=== PATIENT | female | born 1940 | race Two or more races ===

== ENCOUNTER 2018-07-19 17:50 | Inpatient (IN) | payer MEDICARE, MEDICAID ==
[~2018-07-19] VITALS: Ht 152.4 cm; Wt 66.2 kg
[~2018-07-19 17:50] MED LIST: ACET-2605 PO; ACET-868 PO; ACID1TAB12 PO; AMOX-430 PO; ASPI-1169 PO; BISA10SU8 RC; DIAZ5TAB4 PO; IBUP-1953 PO; LISI-603 PO; NA P133E RC
--- NOTE | 2018-07-19 18:10 | NUR ---
Vahid fatima in [facility] - 07/19/18 at 1904 by DHAVAL CHAIR MECHANIC AT BEDSIDE
--- NOTE | 2018-07-19 18:15 | NUR ---
BIB PRIVATE AMB. 77 YEAR OLD FEMALE FROM [facility] PER [address]. COOK FOR EVAL ON CXR RESULT. C/O WEAKNESS. DENIES CP, SOB, DIZZINESS, N/V @ THIS TIME. ALERT AND ORIENTED X4, BREATHING EVEN AND UNLABORED WITH NO DISTRESS NOTED. SKIN WARM TO TOUCH AND INTACT. AWAITING TO BE SEEN BY .
--- NOTE | 2018-07-19 18:20 | NUR ---
MULCHER OPERATOR AT BEDSIDE
[2018-07-19] MEDS ORDERED: MAGN400O6 PO (18:31)
[2018-07-19] MEDS ORDERED: SERT25TA PO (18:31)
[2018-07-19] MEDS ORDERED: LORA10TA68 PO (18:31)
[2018-07-19] MEDS ORDERED: SODI45SP10 BNOSTRILS (18:31)
[2018-07-19 18:35] LABS: BASOPHILS # (AUTO) 0.1 /CMM (0.0-0.2); BASOPHILS % (AUTO) 1.2 % (0.0-2.0); HEMATOCRIT 38 % (33-45); HEMOGLOBIN 12.6 g/dL (11.5-14.8); LYMPHOCYTES # (AUTO) 2.5 /CMM (0.8-4.8); LYMPHOCYTES % (AUTO) 26.4 % (20.0-44.0); MEAN CORPUSCULAR HGB CONC 33 g/dl (31.0-36.0); MEAN CORPUSCULAR VOLUME 98 fL (82-100); MONOCYTES # (AUTO) 0.7 /CMM (0.1-1.30); MONOCYTES % (AUTO) 6.9 % (2.0-12.0); NEUTROPHILS # (AUTO) 5.6 /CMM (1.8-8.9); NEUTROPHILS % (AUTO) 58.5 % (43.0-81.0); PLATELET COUNT (AUTO) 327 /CMM (150-450); RED BLOOD CELL COUNT(AUTO) 3.86 MIL/uL (4.0-5.2); WHITE BLOOD COUNT (AUTO) 9.6 K/uL (4.3-11.0)
[2018-07-19 18:47] LABS: CALCIUM, SERUM 8.9 mg/dL (8.5-10.1); CARBON DIOXIDE 31 mmol/L (21-32); CHLORIDE 104 mmol/L (98-107); CREATININE 0.9 mg/dL (0.6-1.3); GLUCOSE 101 mg/dL (74-106); POTASSIUM 4.4 mmol/L (3.5-5.1); SODIUM SERUM 142 mmol/L (136-145); UREA NITROGEN, BLOOD 19 mg/dL (7-18)
[2018-07-19 19:00] LABS: ALANINE AMINOTRANSFERASE 21 U/L (12-78); ALBUMIN 3.4 g/dL (3.4-5.0); ALKALINE PHOSPHATASE 69 U/L (46-116); ASPARTATE AMINOTRANSFERASE 11 U/L (15-37); B-TYPE NATRIURETIC PEPTIDE 14 PG/ML (0-125); BILIRUBIN,TOTAL 0.2 mg/dL (0.2-1.0)
--- NOTE | 2018-07-19 19:30 | NUR ---
REPORT GIVEN TO HOV TO CONTINUE ABDULLAHI
--- NOTE | 2018-07-19 19:31 | NUR ---
CALLED [facility] SINGLE POINTED OPERATOR CECILIO GAINES WAS PAGED
--- NOTE | 2018-07-19 19:47 | NUR ---
324-2 TELE DX CHF ADMITTING EDER
--- NOTE | 2018-07-19 19:55 | NUR ---
REPORT GIVEN TO KIMBERLEE BENITEZ FOR ABDULLAHI.
[2018-07-19 20:00] VITALS: BP 175/96
[2018-07-19] MEDS ORDERED: NITROGLYCERIN 0.4 MG/TAB BOTTLE SL PRN (20:00)
--- NOTE | 2018-07-19 20:38 | NUR ---
ME/RN RECEIVED PATIENT FROM E.. VIA [facility], PATIENT WAS AWAKE, ALERT, ORIENTED, COMFORTABLE, NO C/O PAIN, NO DISTRES NOTED, ADMISSION DONE PER PROTOCOL, PLAN OF CARE DISCUSSED WITH THE PATIENT AND VERBALIZED UNDERSTANDING AND AGREEMENT, TAUGHT THE USE OF CALL LIGHT AND PLACED IT AT BEDSIDE WITHIN REACH, SNACK GIVEN PER PATIENT'S REQUEST. WILL MONITOR.
[2018-07-19] MEDS ORDERED: ACETAMINOPHEN 325 MG TABLET PO PRN (22:30)
[2018-07-19] MEDS ORDERED: MAGNESIUM HYDROXIDE 30 ML UDC PO PRN (22:30)
[2018-07-19] MEDS ORDERED: BISACODYL SUPP (10 MG) 10 MG/SUPP.RECT SUPP.RECT RC PRN (22:30)
[2018-07-19] MEDS ORDERED: SALINE NASAL SPRAY 0.65% 1 BOTTLE BOTTLE NS PRN (22:30)
[2018-07-19] MEDS ORDERED: LORATADINE 10 MG TABLET PO PRN (22:30)
[2018-07-19] MEDS ORDERED: NA PHOS,M-B/NA PHOS,DI-BA 1 EA ENEMA RC PRN (22:30)
[2018-07-19] MEDS ORDERED: IBUPROFEN 400 MG TABLET PO PRN (22:30)
[2018-07-19] MEDS: DIAZEPAM 5 MG TABLET PO SCH (22:53)
--- NOTE | 2018-07-19 23:00 | NUR ---
MS/RN CECILIO GAINES NP, IS AT BEDSIDE AT THIS TIME.
[2018-07-20] VITALS: BP 154/86
[2018-07-20] MEDS ORDERED: CLONIDINE HCL 0.1 MG TABLET PO PRN (01:00)
[2018-07-20 07:13] LABS: BASOPHILS # (AUTO) 0.1 /CMM (0.0-0.2); BASOPHILS % (AUTO) 0.8 % (0.0-2.0); EOSINOPHILS % (AUTO) 8.1 % (0.0-6.0); HEMATOCRIT 39 % (33-45); HEMOGLOBIN 12.6 g/dL (11.5-14.8); LYMPHOCYTES # (AUTO) 2.7 /CMM (0.8-4.8); LYMPHOCYTES % (AUTO) 31.3 % (20.0-44.0); MEAN CORPUSCULAR HGB CONC 33 g/dl (31.0-36.0); MEAN CORPUSCULAR VOLUME 97 fL (82-100); MONOCYTES # (AUTO) 0.5 /CMM (0.1-1.30); MONOCYTES % (AUTO) 5.8 % (2.0-12.0); NEUTROPHILS # (AUTO) 4.7 /CMM (1.8-8.9); PLATELET COUNT (AUTO) 294 /CMM (150-450); RED BLOOD CELL COUNT(AUTO) 3.96 MIL/uL (4.0-5.2); WHITE BLOOD COUNT (AUTO) 8.7 K/uL (4.3-11.0)
[2018-07-20 07:33] LABS: CALCIUM, SERUM 8.5 mg/dL (8.5-10.1); CARBON DIOXIDE 26 mmol/L (21-32); CHLORIDE 106 mmol/L (98-107); CREATININE 0.7 mg/dL (0.6-1.3); GLUCOSE 94 mg/dL (74-106); MAGNESIUM 2.3 mg/dL (1.8-2.4); PHOSPHORUS 3.7 mg/dL (2.5-4.9); POTASSIUM 4.2 mmol/L (3.5-5.1); SODIUM SERUM 141 mmol/L (136-145); UREA NITROGEN, BLOOD 21 mg/dL (7-18)
[2018-07-20 07:34] LABS: APPEARANCE,URINE CLEAR (CLEAR); BILIRUBIN,URINE NEGATIVE (NEGATIVE); BLOOD, URINE NEGATIVE Ery/uL (NEGATIVE); COLOR,URINE YELLOW (YELLOW); KETONES,URINE NEGATIVE (NEGATIVE); LEUKOCYTE ESTERASE ,URINE NEGATIVE (NEGATIVE); NITRITE, URINE NEGATIVE (NEGATIVE); PROTEIN,URINE NEGATIVE (NEGATIVE); UGLUCOSE NEGATIVE (NEGATIVE); UROBILINOGEN,URINE 0.2 EU/dL (0.2)
--- NOTE | 2018-07-20 07:56 | NUR ---
MS RN OPENING NOTE RECEIVED ASLEEP IN BED LOCKED IN LOWEST POSITION WITH SIDERAILS UP x2 FOR SAFETY. ABLE TO COMMUNICATE NEEDS. ALERT AND ORIENTED x4. NO FACIAL GRIMACING NOTED FOR PAIN. NO SOB OR DISTRESS NOTED ON ROOM AIR TOLERATING WELL. BRP. AMBULATORY WITH ASSISTANCE. CARDIAC DIET. LEFT AC INTACT AND PATENT NO REDNESS OR SWELLING NO IV FLUIDS RUNNING AT THIS TIME. CHEST X-RAY AND LABS ORDERED. DAILY WEIGHT. WILL CONTINUE CONTINUITY OF CARE.
[2018-07-20 08:00] VITALS: BP 124/68
[2018-07-20 08:24] LABS: CHOLESTEROL 182 mg/dL (<200); HDL CHOLESTEROL 70 mg/dL (40-60); LDL 108 mg/dL (0-99); THYROID STIMULATING HORMONE 1.437 uIU/mL (0.358-3.74); TRIGLYCERIDES 73 mg/dL (30-150)
[2018-07-20] MEDS: DIAZEPAM 5 MG TABLET PO SCH ×2 (08:28→12:11)
[2018-07-20] MEDS ORDERED: ENOXAPARIN SODIUM 40 MG/0.4 ML DISP.SYRIN SQ SCH (09:00)
[2018-07-20] MEDS ORDERED: ASPIRIN 81 MG TAB.CHEW PO SCH (09:00)
[2018-07-20] MEDS ORDERED: FUROSEMIDE 40 MG/4 ML VIAL IV SCH ×2 (09:00)
[2018-07-20] MEDS ORDERED: SERTRALINE HCL 25 MG TABLET PO SCH (09:00)
[2018-07-20] MEDS ORDERED: LISINOPRIL (20MG) 20 MG TABLET PO SCH ×2 (09:00)
[2018-07-20] MEDS ORDERED: DIAZEPAM 5 MG TABLET PO SCH (09:00)
[2018-07-20] MEDS ORDERED: DOCUSATE SODIUM 100 MG CAPSULE PO SCH (09:00)
[2018-07-20 09:21] VITALS: BP 143/86
--- NOTE | 2018-07-20 09:21 | NUR ---
MS RN NOTE PATIENT ONLY WANTED TO TAKE 20 MG NOT 40MG. OTHER 20MG WASTED. SHE CONCERNED THAT " AT THE CUSTODIAL I ONLY TAKE 20 MG TWICE A DAY AND WILL NOT TAKE 40MG MY BLOOD PRESSURE WILL GO DOWN DRAMATICALLY. I WILL TAKE 1/2 PILLS GIVEN TO ME". NOTIFIED -NERY
--- NOTE | 2018-07-20 10:30 | NUR ---
MS RN NOTE PER DR. GABRIEL NOT TO ADMINISTER LASIX IV DOSE AT THIS TIME AND PATIENT REFUSED LASIX WELL. ORDERED NOTED AND CARRIED OUT.
--- NOTE | 2018-07-20 10:30 | NUR ---
MS RN NOTE PATIENT REFUSED SCHEDULED ZOLOFT DOSE. PATIENT STATED "ZOLOFT MAKES ME FEEL WEIRD AND I DONT TAKE IT AT THE SHELTER"
--- NOTE | 2018-07-20 11:39 | NUR ---
ms rn note report given to rn powerhouse mechanic supervisor- fredrick at [facility]. all discharge instructions given to rn powerhouse mechanic supervisor. discharge instructions received back. all nursing care needs endorsed to powerhouse mechanic supervisor.
--- NOTE | 2018-07-20 12:36 | NUR ---
TEACHER OF THE HEARING IMPAIRED NOTE PATIENT DISCHARGED INSTABLE CONDITION BACK TO [facility]. ALL DISCHARGE INSTRUCTIONS GIVEN TO RN CREDIT REVIEW OFFICER-SHIRLEY AND PATIENT, PATIENT ABLE TO RETURN BACK INSTRUCTIONS. ALL BELONGINGS ACCOUNTED FOR AND SENT WITH PATIENT UPON DISCHARGE. SKIN INTACT AND PATENT, IV REMOVED. ALERT AND ORIENTED X4. NO PAIN NOTED AT THIS TIME. NO SOB OR DISTRESS NOTED ON ROOM AIR TOLERATING WELL. ALL DUE MEDICATIONS GIVEN ORDERED. ALL NURSING CARE NEEDS RENDERED. LEFT VIA AMBULANCE
== END 2018-07-20 12:30 | DRG 293 ==
LOC: ER 17:56 → TELE 19:49 → MED 07-20 02:07
PROVIDERS: ADMIT Registered Nurse; ATTEND Student in an Organized Health Care Education/Training Program
DX: I11.0 Hypertensive heart disease with heart failure (principal); J06.9 Acute upper respiratory infection, unspecified; E86.0 Dehydration; M19.90 Unspecified osteoarthritis, unspecified site; M79.2 Neuralgia and neuritis, unspecified; F41.9 Anxiety disorder, unspecified; E66.9 Obesity, unspecified; Z68.28 Body mass index [BMI] 28.0-28.9, adult; Z88.2 Allergy status to sulfonamides; K21.9 Gastro-esophageal reflux disease without esophagitis; I50.33 Acute on chronic diastolic (congestive) heart failure
CPT/HCPCS: 36415; 71045-TC; 80048-TC; 80061-TC; 80076-TC; 81000-TC; 83605-TC; 83735-TC; 83880; 84100-TC; 84443-TC; 84484-TC; 85025-TC; 85730-TC; 87040-TC; 87081-TC; 93307-TC; A4606; G0378; J1650; J1940; Z7610

== ENCOUNTER 2018-09-25 14:20 | Outpatient (CLI) | payer MEDICARE, MEDICAID ==
[~2018-09-25 14:20] MED LIST changes: -ACID1TAB12 PO; -AMOX-430 PO; +LORA10TA68 PO; +MAGN400O6 PO; +SERT25TA PO; +SODI45SP10 BNOSTRILS
== END 2018-09-25 23:59 ==
LOC: WOU 14:20
PROVIDERS: ATTEND Surgery
DX: N64.4 Mastodynia (principal); L98.9 Disorder of the skin and subcutaneous tissue, unspecified; E66.09 Other obesity due to excess calories; R26.2 Difficulty in walking, not elsewhere classified; Z68.28 Body mass index [BMI] 28.0-28.9, adult
CPT/HCPCS: G0463

== ENCOUNTER 2018-12-22 00:26 | Emergency (ER) | payer MEDICARE, MEDICAID ==
[~2018-12-22] VITALS: Ht 152.4 cm; Wt 63.0 kg
--- NOTE | 2018-12-22 00:30 | NUR ---
RADHA FROM [facility]. WITH COMPLAINT FOR LOW O2 SAT AND SOB. ASSISTED TO ER BED 10 COMFORTABLY. [facility] PROVIDED. Addendum: 12/22/18 at 0045 by MARII PATIENT CLAIMED O2 SAT DROPS TO 87% RA VIA PULSE OX LASTED 2-3 HRS. PATIENT THEN SUMMONED TO NIGHT RN TO SEND HER OUT FOR MGT.
--- NOTE | 2018-12-22 00:38 | NUR ---
SEEN AND EXAMINED BY DR. BALDERAS
--- NOTE | 2018-12-22 00:49 | NUR ---
ECG DONE BY SEARCH OPTIMIZATION ANALYST AT BEDSIDE.
[2018-12-22 00:51] LABS: BASOPHILS # (AUTO) 0.1 /CMM (0.0-0.2); BASOPHILS % (AUTO) 1.6 % (0.0-2.0); EOSINOPHILS % (AUTO) 10.7 % (0.0-6.0); HEMATOCRIT 37 % (33-45); HEMOGLOBIN 12.8 g/dL (11.5-14.8); LYMPHOCYTES % (AUTO) 15.8 % (20.0-44.0); MEAN CORPUSCULAR HGB CONC 35 g/dl (31.0-36.0); MEAN CORPUSCULAR VOLUME 97 fL (82-100); MONOCYTES # (AUTO) 0.6 /CMM (0.1-1.30); MONOCYTES % (AUTO) 8.6 % (2.0-12.0); NEUTROPHILS # (AUTO) 4.1 /CMM (1.8-8.9); NEUTROPHILS % (AUTO) 63.3 % (43.0-81.0); PLATELET COUNT (AUTO) 313 /CMM (150-450); RED BLOOD CELL COUNT(AUTO) 3.84 MIL/uL (4.0-5.2); WHITE BLOOD COUNT (AUTO) 6.4 K/uL (4.3-11.0)
[2018-12-22] MEDS ORDERED: IPRATROPIUM NEB FS 0.5 MG/2.5 ML AMPUL.NEB ONE (00:54)
[2018-12-22] MEDS ORDERED: ALBUTEROL FS 2.5 MG/3 ML VIAL.NEB ONE (00:54)
--- NOTE | 2018-12-22 00:55 | NUR ---
CHEST X-RAY DONE BY BONE DRIER AT BEDSIDE.
--- NOTE | 2018-12-22 00:57 | NUR ---
BREATHING TX AND RA ABG DONE BY RT.
[2018-12-22 00:59] LABS: CARBON DIOXIDE 26 mmol/L (21-32); CHLORIDE 101 mmol/L (98-107); GLUCOSE 109 mg/dL (74-106); POTASSIUM 4.1 mmol/L (3.5-5.1); SODIUM SERUM 138 mmol/L (136-145); UREA NITROGEN, BLOOD 20 mg/dL (7-18)
[2018-12-22] MEDS ORDERED: IPRATROPIUM NEB FS 0.5 MG/2.5 ML AMPUL.NEB NEB ONE (01:00)
[2018-12-22] MEDS ORDERED: ALBUTEROL FS 2.5 MG/3 ML VIAL.NEB CONTNEB ONE (01:00)
[2018-12-22 01:11] LABS: ALANINE AMINOTRANSFERASE 31 U/L (12-78); ALBUMIN 3.5 g/dL (3.4-5.0); ALKALINE PHOSPHATASE 68 U/L (46-116); ASPARTATE AMINOTRANSFERASE 18 U/L (15-37); B-TYPE NATRIURETIC PEPTIDE 19 PG/ML (0-125); BILIRUBIN,TOTAL 0.2 mg/dL (0.2-1.0); TOTAL PROTEIN, SERUM 7.4 g/dL (6.4-8.2)
[2018-12-22 01:11] LABS: ABG BASE EXCESS 0.4 mmol/L; ABG OXYGEN SATURATION 90.5 % (92.0-98.5); ABG PCO2 40.7 mmHg (35.0-45.0); ABG PH 7.408 (7.350-7.450); ABG PO2 60.3 mmHg (75.0-100.0); AaDO2 40.7 mmHg; COHb 0.6 % (0.5-1.5); MetHb 0.3 % (0.0-1.5); O2Hb 89.7 % (94.0-97.0); SITE, ABG Right Radial; VENT MODE, BG ROOM AIR
--- NOTE | 2018-12-22 02:17 | NUR ---
[facility] ETA [phone]. TRIP NUMBER [id number]
--- NOTE | 2018-12-22 02:30 | NUR ---
D/C INSTRUCTIONS GIVEN TO PATIENT. PRINTED MATERIAL AND PRESCRIPTION EXPLAINED AND GIVEN TO PATIENT. ALL INQUIRIES ANSWERED WITH SATISFACTION. REPORT GIVEN TO SIOBHAN VICENTE OF [address] [place] [address]. ETA FOR LEGAL RECORDS CLERK IN 30 MINS.
--- NOTE | 2018-12-22 02:55 | NUR ---
PICKED UP BY [facility] UNIT #[id number]. PATIENT IN STABLE CONDITION. ABLE TO TRANSFER BY SELF FROM ER BED TO STRETCHER. NO SOB NOTED. WITH MINIMAL PRODUCTIVE COUGH NOTED. VS WNL. REPORT GIVEN TO EMT. PATIENT LEFT AT THIS TIME WITH ALL BELONGINGS NOTED AND ACCOUNTED FOR.
[2018-12-22 02:59] VITALS: BP 130/87
== END 2018-12-22 02:55 ==
LOC: ER 00:28
DX: J40 Bronchitis, not specified as acute or chronic (principal); I11.0 Hypertensive heart disease with heart failure; I50.9 Heart failure, unspecified; G62.9 Polyneuropathy, unspecified; F41.9 Anxiety disorder, unspecified; E55.9 Vitamin D deficiency, unspecified; Z79.82 Long term (current) use of aspirin; Z88.2 Allergy status to sulfonamides; Z88.5 Allergy status to narcotic agent; Z88.8 Allergy status to other drugs, medicaments and biological substances; Z88.9 Allergy status to unspecified drugs, medicaments and biological substances
CPT/HCPCS: 36415; 36600; 71045-TC; 80048-TC; 80076-TC; 82803-TC; 82962-TC; 83880; 84484-TC; 85025-TC; 85730-TC; 87040-TC

== ENCOUNTER 2019-01-12 17:14 | Emergency (ER) | payer MEDICARE, MEDICAID ==
[~2019-01-12] VITALS: Ht 152.4 cm; Wt 69.4 kg
--- NOTE | 2019-01-12 17:15 | NUR ---
AGUSTIN FROM [facility], C/O OF COUGH/ CONGESTION. TO ER BED 9, HOOKED TO MONITOR, CHANGED TO GOWN, PROVIDED W WARM BLANKET, AWAITING MD SORIANO.
--- NOTE | 2019-01-12 17:53 | NUR ---
DR MADRID AT BEDSIDE
[2019-01-12 18:27] LABS: BASOPHILS # (AUTO) 0.1 /CMM (0.0-0.2); BASOPHILS % (AUTO) 0.9 % (0.0-2.0); EOSINOPHILS % (AUTO) 8.3 % (0.0-6.0); HEMATOCRIT 36 % (33-45); LYMPHOCYTES # (AUTO) 1.8 /CMM (0.8-4.8); LYMPHOCYTES % (AUTO) 18.5 % (20.0-44.0); MEAN CORPUSCULAR HGB CONC 34 g/dl (31.0-36.0); MEAN CORPUSCULAR VOLUME 99 fL (82-100); MONOCYTES # (AUTO) 0.8 /CMM (0.1-1.30); MONOCYTES % (AUTO) 8.3 % (2.0-12.0); NEUTROPHILS # (AUTO) 6.4 /CMM (1.8-8.9); PLATELET COUNT (AUTO) 352 /CMM (150-450); RED BLOOD CELL COUNT(AUTO) 3.62 MIL/uL (4.0-5.2); WHITE BLOOD COUNT (AUTO) 9.9 K/uL (4.3-11.0)
[2019-01-12 18:35] LABS: CALCIUM, SERUM 9.1 mg/dL (8.5-10.1); CARBON DIOXIDE 28 mmol/L (21-32); CHLORIDE 103 mmol/L (98-107); CREATININE 0.8 mg/dL (0.6-1.3); GLUCOSE 100 mg/dL (74-106); POTASSIUM 4.1 mmol/L (3.5-5.1); SODIUM SERUM 140 mmol/L (136-145); UREA NITROGEN, BLOOD 19 mg/dL (7-18)
[2019-01-12 18:47] LABS: ALANINE AMINOTRANSFERASE 21 U/L (12-78); ALBUMIN 3.3 g/dL (3.4-5.0); ALKALINE PHOSPHATASE 74 U/L (46-116); ASPARTATE AMINOTRANSFERASE 10 U/L (15-37); B-TYPE NATRIURETIC PEPTIDE 34 PG/ML (0-125); BILIRUBIN,TOTAL 0.2 mg/dL (0.2-1.0); TOTAL PROTEIN, SERUM 7.1 g/dL (6.4-8.2)
--- NOTE | 2019-01-12 19:44 | NUR ---
REPORT GIVEN TO LANCE MCCANN FOR ABDULLAHI
--- NOTE | 2019-01-12 19:54 | NUR ---
SPOKE WITH [facility] FOR BLS TRANSPORT ETA [phone] TRIP#[id number]. SPOKE WITH DOROTHEA
--- NOTE | 2019-01-12 20:07 | NUR ---
PT RECEIVED FROM SIOBHAN ULCAS FOR ABDULLAHI. PT IN BED. NAD. AWAITING FOR TRANSPORT BACK.
--- NOTE | 2019-01-12 20:54 | NUR ---
[facility] ETA 10MINS.
--- NOTE | 2019-01-12 21:36 | NUR ---
GAVE REPORT TO [facility] FOR TRANSPORTATION ABDULLAHI
--- NOTE | 2019-01-12 21:36 | NUR ---
REPORT GIVEN TO SIOBHAN KENNY AT [facility].
[2019-01-12 21:52] VITALS: BP 138/81
== END 2019-01-12 21:52 | disposition home or self-care (01) ==
LOC: ER 17:19
DX: J40 Bronchitis, not specified as acute or chronic (principal); I11.0 Hypertensive heart disease with heart failure; I50.9 Heart failure, unspecified; F41.9 Anxiety disorder, unspecified; G62.9 Polyneuropathy, unspecified; Z88.2 Allergy status to sulfonamides; Z88.5 Allergy status to narcotic agent; Z88.6 Allergy status to analgesic agent; Z88.8 Allergy status to other drugs, medicaments and biological substances; Z79.899 Other long term (current) drug therapy; Z79.82 Long term (current) use of aspirin
CPT/HCPCS: 36415; 71045-TC; 80048-TC; 80076-TC; 83880; 84484-TC; 85025-TC

== ENCOUNTER 2019-02-15 23:49 | Emergency (ER) | payer MEDICARE, MEDICAID ==
[~2019-02-15] VITALS: Ht 152.4 cm; Wt 63.5 kg
[~2019-02-15 23:49] MED LIST changes: +BISA10SU11 RC; -BISA10SU8 RC
[2019-02-16] MEDS ORDERED: ACETAMINOPHEN ES 500 MG TABLET ONE (00:36)
[2019-02-16 00:50] LABS: BASOPHILS # (AUTO) 0.1 /CMM (0.0-0.2); BASOPHILS % (AUTO) 1.4 % (0.0-2.0); EOSINOPHILS % (AUTO) 12.3 % (0.0-6.0); HEMATOCRIT 35 % (33-45); HEMOGLOBIN 11.9 g/dL (11.5-14.8); LYMPHOCYTES # (AUTO) 2.6 /CMM (0.8-4.8); LYMPHOCYTES % (AUTO) 32.5 % (20.0-44.0); MEAN CORPUSCULAR HGB CONC 34 g/dl (31.0-36.0); MEAN CORPUSCULAR VOLUME 98 fL (82-100); MONOCYTES # (AUTO) 0.5 /CMM (0.1-1.30); MONOCYTES % (AUTO) 5.8 % (2.0-12.0); NEUTROPHILS # (AUTO) 3.8 /CMM (1.8-8.9); PLATELET COUNT (AUTO) 291 /CMM (150-450); RED BLOOD CELL COUNT(AUTO) 3.56 MIL/uL (4.0-5.2)
[2019-02-16 00:58] LABS: CALCIUM, SERUM 8.8 mg/dL (8.5-10.1); CARBON DIOXIDE 29 mmol/L (21-32); CHLORIDE 100 mmol/L (98-107); GLUCOSE 104 mg/dL (74-106); POTASSIUM 4.3 mmol/L (3.5-5.1); SODIUM SERUM 134 mmol/L (136-145); UREA NITROGEN, BLOOD 26 mg/dL (7-18)
[2019-02-16] MEDS: ACETAMINOPHEN ES 500 MG TABLET PO ONE (01:04)
--- NOTE | 2019-02-16 01:05 | NUR ---
PT BIBRA. C/O "HAVING NECK PAIN AND FEELING WEAK" -SOB NOTED. AOX4. AMBULATORY.VSS
[2019-02-16 01:42] LABS: APPEARANCE,URINE Clear (CLEAR); BILIRUBIN,URINE Negative (NEGATIVE); BLOOD, URINE Negative Ery/uL (NEGATIVE); COLOR,URINE Yellow (YELLOW); KETONES,URINE Negative (NEGATIVE); LEUKOCYTE ESTERASE ,URINE Small (NEGATIVE); NITRITE, URINE Negative (NEGATIVE); PH,URINE 5.5 (5.0-8.0); PROTEIN,URINE Negative (NEGATIVE); UGLUCOSE Negative (NEGATIVE); UROBILINOGEN,URINE 0.2 EU/dL (0.2)
[2019-02-16 02:01] LABS: BACTERIA,URINE None seen /HPF (None Seen); RBC,URINE 0-2 /HPF (0-2); SQUAMOUS EPITHELIAL CELL,UR Few /HPF (None Seen)
--- NOTE | 2019-02-16 03:16 | NUR ---
[facility] CALLED FOR TRANSPORT. ETA 1 HR. TRIP# [id number]
[2019-02-16 04:59] VITALS: BP 111/73
== END 2019-02-16 05:00 | disposition home or self-care (01) ==
LOC: ER 02-16
DX: R53.1 Weakness (principal); R51 Headache; I11.0 Hypertensive heart disease with heart failure; I50.9 Heart failure, unspecified; G62.9 Polyneuropathy, unspecified; F41.9 Anxiety disorder, unspecified; Z88.2 Allergy status to sulfonamides; Z88.5 Allergy status to narcotic agent; Z88.1 Allergy status to other antibiotic agents; Z88.6 Allergy status to analgesic agent; Z79.899 Other long term (current) drug therapy; Z79.82 Long term (current) use of aspirin
CPT/HCPCS: 36415; 70450; 71045; 72125; 80048; 81001; 85025; 93005; 99284; A6403; 81000-TC

== ENCOUNTER 2019-08-20 21:15 | Inpatient (IN) | payer MEDICARE, MEDICAID ==
[~2019-08-20] VITALS: Ht 152.4 cm; Wt 68.5 kg
[2019-08-20 20:40] VITALS: BP 139/78
--- NOTE | 2019-08-20 21:30 | NUR ---
PT BIB RA WITH A C/O SOB. PT USES OXYGEN 2.5L VIA NC AT THE FACILITY WHEN NEEDED. PT WAS PLACED ON 2.5L BY RESCUE AND IS SATURATING AT 96%. PT HAS BILATERAL WHEEZES AND IS SOB WITH EXCERTION.
--- NOTE | 2019-08-20 21:40 | NUR ---
20g iv started in rac.
--- NOTE | 2019-08-20 21:50 | NUR ---
PT WAS PLACED ON A BEDPAN AND URINE SAMPLE WAS OBTAINED.
[2019-08-20] MEDS ORDERED: methylPREDNISolone SOD SUCC 125 MG/2ML VIAL ONE (21:57)
[2019-08-20] MEDS ORDERED: ALBUTEROL FS 2.5 MG/3 ML VIAL.NEB NEB ONE (22:00)
[2019-08-20] MEDS ORDERED: methylPREDNISolone SOD SUCC 125 MG/2ML VIAL IV ONE (22:00)
[2019-08-20] MEDS ORDERED: IPRATROPIUM NEB FS 0.5 MG/2.5 ML AMPUL.NEB NEB ONE ×2 (22:00→23:00)
[2019-08-20 22:03] LABS: BASOPHILS # (AUTO) 0.1 /CMM (0.0-0.2); BASOPHILS % (AUTO) 1.8 % (0.0-2.0); EOSINOPHILS % (AUTO) 10.4 % (0.0-6.0); HEMATOCRIT 36 % (33-45); LYMPHOCYTES # (AUTO) 1.4 /CMM (0.8-4.8); LYMPHOCYTES % (AUTO) 18.3 % (20.0-44.0); MEAN CORPUSCULAR HGB CONC 33 g/dl (31.0-36.0); MEAN CORPUSCULAR VOLUME 98 fL (82-100); MONOCYTES # (AUTO) 0.4 /CMM (0.1-1.30); MONOCYTES % (AUTO) 5.1 % (2.0-12.0); NEUTROPHILS # (AUTO) 5.1 /CMM (1.8-8.9); NEUTROPHILS % (AUTO) 64.4 % (43.0-81.0); PLATELET COUNT (AUTO) 315 /CMM (150-450); RED BLOOD CELL COUNT(AUTO) 3.67 MIL/uL (4.0-5.2); WHITE BLOOD COUNT (AUTO) 7.9 K/uL (4.3-11.0)
[2019-08-20 22:11] LABS: CALCIUM, SERUM 9.4 mg/dL (8.5-10.1); CARBON DIOXIDE 31 mmol/L (21-32); CHLORIDE 102 mmol/L (98-107); CREATININE 1.3 mg/dL (0.6-1.3); GLUCOSE 119 mg/dL (74-106); SODIUM SERUM 139 mmol/L (136-145); UREA NITROGEN, BLOOD 22 mg/dL (7-18)
--- NOTE | 2019-08-20 22:14 | NUR ---
PT REC'D MEDICAITON ORDERED.
[2019-08-20] MEDS ORDERED: IPRATROPIUM NEB FS 0.5 MG/2.5 ML AMPUL.NEB ONE ×2 (22:23→22:56)
[2019-08-20] MEDS ORDERED: ALBUTEROL FS 2.5 MG/3 ML VIAL.NEB ONE ×2 (22:23→22:56)
[2019-08-20 22:24] LABS: ALANINE AMINOTRANSFERASE 40 U/L (12-78); ALBUMIN 3.5 g/dL (3.4-5.0); ALKALINE PHOSPHATASE 62 U/L (46-116); ASPARTATE AMINOTRANSFERASE 22 U/L (15-37); B-TYPE NATRIURETIC PEPTIDE 16 PG/ML (0-125); BILIRUBIN,TOTAL 0.2 mg/dL (0.2-1.0)
--- NOTE | 2019-08-20 22:50 | NUR ---
EPIC PAGED FOR PANEL CALL
[2019-08-20] MEDS ORDERED: ALBUTEROL FS 2.5 MG/0.5 ML VIAL.NEB NEB ONE (23:00)
--- NOTE | 2019-08-20 23:05 | NUR ---
epic paged again for panel call
--- NOTE | 2019-08-20 23:16 | NUR ---
called rn sup for tele bed, waiting for bed assignment
--- NOTE | 2019-08-20 23:54 | NUR ---
TELE [id number]
--- NOTE | 2019-08-20 23:55 | NUR ---
PT APPEARS TO BE RESTING COMFORTABLY WITH NO S/S OF PAIN OR DISTRESS NOTED.
--- NOTE | 2019-08-20 23:56 | NUR ---
CALLING REPORT TO SIOBHAN LOREDO
[2019-08-21] MEDS ORDERED: BISACODYL SUPP (10 MG) 10 MG/SUPP.RECT SUPP.RECT RC PRN
[2019-08-21] MEDS ORDERED: SALINE NASAL SPRAY 0.65% 1 BOTTLE BOTTLE NS PRN
[2019-08-21] MEDS ORDERED: ONDANSETRON HCL/PF 4 MG/2 ML VIAL IVP PRN
[2019-08-21] MEDS ORDERED: MAG HYDROX/AL HYDROX/SIMETH 30 ML UDC PO PRN
[2019-08-21] MEDS ORDERED: Z GUARD REMEDY 2 OZ OINT TP PRN
[2019-08-21] MEDS ORDERED: LORATADINE 10 MG TABLET PO PRN
[2019-08-21] MEDS ORDERED: MAGNESIUM HYDROXIDE 30 ML UDC PO PRN
[2019-08-21 00:06] LABS: APPEARANCE,URINE Clear (CLEAR); BILIRUBIN,URINE Negative (NEGATIVE); BLOOD, URINE Negative Ery/uL (NEGATIVE); COLOR,URINE Yellow (YELLOW); KETONES,URINE Negative (NEGATIVE); LEUKOCYTE ESTERASE ,URINE Small (NEGATIVE); NITRITE, URINE Negative (NEGATIVE); PH,URINE 5.5 (5.0-8.0); PROTEIN,URINE Negative (NEGATIVE); UGLUCOSE Negative (NEGATIVE); UROBILINOGEN,URINE 0.2 EU/dL (0.2)
[2019-08-21] MEDS ORDERED: ENOXAPARIN SODIUM 40 MG/0.4 ML DISP.SYRIN SQ ONE (01:00)
[2019-08-21 03:32] LABS: BACTERIA,URINE Few /HPF (None Seen); RBC,URINE 0-2 /HPF (0-2); SQUAMOUS EPITHELIAL CELL,UR Few /HPF (None Seen); WBC,URINE 21-50 /HPF (0-3)
[2019-08-21 04:00] VITALS: BP 115/68
--- NOTE | 2019-08-21 06:46 | NUR ---
E BUSINESS CONSULTANT ADMITTING NOTES RECEIVED PT FROM ER VIA [facility] IN STABLE CONDITION. RESPIRATIONS EVEN AND UNLABORED WITH NO S/S OF ACUTE DISTRESS OR SOB NOTED. NO COMPLAINTS OF PAIN AT THIS TIME. PT NOTED WITH RAC #20G PATENT AND INTACT AND SL. SAFETY MEASURES IN PLACE WITH BED IN LOWEST LOCKED POSITION WITH SIDE RAILS UP X2. ORIENTED PT TO UNIT AND STAFF. CALL LIGHT WITHIN REACH. WILL CONTINUE TO MONITOR.
--- NOTE | 2019-08-21 06:51 | NUR ---
BUTCHER HELPER NOTES PT IN BED AWAKE AND ABLE TO MAKE NEEDS KNOWN. RESPIRATIONS EVEN AND UNLABORED WITH NO S/S OF ACUTE DISTRESS OR SOB NOTED. NO COMPLAINTS OF PAIN AT THIS TIME. PT NOTED WITH RAC #20G PATENT AND INTACT AND SL. SAFETY MEASURES IN PLACE WITH BED IN LOWEST LOCKED POSITION WITH SIDE RAILS UP X2. CALL LIGHT WITHIN REACH. WILL ENDORSE TO ONCOMING NURSE FOR ABDULLAHI.
--- NOTE | 2019-08-21 07:50 | NUR ---
TELE/RN OPENING NOTE Patient is resting in bed, A/O x4, showing no signs of acute distress or SOB, breathing is even and unlabored, saturating 95% on 3L NC. IV line in the RAC is clean and intact s/l. Patient has no complaints of pain at this time. Patient is able to ambulate to the bathroom on her own. Bed is in lowest position, side rails x2 in upright position call light is within reach and patient is aware of how to call for assistance when needed. Will continue with plan of care.
[2019-08-21 08:00] VITALS: BP 122/73
[2019-08-21 08:23] LABS: BASOPHILS % (AUTO) 0.4 % (0.0-2.0); EOSINOPHILS % (AUTO) 0.1 % (0.0-6.0); HEMATOCRIT 37 % (33-45); HEMOGLOBIN 12.4 g/dL (11.5-14.8); LYMPHOCYTES # (AUTO) 0.6 /CMM (0.8-4.8); LYMPHOCYTES % (AUTO) 5.7 % (20.0-44.0); MEAN CORPUSCULAR HGB CONC 33 g/dl (31.0-36.0); MEAN CORPUSCULAR VOLUME 98 fL (82-100); MONOCYTES # (AUTO) 0.1 /CMM (0.1-1.30); MONOCYTES % (AUTO) 0.6 % (2.0-12.0); NEUTROPHILS # (AUTO) 10.1 /CMM (1.8-8.9); NEUTROPHILS % (AUTO) 93.2 % (43.0-81.0); PLATELET COUNT (AUTO) 341 /CMM (150-450); WHITE BLOOD COUNT (AUTO) 10.8 K/uL (4.3-11.0)
[2019-08-21 08:31] LABS: CALCIUM, SERUM 9.4 mg/dL (8.5-10.1); MAGNESIUM 1.8 mg/dL (1.8-2.4); PHOSPHORUS 3.2 mg/dL (2.5-4.9); POTASSIUM 3.9 mmol/L (3.5-5.1)
[2019-08-21 08:39] LABS: THYROID STIMULATING HORMONE 0.74 uIU/mL (0.358-3.74)
[2019-08-21] MEDS ORDERED: methylPREDNISolone SOD SUCC 40 MG/ML VIAL IV SCH (09:00)
[2019-08-21] MEDS: SERTRALINE HCL 25 MG TABLET PO SCH (09:00)
[2019-08-21] MEDS: ENOXAPARIN SODIUM 30 MG/0.3 ML DISP.SYRIN SQ SCH (09:00)
[2019-08-21] MEDS: ASPIRIN 81 MG TAB.CHEW PO SCH ×2 (09:00→17:11)
[2019-08-21] MEDS: LISINOPRIL (20MG) 20 MG TABLET PO SCH ×2 (09:16→17:00)
[2019-08-21] MEDS: DIAZEPAM 5 MG TABLET PO SCH ×4 (09:16→21:48)
[2019-08-21] MEDS: CEPHALEXIN MONOHYDRATE 500 MG CAPSULE PO SCH ×3 (09:17→17:11)
[2019-08-21] MEDS: methylPREDNISolone SOD SUCC 40 MG/ML VIAL IV SCH ×2 (11:30→17:00)
--- NOTE | 2019-08-21 15:23 | NUR ---
Social service consult requested by Dr. Muniz for continuity of care. Per chart review and MD notes, pt. is a 78-year-old female with a history of hypertension, anxiety, and CHF, who presented to the ER complaining of shortness of breath. PROCESS INSPECTOR met with the pt. bedside and introduced herself and her role. Pt is alert and oriented x 4. Pt's mood is congruent. Pt. states she resides at [facility] and will go back there for short term for rehabilitation. Per pt. she resides alone and will go back home once she is discharged from [facility]. Pt. has good family support from her daughter Sonia and son Trevor. PROCESS INSPECTOR provided pt with active listening and supportive counseling. No other social service needs are requested at this time. PROCESS INSPECTOR updated briefcase sewer Jace regarding pt residing currently at [facility].
[2019-08-21 16:00] VITALS: BP 105/52
--- NOTE | 2019-08-21 16:00 | NUR ---
MS/RN note Called [facility] 3 times to confirm diuretic medication that patient stated she needed to take, was told nurses are in meetings and not able to take a phone call. Medication not seen on [facility] home med list. Offered patient that the MD here can order a diuretic but patient refused and prefers to take the diuretic she has been taking at [facility].
--- NOTE | 2019-08-21 18:30 | NUR ---
MS/RN OPENING NOTE Patient is resting in bed, A/O x4, showing no signs of acute distress or SOB, breathing is even and unlabored, saturating 95% on 3L NC. IV line in the RAC is clean and intact s/l. Patient has no complaints of pain at this time. Patient is able to ambulate to the bathroom on her own. All patient needs met, all due meds given. Bed is in lowest position, side rails x2 in upright position call light is within reach and patient is aware of how to call for assistance when needed. Will endorse to maintenance supervisor 2nd shift.
--- NOTE | 2019-08-21 19:05 | NUR ---
MS RN NOTES RECEIVED PT IN BED AWAKE AND ABLE TO MAKE NEEDS KNOWN. PT A/O X3. RESPIRATIONS EVEN AND UNLABORED WITH NO S/S OF ACUTE DISTRESS OR SOB NOTED. NO COMPLAINTS OF PAIN AT THIS TIME. PT NOTED WITH RAC #20G PATENT AND INTACT AND SL. SAFETY MEASURES IN PLACE WITH BED IN LOWEST LOCKED POSITION WITH SIDE RAILS UP X2. CALL LIGHT WITHIN REACH. WILL CONTINUE TO MONITOR.
[2019-08-21 20:00] VITALS: BP 112/68
[2019-08-21] MEDS: IPRATROPIUM NEB FS 0.5 MG/2.5 ML AMPUL.NEB NEB SCH (20:12)
[2019-08-21] MEDS: ALBUTEROL FS 2.5 MG/0.5 ML VIAL.NEB NEB SCH (20:12)
[2019-08-21] MEDS: ACETAMINOPHEN 325 MG TABLET PO PRN (21:49)
[2019-08-21] MEDS: GUAIFENESIN/D-METHORPHAN HB 5 ML UDC PO PRN (23:38)
[2019-08-22] MEDS: ACETAMINOPHEN 325 MG TABLET PO PRN ×2 (06:11→18:58)
[2019-08-22] MEDS: ALBUTEROL FS 2.5 MG/0.5 ML VIAL.NEB NEB SCH ×4 (07:15→19:16)
[2019-08-22] MEDS: IPRATROPIUM NEB FS 0.5 MG/2.5 ML AMPUL.NEB NEB SCH ×4 (07:15→19:16)
--- NOTE | 2019-08-22 07:15 | NUR ---
RN OPENING NOTES RECEIVED PATIENT IN BED RESTING. A/OX3, ABLE TO MAKE NEEDS KNOWN. NOT IN ANY FORM OF DISTRESS. NO SOB. DENIED PAIN OR DISCOMFORT AT THIS TIME. IV ACCESS INTACT AND PATENT. KEPT PATIENT SAFE AND COMFORTABLE. BED IN LOW/LOCKED POSITION SIDERAILS UPX2, CALL LIGHT IN REACH. WILL CONT TO MONITOR ACCORDINGLY.
--- NOTE | 2019-08-22 07:23 | NUR ---
MS RN NOTES PT IN BED AWAKE AND ABLE TO MAKE NEEDS KNOWN. PT A/O X3. RESPIRATIONS EVEN AND UNLABORED WITH NO S/S OF ACUTE DISTRESS OR SOB NOTED THROUGHOUT SHIFT. NO COMPLAINTS OF PAIN AT THIS TIME. PT NOTED WITH RAC #20G PATENT AND INTACT AND SL. SAFETY MEASURES IN PLACE WITH BED IN LOWEST LOCKED POSITION WITH SIDE RAILS UP X2. CALL LIGHT WITHIN REACH. WILL ENDORSE TO ONCOMING NURSE FOR ABDULLAHI.
[2019-08-22 08:22] VITALS: BP 119/80
[2019-08-22] MEDS: DIAZEPAM 5 MG TABLET PO SCH ×4 (08:39→22:30)
[2019-08-22] MEDS: CEPHALEXIN MONOHYDRATE 500 MG CAPSULE PO SCH ×3 (08:39→18:57)
[2019-08-22] MEDS: ASPIRIN 81 MG TAB.CHEW PO SCH ×2 (08:39→18:58)
[2019-08-22] MEDS: LISINOPRIL (20MG) 20 MG TABLET PO SCH ×2 (08:39→18:57)
[2019-08-22] MEDS: methylPREDNISolone SOD SUCC 40 MG/ML VIAL IV SCH ×2 (08:42→17:00)
[2019-08-22] MEDS: SERTRALINE HCL 25 MG TABLET PO SCH (08:43)
[2019-08-22] MEDS: ENOXAPARIN SODIUM 30 MG/0.3 ML DISP.SYRIN SQ SCH (08:43)
[2019-08-22] MEDS: GUAIFENESIN/D-METHORPHAN HB 5 ML UDC PO PRN ×2 (09:35→22:50)
[2019-08-22] MEDS: MENTHOL/CETYLPYRD (CEPACOL) 1 LOZ LOZENGE PO PRN ×2 (10:42→22:30)
--- NOTE | 2019-08-22 19:30 | NUR ---
MS RN NOTES bedside report recieved from yandel chand. ABLE TO MAKE NEEDS KNOWN. PT A/O X3. RESPIRATIONS EVEN AND UNLABORED WITH NO S/S OF ACUTE DISTRESS OR SOB NOTED THROUGHOUT SHIFT. NO COMPLAINTS OF PAIN AT THIS TIME. PT NOTED WITH RAC #20G PATENT AND INTACT AND SL. SAFETY MEASURES IN PLACE WITH BED IN LOWEST LOCKED POSITION patient sitting at side of bed. CALL LIGHT WITHIN REACH. will cont to monitor.
--- NOTE | 2019-08-22 19:45 | NUR ---
RN CLOSING NOTES PATIENT IN STABLE CONDITION. ALL NEEDS ATTENDED AND PROVIDED. ASSISTED WITH ADLS. ALL DUE MEDICATIONS GIVEN ORDERED. KEPT PATIENT SAFE AND COMFORTABLE. BED IN LOW/LOCKED POSITION. SIDERAILS UPX2. CALL LIGHT IN REACH. ENDORSED TO NIGHT RN FOR ABDULLAHI.
[2019-08-22 22:55] VITALS: BP 122/72
--- NOTE | 2019-08-23 06:30 | NUR ---
RN CLOSING NOTES pt seen in bed with eyes closed. bed down locked sr x2 call light within reach.
[2019-08-23] MEDS: ALBUTEROL FS 2.5 MG/0.5 ML VIAL.NEB NEB SCH ×4 (07:35→15:42)
[2019-08-23] MEDS: IPRATROPIUM NEB FS 0.5 MG/2.5 ML AMPUL.NEB NEB SCH ×3 (07:35→10:49)
[2019-08-23] MEDS ORDERED: METH4TAB3 PO (08:27)
[2019-08-23] MEDS ORDERED: GUAI5SYR PO (08:27)
[2019-08-23] MEDS ORDERED: LEVO500T75 PO (08:27)
[2019-08-23] MEDS: SERTRALINE HCL 25 MG TABLET PO SCH (09:00)
[2019-08-23] MEDS: ENOXAPARIN SODIUM 30 MG/0.3 ML DISP.SYRIN SQ SCH (09:00)
[2019-08-23] MEDS: methylPREDNISolone SOD SUCC 40 MG/ML VIAL IV SCH (09:00)
[2019-08-23 09:31] VITALS: BP 130/70
[2019-08-23] MEDS: ASPIRIN 81 MG TAB.CHEW PO SCH (09:31)
[2019-08-23] MEDS: LISINOPRIL (20MG) 20 MG TABLET PO SCH (09:31)
[2019-08-23] MEDS: DIAZEPAM 5 MG TABLET PO SCH ×3 (09:31→16:56)
[2019-08-23] MEDS: CEPHALEXIN MONOHYDRATE 500 MG CAPSULE PO SCH ×3 (09:31→16:56)
[2019-08-23] MEDS: GUAIFENESIN/D-METHORPHAN HB 5 ML UDC PO PRN (11:04)
--- NOTE | 2019-08-23 17:16 | NUR ---
MS/RN OPENING NOTE Patient is resting in bed, A/O x4, showing no signs of acute distress or SOB, breathing is even and unlabored, saturating >95% on 2L NC. IV line in the RAC is clean and intact s/l. Patient has no complaints of pain at this time. Bed is in lowest position, side rails x2 in upright position call light is within reach and patient is aware of how to call for assistance when needed. Will continue with plan of care.
--- NOTE | 2019-08-23 17:46 | NUR ---
MS/SAUSAGE MACHINE OPERATOR NOTE Patient is medically stable for discharge. Patient is A/O x3, in no acute distress, no SOB noted, breathing is even and unlabored, saturating 95% on RA. Vital signs WNL. DC instructions provided, patient verbalizes understanding. Patient refuses skin assessment. Patient kept clean and dry throughout shift, all patient needs met, all due meds given. ID band removed, IV removed. MD is aware of discharge. [place] [facility] [place] Left the unit via ambulance en route to [facility]. Addendum: 08/23/19 at 1802 by RICKY MORALES RN Report given to Zach MCCANN at [facility].
== END 2019-08-23 17:10 | DRG 202 ==
LOC: ER 21:20 → TELE 08-21 00:07 → MED 08-21 09:24
PROVIDERS: ADMIT Nurse Practitioner Acute Care; ATTEND Registered Nurse
DX: J20.9 Acute bronchitis, unspecified (principal); N39.0 Urinary tract infection, site not specified; F41.9 Anxiety disorder, unspecified; M19.90 Unspecified osteoarthritis, unspecified site; M79.2 Neuralgia and neuritis, unspecified; I11.0 Hypertensive heart disease with heart failure; I50.9 Heart failure, unspecified; Z88.2 Allergy status to sulfonamides
CPT/HCPCS: 36415; 71045-TC; 80048-TC; 80061-TC; 80076-TC; 81000-TC; 83735-TC; 83880; 84100-TC; 84443-TC; 84484-TC; 85025-TC; 87081-TC; 87086-TC; 94799-TC; G0378; J1650; J2920; J2930

== ENCOUNTER 2020-04-18 11:38 | Inpatient (IN) | payer MEDICARE, OTHER ==
[~2020-04-18] VITALS: Ht 152.4 cm; Wt 66.7 kg
[~2020-04-18 11:38] MED LIST changes: +GUAI5SYR PO; +LEVO500T23 PO; +METH4TAB3 PO
--- NOTE | 2020-04-18 12:08 | NUR ---
BIBS FROM HOME. TO ER BED 7. AAOX4. NOT IN RESP DISTRESS. AMBULATORY. CAME WITH CONCERN OF HER BP AND REPORTING SBP NOTED 140s @ HOME. UPON TRIAGE PT IS NOTED WITH BP OF 143/84. PT IS NOTED VERY ANXIOUS. MD AT BEDSIDE FOR EVAL. ORDERS RECEIVED NOTED AND CARRIED OUT.
--- NOTE | 2020-04-18 12:39 | NUR ---
XRAY AT BEDSIDE. BLOOD DRAWN AND SENT TO LAB
--- NOTE | 2020-04-18 12:50 | NUR ---
COVID SWAB DONE AND SENT TO LAB
[2020-04-18 13:06] LABS: BASOPHILS % (AUTO) 0.4 % (0.0-2.0); EOSINOPHILS % (AUTO) 8.6 % (0.0-6.0); HEMATOCRIT 36 % (33-45); HEMOGLOBIN 11.6 g/dL (11.5-14.8); LYMPHOCYTES # (AUTO) 2.1 /CMM (0.8-4.8); LYMPHOCYTES % (AUTO) 27.4 % (20.0-44.0); MEAN CORPUSCULAR HGB CONC 33 g/dl (31.0-36.0); MEAN CORPUSCULAR VOLUME 100 fL (82-100); MONOCYTES # (AUTO) 0.5 /CMM (0.1-1.30); MONOCYTES % (AUTO) 6.7 % (2.0-12.0); NEUTROPHILS # (AUTO) 4.4 /CMM (1.8-8.9); NEUTROPHILS % (AUTO) 56.9 % (43.0-81.0); PLATELET COUNT (AUTO) 317 /CMM (150-450); RED BLOOD CELL COUNT(AUTO) 3.57 MIL/uL (4.0-5.2); WHITE BLOOD COUNT (AUTO) 7.7 K/uL (4.3-11.0)
[2020-04-18 13:17] LABS: CALCIUM, SERUM 8.9 mg/dL (8.5-10.1); CARBON DIOXIDE 27 mmol/L (21-32); CHLORIDE 105 mmol/L (98-107); CREATININE 0.9 mg/dL (0.6-1.3); GLUCOSE 103 mg/dL (74-106); SODIUM SERUM 140 mmol/L (136-145); UREA NITROGEN, BLOOD 19 mg/dL (7-18)
[2020-04-18] MEDS ORDERED: DICY10CA37 PO (13:33)
[2020-04-18] MEDS ORDERED: CHOL10002 PO (13:33)
[2020-04-18] MEDS ORDERED: HYDR25TA4 PO (13:33)
[2020-04-18] MEDS ORDERED: CYAN100096 PO (13:33)
[2020-04-18] MEDS ORDERED: MULT1TAB69 PO (13:33)
[2020-04-18] MEDS ORDERED: DIAZ5TAB4 PO (13:46)
--- NOTE | 2020-04-18 14:01 | NUR ---
IV LINE ESTABLISHED ON RAC 20G
--- NOTE | 2020-04-18 14:07 | NUR ---
GOT BED 314-2
--- NOTE | 2020-04-18 14:52 | NUR ---
REPORT GIVEN TO SIOBHAN SOMMER FOR ABDULLAHI.
--- NOTE | 2020-04-18 15:00 | NUR ---
PT TRANSPORT TO [facility] WITH EMT AT BEDSIDE. PT IS ON STABLE CONDITION FOR TRANSPORT. NAD NOTED
--- NOTE | 2020-04-18 15:45 | NUR ---
TELE/RN NOTE THE PATIENT IS RECEIVED FROM ER ON A GURNEY. PATIENT IS ALERT AND ORIENTED X4. DENIES PAIN. THE PATIENT IN ROOM AIR AND DENIES SOB. RESPIRATION REGULAR AND UNLABORED. RAC G 20 PATENT AND SALINE LOCKED. EXTERNAL TELE BOX READING IS SINUS TACHYCARDIA 118. BED LOW AND LOCKED. SIDE RAILS UP X2. CALL LIGHT WITHIN REACH. WILL ENDORSE TO NIGHTS SHIFT.
[2020-04-18 16:00] VITALS: BP 141/81
[2020-04-18 16:30] VITALS: BP 116/65
[2020-04-18 16:45] VITALS: BP 113/69
[2020-04-18 16:50] VITALS: BP 112/70
--- NOTE | 2020-04-18 17:02 | NUR ---
TELE/RN NOTE THE PATIENT BELIEVES THAT THAT SHE HAS ELEVATED BLOOD PRESSURE BECAUSE IT IS 5 PM AND SHE HAS NOT TAKEN HER SECOND DOSE OF LISINOPRIL 20 MG PO (HOME MED). CHECKED THE PATIENT`S BLOOD PRESSURE SEVERAL TIMES (INCLUDING MANUAL) AND NO ELEVATED BLOOD PRESSURE (SEE THE CHARTING). THE PATIENT IS MADE AWARE THAT THE MD WAS INFORMED ABOUT PLACING ADMITTING ORDER AND DOING MED RECON.
[2020-04-18] MEDS ORDERED: Z GUARD REMEDY 2 OZ OINT TP PRN (18:30)
[2020-04-18] MEDS ORDERED: MAG HYDROX/AL HYDROX/SIMETH 30 ML UDC PO PRN (18:30)
[2020-04-18] MEDS ORDERED: MAGNESIUM HYDROXIDE 30 ML UDC PO PRN (18:30)
[2020-04-18] MEDS ORDERED: ONDANSETRON HCL/PF 4 MG/2 ML VIAL IVP PRN (18:30)
[2020-04-18] MEDS ORDERED: ZOLPIDEM TARTRATE 5 MG TABLET PO PRN (18:30)
[2020-04-18] MEDS ORDERED: HYDROCODONE/APAP 5/325MG TABLET PO PRN (18:30)
[2020-04-18] MEDS: LISINOPRIL (20MG) 20 MG TABLET PO SCH (18:34)
--- NOTE | 2020-04-18 18:41 | NUR ---
TELE/RN NOTE RECEIVED AN ORDER FROM DR GABRIEL FOR MOTRIN 400 MG PO Q6HR FOR PAIN. PER PATIENT SHE TAKES IT AT HOME AND DOES NOT EXPERIENCE ANY ALLERGIC REACTIONS OR ADVERSE SIDE EFFECTS.
--- NOTE | 2020-04-18 18:52 | NUR ---
TELE/RN NOTE THE PATIENT IS ALERT AND ORIENTED X4. RECEIVING OXYGEN AT 2L/MIN VIA NASAL CANNULA AND OXYGEN SATURATION LEVEL IS AT 98%. DENIES SOB. RESPIRATION REGULAR AND UNLABORED. DENIES PAIN AT THIS TIME. RAC G 20 PATENT AND SALINE LOCKED. BED LOW AND LOCKED. SIDE RAILS UP X3. CALL LIGHT WITHIN REACH. WILL ENDORSE TO NIGHTS SHIFT.
[2020-04-18] MEDS: IBUPROFEN 400 MG TABLET PO PRN (19:05)
[2020-04-18 20:00] VITALS: BP 131/69
--- NOTE | 2020-04-18 20:03 | NUR ---
MS/TELE/RN RECEIVED PATIENT AWAKE, ALERT, ORIENTED, MILDLY ANXIOUS ABOUT BP AND OXYGEN SATURATION, REASSURED HER THAT BP IS 131/69 AND O2 SAT IS 97%, NO SIGNS OF DISTRESS NOTED, 2D ECHO IS IN PROGRESS. WILL MONITOR.
[2020-04-18] MEDS: ACETAMINOPHEN 325 MG TABLET PO PRN (22:15)
--- NOTE | 2020-04-18 22:50 | NUR ---
MS/TELE/RN PATIENT ASKED FOR HER HOME MED DIAZEPAM 5 MG, HOME MEDS NOT RECONCILED HET AT THIS TIME, DR. VOSS NOTIFIED AND RECONCILED HER HOME MEDS. PER EMR, DIAZEPAM WILL START TOMORROW, INFORMED THE PATIENT AND AGREED TO START TAKING IT TOMORROW.
[2020-04-19] VITALS: BP 124/70
--- NOTE | 2020-04-19 00:42 | NUR ---
MS/TELE/RN PATIENT IS SLEEPING AT THIS TIME, APPEAR COMFORTABLE, NO SIGNS OF DISTRESS NOTED, CALL LIGHT IN REACH, WILL CONTINUE TO MONITOR.
[2020-04-19 02:47] LABS: BASOPHILS # (AUTO) 0.1 /CMM (0.0-0.2); EOSINOPHILS % (AUTO) 8.8 % (0.0-6.0); HEMATOCRIT 32 % (33-45); HEMOGLOBIN 10.8 g/dL (11.5-14.8); LYMPHOCYTES # (AUTO) 2.8 /CMM (0.8-4.8); LYMPHOCYTES % (AUTO) 35.3 % (20.0-44.0); MEAN CORPUSCULAR HGB CONC 33 g/dl (31.0-36.0); MEAN CORPUSCULAR VOLUME 100 fL (82-100); MONOCYTES # (AUTO) 0.5 /CMM (0.1-1.30); MONOCYTES % (AUTO) 5.8 % (2.0-12.0); NEUTROPHILS # (AUTO) 3.8 /CMM (1.8-8.9); NEUTROPHILS % (AUTO) 49.1 % (43.0-81.0); PLATELET COUNT (AUTO) 286 /CMM (150-450); RED BLOOD CELL COUNT(AUTO) 3.25 MIL/uL (4.0-5.2); WHITE BLOOD COUNT (AUTO) 7.8 K/uL (4.3-11.0)
[2020-04-19 02:57] LABS: CALCIUM, SERUM 8.2 mg/dL (8.5-10.1); CARBON DIOXIDE 28 mmol/L (21-32); CHLORIDE 104 mmol/L (98-107); CREATININE 1.2 mg/dL (0.6-1.3); GLUCOSE 93 mg/dL (74-106); MAGNESIUM 2.1 mg/dL (1.8-2.4); POTASSIUM 3.9 mmol/L (3.5-5.1); SODIUM SERUM 138 mmol/L (136-145); UREA NITROGEN, BLOOD 22 mg/dL (7-18)
[2020-04-19 03:10] LABS: CHOLESTEROL 152 mg/dL (<200); HDL CHOLESTEROL 57 mg/dL (40-60); LDL 80 mg/dL (0-99); THYROID STIMULATING HORMONE 1.071 uIU/mL (0.358-3.74); TRIGLYCERIDES 80 mg/dL (30-150)
[2020-04-19 04:00] VITALS: BP 125/71
--- NOTE | 2020-04-19 06:09 | NUR ---
MS/TELE/RN PATIENT IS STILL SLEEPING AT THIS TIME, APPEAR COMFORTABLE, NO SIGNS OF DISTRESS NOTED, CALL LIGHT IN REACH. ALL NEEDS ATTENDED AT THIS TIME, WILL CONTINUE TO MONITOR.
--- NOTE | 2020-04-19 07:48 | NUR ---
MEDICAL STAFF DIRECTOR OPENING NOTES PATIENT IS SLEEPING IN BED WITH NO SIGNS OF DISTRESS AND NO SOB ON 2L OF NASAL CANNULA. SINUS RHYTHM. IV R AC #20G SL. NO COMPLAIN OF PAIN AT THIS MOMENT. SAFETY MEASURES ARE APPLIED, BED IS IN LOCKED AND IN LOW POSITION. SIDE RAILS UP X 2. CALL LIGHT WITHIN REACH. WILL CONTINUE TO MONITOR.
[2020-04-19 08:00] VITALS: BP 113/60
[2020-04-19] MEDS: ASPIRIN 81 MG TAB.CHEW PO SCH (08:33)
[2020-04-19] MEDS: DIAZEPAM 5 MG TABLET PO SCH ×4 (08:34→21:34)
[2020-04-19] MEDS: LISINOPRIL (20MG) 20 MG TABLET PO SCH ×2 (08:43→16:24)
--- NOTE | 2020-04-19 08:44 | NUR ---
HELD BP MEDS THIS MORNING BP 113/60 HR 60 WILL CONTINUE TO MONITOR.
[2020-04-19] MEDS ORDERED: HYDROCHLOROTHIAZIDE 25 MG TABLET PO SCH (09:00)
[2020-04-19] MEDS: IBUPROFEN 400 MG TABLET PO PRN ×2 (09:50→18:41)
[2020-04-19] MEDS: VALSARTAN 80 MG TABLET PO SCH (10:00)
--- NOTE | 2020-04-19 10:55 | NUR ---
PATIENT REFUSED BP MEDICATION VALSARTAN BP LEFT ARM 107/60 HR 82. SHE MADE ME RECHECK BP MANUALLY ON HER R ARM BP 110/62. TOLD HER ABOUT THE RISKS AND BENEFITS OF REFUSING MEDICATION. SHE STILL REFUSED BP MEDICATION. WILL CONTINUE TO MONITOR.
--- NOTE | 2020-04-19 12:00 | NUR ---
PATIENT STATING TO FEEL FATIGUE CHECKED VITALS BP 110/62 AND SPO2 97% IN ROOM AIR. WILL CONTINUE TO MONITOR.
[2020-04-19] MEDS: ACETAMINOPHEN 325 MG TABLET PO PRN (14:34)
--- NOTE | 2020-04-19 14:56 | NUR ---
INFORMED DR. MEZA PATIENT LDL 80 AND VTE SCORE BEING 4. HE SAID CONTINUE WITH ASPIRIN AND DVT PUMPS OK. NOTED AND CARRIED ON.
[2020-04-19 16:00] VITALS: BP 143/65
--- NOTE | 2020-04-19 19:29 | NUR ---
MS RN OPENING NOTES PATIENT IS A/O X 3 NO SIGNS OF DISTRESS AND NO SOB IN ROOM AIR. NO COMPLAIN OF PAIN AT THIS MOMENT. IV R AC #20G INTACT. PATIENT REMAINED STABLE THROUGH OUT SHIFT. PATIENT KEPT CLEAN AND DRY. ALL NEEDS, CARE, TREATMENT AND MEDICATIONS ADMINISTERED ANTICIPATED PER ORDER. SAFETY MEASURES ARE APPLIED BED IS IN LOW POSITION AND LOCKED, SIDE RAILS UP X 2. CALL LIGHT WITHIN REACH. WILL ENDORSE TO THE NEXT EXPRESSIVE ART THERAPIST NURSE.
[2020-04-19 20:00] VITALS: BP 129/79
--- NOTE | 2020-04-19 20:00 | NUR ---
MS RN NOTE: Patient in bed sleeping comfortably. Patient is on Oxygen 2L nasal canula. Patient is tolerating oxygen. Patient is breathing well, unlabored, and even, No SOB, or respiratory distress. Noted IV access on right AC, 20 gauge, intact and dry, flushes well, patent, no redness, or infiltration. Safety precaution in place, bed is in the lowest level, brakes are on, alarm is on, side rails x2 are up, and call light is within reach. Will continue to monitor.
[2020-04-20] MEDS: IBUPROFEN 400 MG TABLET PO PRN ×2 (03:08→20:34)
--- NOTE | 2020-04-20 03:09 | NUR ---
MS RN NOTE: Patient complains of pain on the back of her neck. Administered PRN Ibuprofen per MD order. Will continue to monitor.
--- NOTE | 2020-04-20 06:31 | NUR ---
MS RN CLOSING NOTE: Patient in bed sleeping comfortably. Patient is on 2L oxygen via nasal canula. Patient is breathing well, breathing uneven and labored. No SOB or respiratory distress noted. Safety precaution is in place, bed is in the lowest level, bed is locked, side rails x2 are up, and call light is within reach. Will continue to monitor.
--- NOTE | 2020-04-20 07:57 | NUR ---
MS/RN OPENING NOTES RECEIVED PATIENT SLEEPING ON BED, EASILY AROUSABLE BY NAME. NO APPARENT RESPIRATORY DISTRESS NOTED. DENIES PAIN AT THIS TIME. WILL CONTINUE TO MONITOR.
[2020-04-20 08:00] VITALS: BP 140/71
[2020-04-20] MEDS: VALSARTAN 80 MG TABLET PO SCH (09:00)
[2020-04-20] MEDS: DIAZEPAM 5 MG TABLET PO SCH ×4 (09:25→21:33)
[2020-04-20] MEDS: LISINOPRIL (20MG) 20 MG TABLET PO SCH ×2 (09:25→16:23)
[2020-04-20] MEDS: ASPIRIN 81 MG TAB.CHEW PO SCH (09:25)
[2020-04-20] MEDS ORDERED: ASPIRIN/ACETAMINOPHEN/CAFFEINE 1 EACH TABLET PO ONE (15:00)
[2020-04-20 16:00] VITALS: BP 134/92
--- NOTE | 2020-04-20 16:15 | NUR ---
This SW provided patient with information regarding In-Home Support Services directly from https://www.cdss.[place].gov/ka-jjfx-stgilwxhnl-services.
--- NOTE | 2020-04-20 19:24 | NUR ---
MS/RN CLOSING NOTES PATIENT IS ON BEB. PATIENT DENIES PAIN AT THIS TIME. PATIENT IN NO APPARENT RESPIRATORY DISTRESS NOTED. IN ROOM AIR. IV ACCESS AT RIGHT AC # 20G PATENT AND INTACT. SEEN AND EXAMINED BY MD WITH ORDERS MADE AND CARRIED OUT. ALL DUE MEDICATION WAS GIVEN. SAFETY PRECAUTION IN PLACED. BED IN LOWEST POSITION AND LOCKED. SIDERAILS UP X2. CALL LIGHT WITH IN REACH. PATIENT IS FOR DISCHARGED TOMORROW. WILL ENDORSED TO SERVICE DELIVERY MANAGER FOR ABDULLAHI.
--- NOTE | 2020-04-20 19:35 | NUR ---
SAMEERA AWAKE, WAS ON PHONE WITH DAUGHTER. PROVIDED PRIVACY, TO CONTINUE,
[2020-04-20 20:00] VITALS: BP 151/72
--- NOTE | 2020-04-20 20:35 | NUR ---
MSRN VERBALIZES SEVERE HEADACHE, MOTRIN 400 MG PO ADMINISTERED.SNACKS PROVIDED. ALL NEEDS ATTENDED. 02 2L NEEDED. NO SOB OF THIS TIME. SAFETY PRECAUTIONS EMPHASIZED, REMINDED TO CALL STAFF FOR ANY FURTHER DISCOMFORTS. CALL LIGHT WITHIN REACH
[2020-04-21] MEDS: ACETAMINOPHEN 325 MG TABLET PO PRN (01:28)
[2020-04-21 01:35] VITALS: BP 130/76
--- NOTE | 2020-04-21 01:36 | NUR ---
MSRN AWAKE THIS TIME. VERBALIZES FRONTAL HEADACHE. OFFERED TYLENOL PO AGREED. BP 130/76. WANTED TO HAVE MRI IN AM. WILL ENDORSE PATIENTS CONCERNS REGARDING CONSTANT MONTEJO.
--- NOTE | 2020-04-21 07:38 | NUR ---
MS RN NOTES PATIENT RECEIVED IN BED AWAKE, ALERT AND ORIENTED X 4. ON ROOM AIR WITH NO SIGNS OF RESPIRATORY DISTRESS PRESENT AT THIS TIME, WITH EVEN NON-LABORED BREATHING, AND NO SOB NOTED. SKIN WARM AND DRY TO TOUCH. IV ACCESS INTACT AND PATENT. PATIENT COMPLAINING OF HEADACHE AND REQUESTING MRI. PROVIDED COMFORT MEASURES TO PATIENT. SAFETY PRECAUTIONS IMPLEMENTED WITH BED LOCKED, BED IN THE LOWEST POSITION, BED ALARM ON, BILATERAL SIDE RAILS UP, AND CALL LIGHT WITHIN EASY REACH OF THE PATIENT. WILL CONTINUE TO MONITOR PATIENT.
[2020-04-21 08:00] VITALS: BP 131/76
[2020-04-21] MEDS: ASPIRIN 81 MG TAB.CHEW PO SCH (08:48)
[2020-04-21] MEDS: DIAZEPAM 5 MG TABLET PO SCH (08:49)
[2020-04-21 08:50] VITALS: BP 140/73
[2020-04-21] MEDS: VALSARTAN 80 MG TABLET PO SCH (08:50)
[2020-04-21] MEDS: LISINOPRIL (20MG) 20 MG TABLET PO SCH (08:50)
--- NOTE | 2020-04-21 09:45 | NUR ---
MS RN NOTES CALLED [facility] FOR REPORT, SPOKE WITH SIOBHAN BAUGH . PATIENT ROOM 36A.
--- NOTE | 2020-04-21 09:55 | NUR ---
MS RN NOTES CALLED DAUGHTER KEITH , TO INFORM ABOUT PATIENT'S DISCHARGE. NO ANSWER, LEFT VOICEMAIL TO CALLBACK.
[2020-04-21] MEDS: IBUPROFEN 400 MG TABLET PO PRN (10:10)
--- NOTE | 2020-04-21 10:10 | NUR ---
MS RN NOTES PATIENT COMPLAINING OF HEADACHE, PATIENT REQUESTING PAIN MEDICATION. ADMINISTERED PRN MOTRIN 400mg ORDERED WILL CONTINUE TO MONITOR PATIENT.
--- NOTE | 2020-04-21 11:08 | NUR ---
LADIES SUIT OPERATOR NOTES: PATIENT LEFT UNIT ALERT AND ORIENTED X 4. ON ROOM AIR WITH NO SIGNS OF RESPIRATORY DISTRESS WITH NON-LABORED EVEN BREATHING. VITAL SIGNS STABLE. PATIENT SKIN KEPT CLEAN WARM AND DRY TO TOUCH. IV ACCESS REMOVED, CATHETER TIP INTACT AND APPLIED PRESSURE TO SITE. REMOVED ID BAND. PATIENT ACCOUNTED FOR ALL BELONGINGS. PROVIDED EDUCATION TO PATIENT AND EXIT CARE PACKET PROVIDED. PATIENT REFUSED PNEUMONIA VACCINE AND INFLUENZA VACCINE, STATED "I WILL RECEIVE IT SOMEWHERE ELSE."EDUCATED PROVIDED AND RISKS AND BENEFITS INFORMED TO PATIENT. PATIENT LEFT UNIT VIA GUNNERY WITH EMT.
== END 2020-04-21 11:05 | DRG 305 ==
LOC: ER 11:46 → TELE 14:11 → MED 04-19 11:15
PROVIDERS: ADMIT Student in an Organized Health Care Education/Training Program; ATTEND Hospitalist
DX: I16.0 Hypertensive urgency (principal); J98.11 Atelectasis; I11.0 Hypertensive heart disease with heart failure; I50.9 Heart failure, unspecified; F41.9 Anxiety disorder, unspecified; E55.9 Vitamin D deficiency, unspecified; Z88.5 Allergy status to narcotic agent; Z88.2 Allergy status to sulfonamides; Z88.8 Allergy status to other drugs, medicaments and biological substances; Z91.041 Radiographic dye allergy status; Z79.82 Long term (current) use of aspirin; Z79.899 Other long term (current) drug therapy; M79.2 Neuralgia and neuritis, unspecified; M19.90 Unspecified osteoarthritis, unspecified site; Z90.49 Acquired absence of other specified parts of digestive tract; Z98.890 Other specified postprocedural states; R73.03 Prediabetes; I70.0 Atherosclerosis of aorta; Z86.79 Personal history of other diseases of the circulatory system
CPT/HCPCS: 36415; 71045-TC; 80048-TC; 80061-TC; 83735-TC; 84100-TC; 84443-TC; 84484-TC; 85025-TC; 87081-TC; 93307-TC; 97116-TC; 97530-TC; C9803-CS; G0378

== ENCOUNTER 2022-01-20 23:55 | Inpatient (IN) | payer MEDICARE, OTHER ==
[~2022-01-20] VITALS: Ht 165.1 cm; Wt 63.5 kg
[~2022-01-20 23:55] MED LIST changes: -ACET-2605 PO; -ACET-868 PO; -BISA10SU11 RC; +CHOL100043 PO; +CYAN100096 PO; -GUAI5SYR PO; +HYDR25TA4 PO; -IBUP-1953 PO; -LEVO500T23 PO; -LISI-603 PO; +LISI20TA30 PO; -LORA10TA68 PO; -MAGN400O6 PO; -METH4TAB3 PO; +MULT1TAB70 PO; -NA P133E RC; -SERT25TA PO; -SODI45SP10 BNOSTRILS
[2022-01-21] MEDS ORDERED: DIAZEPAM 5 MG TABLET ONE (00:55)
[2022-01-21] MEDS ORDERED: IV NS 0.9% 1,000 ML BAG IV ONE (01:00)
[2022-01-21] MEDS ORDERED: DIAZEPAM 5 MG TABLET PO ONE (01:00)
--- NOTE | 2022-01-21 01:15 | NUR ---
BIBRA FROM SNF FOR DIARRHEA X 1 DAY AND CHRONIC ANXIETY. PT A/O X 4, RR EVEN AND UNLABORED, NO ACUTE DISTRESS NOTED. CONNECTED TO MONITORS
--- NOTE | 2022-01-21 01:24 | NUR ---
blood work sent to lab
--- NOTE | 2022-01-21 01:24 | NUR ---
rad at bedside
[2022-01-21 01:28] LABS: BASOPHILS % (AUTO) 0.2 % (0.0-2.0); EOSINOPHILS % (AUTO) 4.5 % (0.0-6.0); HEMATOCRIT 36 % (33-45); LYMPHOCYTES % (AUTO) 13.9 % (20.0-44.0); MEAN CORPUSCULAR HGB CONC 34 g/dl (31.0-36.0); MEAN CORPUSCULAR VOLUME 96 fL (82-100); MONOCYTES # (AUTO) 0.8 K/uL (0.1-1.30); MONOCYTES % (AUTO) 10.9 % (2.0-12.0); NEUTROPHILS % (AUTO) 70.5 % (43.0-81.0); PLATELET COUNT (AUTO) 346 K/uL (150-450); RED BLOOD CELL COUNT(AUTO) 3.71 MIL/uL (4.0-5.2)
[2022-01-21 02:15] LABS: CALCIUM, SERUM 8.9 mg/dL (8.5-10.1); CARBON DIOXIDE 24 mmol/L (21-32); CHLORIDE 98 mmol/L (98-107); GLUCOSE 143 mg/dL (74-106); SODIUM SERUM 134 mmol/L (136-145); UREA NITROGEN, BLOOD 26 mg/dL (7-18)
[2022-01-21 02:46] LABS: ALANINE AMINOTRANSFERASE 21 U/L (12-78); ALBUMIN 3.3 g/dL (3.4-5.0); ALKALINE PHOSPHATASE 57 U/L (46-116); ASPARTATE AMINOTRANSFERASE 14 U/L (15-37); BILIRUBIN,TOTAL 0.2 mg/dL (0.2-1.0); TOTAL PROTEIN, SERUM 6.9 g/dL (6.4-8.2)
[2022-01-21] MEDS ORDERED: ENOXAPARIN SODIUM 60 MG/0.6 ML DISP.SYRIN SQ ONE ×2 (03:20→03:30)
--- NOTE | 2022-01-21 03:32 | NUR ---
ximena odonnell collected
[2022-01-21] MEDS ORDERED: MAGNESIUM HYDROXIDE 30 ML UDC PO PRN (05:00)
[2022-01-21] MEDS ORDERED: IV NS 0.9% 1,000 ML IV ONE (05:00)
[2022-01-21] MEDS ORDERED: ONDANSETRON HCL/PF 4 MG/2 ML VIAL IVP PRN (05:00)
[2022-01-21] MEDS ORDERED: ACETAMINOPHEN 325 MG TABLET PO PRN (05:00)
[2022-01-21] MEDS ORDERED: Z GUARD REMEDY 4 OZ OINT TP PRN (05:00)
[2022-01-21 05:59] LABS: MAGNESIUM 1.8 mg/dL (1.8-2.4); PHOSPHORUS 2.7 mg/dL (2.5-4.9)
[2022-01-21] MEDS ORDERED: ACET-868 PO (07:14)
[2022-01-21] MEDS ORDERED: MAG30ORA PO (07:14)
[2022-01-21] MEDS ORDERED: HYDR-4076 PO (07:14)
[2022-01-21] MEDS ORDERED: POLY15DR40 EACHEYE (07:14)
[2022-01-21] MEDS ORDERED: IBUP-1953 PO (07:14)
[2022-01-21] MEDS ORDERED: LATA2.5D15 EACHEYE (07:14)
[2022-01-21] MEDS ORDERED: BENZ1LOZ58 MM (07:14)
[2022-01-21] MEDS ORDERED: ALBU8.5H8 IH (07:14)
[2022-01-21] MEDS ORDERED: ACET-2605 PO ×2 (07:14)
[2022-01-21] MEDS ORDERED: DOCU-141 PO (07:14)
[2022-01-21] MEDS ORDERED: FAMO20TA8 PO (07:14)
--- NOTE | 2022-01-21 07:36 | NUR ---
REPORT GIVEN TO KAYLEE FOR ABDULLAHI
--- NOTE | 2022-01-21 08:00 | NUR ---
ADMISSION NOTE Received patient via gurney from ER. Report given by SIOBHAN Keen. Patient is A/O x 3, able to make needs known. On O2 at 2 LPM via NC, breathing evenly and unlabored. Patient uses O2 PRN only. No SOB or s/s of distress noted. IV access on LAC #20 SL, intact and patent. Patient oriented to room and how to use the call light. VS taken: BP 114/66; HR 88; RR 18; Temp 98.6; SPO2 94%. Skin assessment done, c/d/i. Lungs clear. Abdomen non-tender. Patient denies any pain or discomfort at this time, also states that she has not had diarrhea recently. Safety precautions in place: bed in low, locked position; siderails up x 2; call light within reach. Will continue to monitor. Addendum: 01/21/22 at 1756 by MARIELLE SOSA RN ADD: On tele monitoring showing SR, HR 84.
--- NOTE | 2022-01-21 08:02 | NUR ---
PT TRANSFERRED TO UNIT AT ROOM 309-2 VIA FRANSISCO JAMA PROTOCOL; BEDSIDE ENDORSEMENT GIVEN TO SIOBHAN PAGE.
--- NOTE | 2022-01-21 09:18 | NUR ---
RN NOTE Patient requested if she could take her medications at 1000. Will return at 1000 to give AM medications.
[2022-01-21] MEDS: MULTIVITAMINS,THERAGRAN 1 UDTAB TABLET PO SCH (10:06)
[2022-01-21] MEDS: ASPIRIN 81 MG TAB.CHEW PO SCH (10:06)
[2022-01-21] MEDS: DIAZEPAM 5 MG TABLET PO SCH ×4 (10:06→21:03)
[2022-01-21] MEDS: HYDROCHLOROTHIAZIDE 25 MG TABLET PO SCH (10:07)
[2022-01-21] MEDS: LISINOPRIL (20MG) 20 MG TABLET PO SCH ×2 (10:07→17:15)
[2022-01-21] MEDS: CHOLECALCIFEROL 1,000 UNIT TABLET (VIT D3) PO SCH (10:07)
[2022-01-21] MEDS: CYANOCOBALAMIN 500 MCG TABLET PO SCH (10:08)
[2022-01-21 13:26] VITALS: BP 114/66
[2022-01-21] MEDS: ENOXAPARIN SODIUM 60 MG/0.6 ML DISP.SYRIN SQ SCH ×3 (13:41→21:07)
[2022-01-21] MEDS: MAG HYDROX/AL HYDROX/SIMETH 30 ML UDC PO PRN ×2 (13:42→21:47)
--- NOTE | 2022-01-21 13:42 | NUR ---
RN NOTE Patient complained of feeling fullness in the stomach. Requested if she can take something to relieve the pressure. PRN Maalox given. Will continue to monitor.
[2022-01-21 16:45] VITALS: BP 113/70
[2022-01-21 17:18] LABS: BILIRUBIN,URINE NEGATIVE (NEGATIVE); COLOR,URINE YELLOW (YELLOW); LEUKOCYTE ESTERASE ,URINE NEGATIVE (NEGATIVE); NITRITE, URINE NEGATIVE (NEGATIVE); PH,URINE 5.5 (5.0-8.0); PROTEIN,URINE NEGATIVE (NEGATIVE); UGLUCOSE NEGATIVE (NEGATIVE); UROBILINOGEN,URINE 0.2 EU/dL (0.2)
[2022-01-21 17:29] LABS: BACTERIA,URINE None seen /HPF (None Seen); MUCUS,URINE Few /LPF (None Seen); SQUAMOUS EPITHELIAL CELL,UR 0-2 /HPF (None Seen); WBC,URINE 0-2 /HPF (0-3)
--- NOTE | 2022-01-21 17:45 | NUR ---
RN NOTE Patient brought to radiology for VQ scan.
--- NOTE | 2022-01-21 19:12 | NUR ---
CROSSING FLAGMAN CLOSING NOTE Patient brought back to room 309. Patient is A/O x 4, able to make needs known. On room air, but uses O2 at 2LPM via NC PRN. IV access on LAC #20 SL intact and patent. On tele monitoring showing SR, HR 99. All needs attended to. due meds given. Safety precautions maintained: bed in low, locked position; siderails up x 2; call light within reach. Will endorse to night baker nurse for ABDULLAHI.
--- NOTE | 2022-01-21 19:22 | NUR ---
NM: LUNG V/Q WAS COMPLETED:TECH:RB
--- NOTE | 2022-01-21 19:25 | NUR ---
LEGAL AIDE OPENING NOTES RECEIVED PATIENT IN BED; AWAKE, ALERT AND ORIENTED X3. ON O2 INHALATION @ 2LPM VIA NASAL CANNULA; TOLERATING WELL. BREATHING IS EVEN AND NONLABORED. NOT IN ANY FORM OF RESPIRATORY DISTRESS. ON TELEMETRY MONITORING WITH CURRENT READING OF SR HR 98 BPM. WITH IV ACCESS ON LEFT ANTECUBITAL G#20; INTACT AND SALINE LOCKED. ABLE TO MAKE NEEDS KNOWN. SAFETY MEASURES IMPLEMENTED: CALL LIGHT AND TABLE WITHIN EASY REACH, SIDE RAILS UP X2, BED IN LOWEST LOCKED POSITION. WILL CONTINUE TO MONITOR
[2022-01-21 20:00] VITALS: BP 110/57
[2022-01-21] MEDS ORDERED: ZOLPIDEM TARTRATE 5 MG TABLET PO PRN (22:00)
[2022-01-22] VITALS: BP 119/78
[2022-01-22 00:15] VITALS: BP 119/78
[2022-01-22 06:16] LABS: BASOPHILS % (AUTO) 0.2 % (0.0-2.0); EOSINOPHILS % (AUTO) 4.3 % (0.0-6.0); HEMATOCRIT 34 % (33-45); HEMOGLOBIN 11.5 g/dL (11.5-14.8); LYMPHOCYTES # (AUTO) 1.5 K/uL (0.8-4.8); LYMPHOCYTES % (AUTO) 24.2 % (20.0-44.0); MEAN CORPUSCULAR HGB CONC 34 g/dl (31.0-36.0); MEAN CORPUSCULAR VOLUME 96 fL (82-100); MONOCYTES # (AUTO) 0.7 K/uL (0.1-1.30); MONOCYTES % (AUTO) 11.3 % (2.0-12.0); NEUTROPHILS # (AUTO) 3.7 K/uL (1.8-8.9); PLATELET COUNT (AUTO) 377 K/uL (150-450); RED BLOOD CELL COUNT(AUTO) 3.53 MIL/uL (4.0-5.2); WHITE BLOOD COUNT (AUTO) 6.2 K/uL (4.3-11.0)
[2022-01-22 06:57] LABS: CALCIUM, SERUM 8.3 mg/dL (8.5-10.1); CARBON DIOXIDE 28 mmol/L (21-32); CHLORIDE 99 mmol/L (98-107); CREATININE 1.1 mg/dL (0.6-1.3); GLUCOSE 146 mg/dL (74-106); POTASSIUM 3.8 mmol/L (3.5-5.1); SODIUM SERUM 137 mmol/L (136-145); UREA NITROGEN, BLOOD 23 mg/dL (7-18)
--- NOTE | 2022-01-22 07:05 | NUR ---
RESIDENTIAL SALES REPRESENTATIVE CLOSING NOTES PATIENT IS IN BED; AWAKE, ALERT AND ORIENTED X3. ON O2 INHALATION @ 2LPM VIA NASAL CANNULA; TOLERATING WELL. BREATHING EVENLY AND NONLABORED. NOT IN ANY FORM OF RESPIRATORY DISTRESS. ON TELEMETRY MONITORING WITH CURRENT READING OF SR HR 105 BPM. WITH IV ACCESS ON LEFT ANTECUBITAL G#20; INTACT AND SALINE LOCKED. NEEDS ATTENDED. SAFETY MEASURES IN PLACE. ENDORSED TO MORNING SHIFT FOR CONTINUITY OF CARE.
[2022-01-22 08:00] VITALS: BP 108/65
[2022-01-22] MEDS: ENOXAPARIN SODIUM 60 MG/0.6 ML DISP.SYRIN SQ SCH (10:00)
[2022-01-22] MEDS: DIAZEPAM 5 MG TABLET PO SCH (10:13)
[2022-01-22] MEDS: CYANOCOBALAMIN 500 MCG TABLET PO SCH (10:13)
[2022-01-22] MEDS: MULTIVITAMINS,THERAGRAN 1 UDTAB TABLET PO SCH (10:13)
[2022-01-22] MEDS: CHOLECALCIFEROL 1,000 UNIT TABLET (VIT D3) PO SCH (10:13)
[2022-01-22] MEDS: ASPIRIN 81 MG TAB.CHEW PO SCH (10:13)
[2022-01-22] MEDS: HYDROCHLOROTHIAZIDE 25 MG TABLET PO SCH (10:34)
[2022-01-22] MEDS: LISINOPRIL (20MG) 20 MG TABLET PO SCH ×2 (10:34→17:00)
--- NOTE | 2022-01-22 12:05 | NUR ---
ANALYTICAL CHEMISTRY TEACHER NOTE RECEIVED A CALL FROM RADIOLOGIST DR. HAMPTON, SAID THAT PATIENT WITH SMALL BOWEL OBTRUCTION. DR. HANNA NOTIFIED. PATIENT KEPT NPO FOR NOW.
[2022-01-22] MEDS ORDERED: FLUMAZENIL 0.5 MG VIAL IV PRN (14:00)
[2022-01-22 16:00] VITALS: BP 94/66
[2022-01-22] MEDS ORDERED: DIAZEPAM 5 MG/ML 2 ML DISP.SYRIN IV SCH (17:00)
[2022-01-22] MEDS ORDERED: DIAZEPAM 5 MG TABLET PO SCH (17:30)
[2022-01-22] MEDS: IV D5/ 0.9% NACL 1,000 ML IV PRN (18:02)
[2022-01-22] MEDS: DIAZEPAM 5 MG/ML 2 ML DISP.SYRIN IV SCH ×2 (18:31→21:04)
--- NOTE | 2022-01-22 19:15 | NUR ---
SET OFF PRESS OPERATOR CLOSING NOTES PATIENT RESTING IN BED COMFORTABLY; A/OX3, PATIENT ABLE TO MAKE NEEDS KNOWN; BREATHING EVEN AND UNLABORED; ON 2LPM VIA NC, TOLERATING WELL; NO SOB NOTED; PATIENT DENIES PAIN; NO DISTRESS NOTED; TELE MONITOR READS SINUS RHYTHM; PATIENT HAS LAC 20G, INTACT AND PATENT, FLUSHING WELL. PATIENT WITH NGT PRESENT FOR DECOMPRESSION HOOKED TO LOW PRESSURE SUCTIONING. FOR POSSIBLE SMALL BOWEL FOLLOW THROUGH TO [facility] AND REFERRED TO DR. BALLESTEROS FOR SURGERY CONSULT. SAFETY PRECAUTIONS IMPLEMENTED; BED LOCKED IN LOW POSITION; SIDE RAILX2, CALL LIGHT WITHIN REACH; WILL ENDORSE TO NEXT SHIFT FOR CONTINUITY OF CARE.
--- NOTE | 2022-01-22 19:25 | NUR ---
CLERK RATING OPENING NOTES RECEIVED PATIENT RESTING IN BED COMFORTABLY; A/OX3, PATIENT ABLE TO MAKE NEEDS KNOWN; BREATHING EVEN AND UNLABORED; ON 2LPM VIA NC, TOLERATING WELL; NO SOB NOTED; PATIENT DENIES PAIN; NO DISTRESS NOTED; TELE MONITOR READS SINUS RHYTHM; PATIENT HAS LAC 20G, INTACT AND PATENT, FLUSHING WELL; NGT PRESENT FOR DECOMPRESSION; PER AM SHIFT, PATIENT IS TO BE KEPT NPO; PATIENT AWARE; SAFETY PRECAUTIONS IMPLEMENTED; BED LOCKED IN LOW POSITION; SIDE RAILX2, CALL LIGHT WITHIN REACH; WILL CONT PLAN OF CARE
[2022-01-22 20:00] VITALS: BP 111/66
--- NOTE | 2022-01-22 20:19 | NUR ---
FACILITY MAINTENANCE WORKER NOTES PATIENT ARGUMENTATIVE, DOES NOT WANT US TO TAKE BLOOD PRESSURE WITH MACHINE; WHEN ASKED FOR REASON, PATIENT STATED, "BECAUSE I KNOW, BECAUSE SOME PEOPLE KNOW MORE THAN OTHERS THATS WHY'. PATIENT WAS EDUCATED ON IMPORTANCE OF CHECKING BLOOD PRESSURE THROUGHOUT HOSPITALIZATION; PATIENT STATED, OKAY JUST "BRING THE STUPID MACHINE". CHARGE NURSE AWARE
[2022-01-23] VITALS (7 sets, daily range): BP systolic 105–119; BP diastolic 57–68
[2022-01-23 06:43] LABS: BASOPHILS % (AUTO) 0.2 % (0.0-2.0); HEMATOCRIT 29 % (33-45); HEMOGLOBIN 9.5 g/dL (11.5-14.8); LYMPHOCYTES # (AUTO) 2.5 K/uL (0.8-4.8); LYMPHOCYTES % (AUTO) 40.2 % (20.0-44.0); MEAN CORPUSCULAR HGB CONC 34 g/dl (31.0-36.0); MEAN CORPUSCULAR VOLUME 96 fL (82-100); MONOCYTES # (AUTO) 0.5 K/uL (0.1-1.30); MONOCYTES % (AUTO) 8.7 % (2.0-12.0); NEUTROPHILS # (AUTO) 2.7 K/uL (1.8-8.9); NEUTROPHILS % (AUTO) 43.9 % (43.0-81.0); PLATELET COUNT (AUTO) 312 K/uL (150-450); RED BLOOD CELL COUNT(AUTO) 2.98 MIL/uL (4.0-5.2); WHITE BLOOD COUNT (AUTO) 6.3 K/uL (4.3-11.0)
[2022-01-23 07:06] LABS: CALCIUM, SERUM 8.2 mg/dL (8.5-10.1); CARBON DIOXIDE 32 mmol/L (21-32); CHLORIDE 104 mmol/L (98-107); CREATININE 0.9 mg/dL (0.6-1.3); GLUCOSE 87 mg/dL (74-106); POTASSIUM 3.5 mmol/L (3.5-5.1); SODIUM SERUM 139 mmol/L (136-145); UREA NITROGEN, BLOOD 21 mg/dL (7-18)
--- NOTE | 2022-01-23 07:38 | NUR ---
WINDOW GLAZIER CLOSING NOTES PATIENT RESTING IN BED COMFORTABLY; A/OX3, PATIENT ABLE TO MAKE NEEDS KNOWN; BREATHING EVEN AND UNLABORED; ON 2LPM VIA NC, TOLERATING WELL; NO SOB NOTED; PATIENT DENIES PAIN; NO DISTRESS NOTED; TELE MONITOR READS SINUS RHYTHM; PATIENT HAS LAC 20G, INTACT AND PATENT, FLUSHING WELL; NGT PRESENT FOR DECOMPRESSION, PATIENT KEPT NPO; PATIENT AWARE; ALL NEEDS RENDERED, SAFETY PRECAUTIONS IMPLEMENTED; BED LOCKED IN LOW POSITION; SIDE RAILX2, CALL LIGHT WITHIN REACH; WILL ENDORSE ABDULLAHI TO ONCOMING SHIFT
[2022-01-23] MEDS: ASPIRIN 81 MG TAB.CHEW PO SCH (08:07)
[2022-01-23] MEDS: HYDROCHLOROTHIAZIDE 25 MG TABLET PO SCH (08:07)
[2022-01-23] MEDS: CYANOCOBALAMIN 500 MCG TABLET PO SCH (08:08)
[2022-01-23] MEDS: MULTIVITAMINS,THERAGRAN 1 UDTAB TABLET PO SCH (08:08)
[2022-01-23] MEDS: CHOLECALCIFEROL 1,000 UNIT TABLET (VIT D3) PO SCH (08:08)
[2022-01-23] MEDS: LISINOPRIL (20MG) 20 MG TABLET PO SCH ×2 (08:08→16:31)
[2022-01-23] MEDS: ENOXAPARIN SODIUM 60 MG/0.6 ML DISP.SYRIN SQ SCH (09:00)
[2022-01-23] MEDS: DIAZEPAM 5 MG/ML 2 ML DISP.SYRIN IV SCH ×4 (09:03→20:34)
[2022-01-23] MEDS ORDERED: DIATR MEGLU/DIATRIZOATE SODIUM 120 ML BOTTLE (GASTROGRAPHIN) ONE (10:37)
[2022-01-23] MEDS ORDERED: DIATR MEGLU/DIATRIZOATE SODIUM 30 ML BOTTLE (GASTROGRAPHIN) ONE (10:37)
--- NOTE | 2022-01-23 18:06 | NUR ---
SHIFT SUMMARY VSS, AFEBRILE, A/O X4. ON 02 AT 2 LPM VIA NC FOR SUPPORT. IV ACCESS ON L AC #20 G, D5NS RUNNING AT 75 ML/HR, INTACT AND PATENT. PATIENT REMAINS NPO. BM X1. SR 80S ON THE TELE MONITOR. SAFETY MEASURES MAINTAINED. BED IN LOWEST POSITION, BRAKES LOCKED. SIDE RAILS UP X2. CALL LIGHT WITHIN REACH. WILL ENDORSE CONTINUITY OF CARE TO ONCOMING SHIFT.
--- NOTE | 2022-01-23 19:29 | NUR ---
PITCH WORKER OPENING NOTES RECEIVED PT LYING IN BED WITH EYES CLOSED. EASY TO AROUSE. A/O X4. HAS O2 AT 2 LPM VIA NC FOR SUPPORT. NO C/O PAIN OR DISCOMFORT AT THIS TIME. ON TELE MONITOR READING SINUS RHYTHM AT 83 BPM. HAS LEFT ANTECUBITAL IV ACCESS #20G WITH D5NS RUNNING AT 75 ML/HR. NO S/S OF INFILTRATION NOTED. HAS NG-TUBE AND REMAINS NPO. SAFETY PRECAUTIONS IN PLACE. WILL CONTINUE PLAN OF CARE.
--- NOTE | 2022-01-23 22:00 | NUR ---
HOSPITAL CARRIER NOTES PT C/O PAIN ON HER NOSE. NG-TUBE PULLED OUT. PT REFUSED RE-INSERTION. EXPLAINED RISKS AND BENEFITS, STILL REFUSED. STILL AWAITING FOR SMALL BOWEL FOLLOW THRU RESULT.
--- NOTE | 2022-01-24 01:30 | NUR ---
RESIDENTIAL PROGRAM MANAGER NOTES NOTIFIED KEITH RODRIGUEZ THAT PT IS REQUESTING TO HAVE SOMETHING TO DRINK OR EAT. ORDERED TO WAIT FOR SBFT RESULT AND JUST GIVE ICE CHIPS.
[2022-01-24 04:32] VITALS: BP 136/72
[2022-01-24 06:35] LABS: BASOPHILS % (AUTO) 0.1 % (0.0-2.0); HEMATOCRIT 28 % (33-45); HEMOGLOBIN 9.6 g/dL (11.5-14.8); LYMPHOCYTES # (AUTO) 1.9 K/uL (0.8-4.8); LYMPHOCYTES % (AUTO) 23.2 % (20.0-44.0); MEAN CORPUSCULAR HGB CONC 34 g/dl (31.0-36.0); MEAN CORPUSCULAR VOLUME 97 fL (82-100); MONOCYTES # (AUTO) 0.7 K/uL (0.1-1.30); MONOCYTES % (AUTO) 8.3 % (2.0-12.0); NEUTROPHILS # (AUTO) 5.2 K/uL (1.8-8.9); NEUTROPHILS % (AUTO) 65.4 % (43.0-81.0); PLATELET COUNT (AUTO) 343 K/uL (150-450); RED BLOOD CELL COUNT(AUTO) 2.94 MIL/uL (4.0-5.2)
--- NOTE | 2022-01-24 06:45 | NUR ---
HEAD MACHINE FEEDER CLOSING NOTES PT SITTING ON BEDSIDE COMMODE. A/O X4. BREATHING EVEN AND NON-LABORED ON ROOM AIR. PRN O2 AT 2 LPM VIA NC FOR SUPPORT. DENIES PAIN AT THIS TIME. AFEBRILE. ON TELE MONITOR READING SINUS RHYTHM AT 76 BPM. HAS LEFT ANTECUBITAL IV ACCESS #20G WITH D5NS RUNNING AT 75 ML/HR. INTACT, PATENT AND FLUSHING. PT KEPT BENDING HER ARM CAUSING BLOCKAGE AND FREQUENT IV PUMP ALARM. PT EDUCATION GIVEN. ALL NEEDS ATTENDED AND ANTICIPATED. SAFETY PRECAUTIONS IN PLACE: BED LOW AND LOCKED, SIDE RAILS UP X2, CALL LIGHT WITHIN REACH.
[2022-01-24 07:00] LABS: CALCIUM, SERUM 8.7 mg/dL (8.5-10.1); CARBON DIOXIDE 29 mmol/L (21-32); CHLORIDE 108 mmol/L (98-107); CREATININE 0.8 mg/dL (0.6-1.3); GLUCOSE 93 mg/dL (74-106); MAGNESIUM 2.5 mg/dL (1.8-2.4); PHOSPHORUS 3.6 mg/dL (2.5-4.9); POTASSIUM 3.8 mmol/L (3.5-5.1); SODIUM SERUM 145 mmol/L (136-145); UREA NITROGEN, BLOOD 18 mg/dL (7-18)
--- NOTE | 2022-01-24 07:47 | NUR ---
CONCRETE SCULPTOR OPENING NOTES: RECEIVED PATIENT IN BED ASLEEP BUT EASILY AWAKE BY STIMULI. ALERT AND ORIENTED X 3 AND ABLE TO VERBALIZED NEEDS. NO SOB OR CARDIAC DISTRESS,ON 02 INHALATION @1LPM VIA NC FOR COMFORT. DENIES PAIN AT THIS TIME. ON TELE MONITOR READING SINUS RHYTHM AT 81 BPM. HAS LEFT ANTECUBITAL IV ACCESS #20G WITH D5NS RUNNING AT 75 ML/HR. INTACT, PATENT AND FLUSHING. PT EDUCATION GIVEN. ALL NEEDS ATTENDED AND ANTICIPATED. SAFETY PRECAUTIONS MAINTAINED: BED IN LOWEST AND LOCKED POSITION, SIDE RAILS UP X2, CALL LIGHT WITHIN REACH. WILL MONITOR FOR ANY SIGNIFICANT CHANGES.
[2022-01-24 08:00] VITALS: BP 130/61
[2022-01-24] MEDS: DIAZEPAM 5 MG/ML 2 ML DISP.SYRIN IV SCH (08:56)
[2022-01-24] MEDS: CHOLECALCIFEROL 1,000 UNIT TABLET (VIT D3) PO SCH (08:56)
[2022-01-24] MEDS: CYANOCOBALAMIN 500 MCG TABLET PO SCH (08:56)
[2022-01-24] MEDS: MULTIVITAMINS,THERAGRAN 1 UDTAB TABLET PO SCH (08:56)
[2022-01-24] MEDS: HYDROCHLOROTHIAZIDE 25 MG TABLET PO SCH (09:00)
[2022-01-24] MEDS: LISINOPRIL (20MG) 20 MG TABLET PO SCH ×2 (09:00→17:36)
[2022-01-24] MEDS ORDERED: ENOXAPARIN SODIUM 40 MG/0.4 ML DISP.SYRIN SQ SCH (09:00)
[2022-01-24] MEDS: ASPIRIN 81 MG TAB.CHEW PO SCH (09:14)
--- NOTE | 2022-01-24 09:17 | NUR ---
RN NOTES: PATIENT REFUSED TO TAKE HER BP MEDS AND BLOOD THINNER , EXPLAINED THE RISK AND BENEFITS OF NOT TAKING HER BP MEDS AND BLOOD THINNER AND VERBALIZED UNDERSTANDING.
--- NOTE | 2022-01-24 10:49 | NUR ---
SIOBHAN NOTES: INSERTED IV PERIPHERAL ACCESS ON LEFT HAND GAUGE 20, PATENT AND INTACT. Addendum: 01/24/22 at 1432 by RAULITO LAMB RN ERROR
[2022-01-24 12:00] VITALS: BP_SYST 116; BP_SYST 138; BP_DIAS 64; BP_DIAS 67
[2022-01-24] MEDS: IV D5/ 0.9% NACL 1,000 ML IV PRN (12:44)
[2022-01-24] MEDS: DIAZEPAM 5 MG TABLET PO SCH ×2 (13:16→17:34)
--- NOTE | 2022-01-24 14:32 | NUR ---
RN NOTES: INSERTED IV PERIPHERAL LINE ON LEFT HAND G#22 PATENT AND INTACT.
[2022-01-24 16:10] VITALS: BP 116/64
[2022-01-24 17:36] VITALS: BP 132/72
--- NOTE | 2022-01-24 19:30 | NUR ---
OUTREACH COUNSELOR NOTES: DISCHARGED PATIENT TO [facility], ACCOMPANIED BY 2 PARAMEDICS VIA [facility]. PATIENT ALERT AND ORIENTED X 4 AND ABLE TO VERBALIZED NEEDS. NO SOB OR CARDIAC DISTRESS. ABDOMEN SLIGHTLY DISTENDED. NO EDEMA NOTED ON EXTREMITIES. REMOVED IV ACCESS, SECURED WITH TAPE AND GAUZE.DISCHARGE INSTRUCTIONS GIVEN TO PATIENT AND GAVE REPORT TO RN SHAJI. ENDORSED TO PARAMEDICS AND GAVE HOSPITAL DC PAPERS. DISCHARGE PACKET AND BELONGING LISTS SIGNED. PATIENT LEFT UNIT/ HOSPITAL STABLE . WITH IDENTIFICATION BAND ON.
--- NOTE | 2022-01-24 19:42 | NUR ---
PACKING AND FINAL ASSEMBLY SUPERVISOR NOTES: DISCHARGED PATIENT TO [facility], ACCOMPANIED BY 2 PARAMEDICS VIA [facility]. PATIENT ALERT AND ORIENTED X 4 AND ABLE TO VERBALIZED NEEDS. NO SOB OR CARDIAC DISTRESS. ABDOMEN SLIGHTLY DISTENDED. NO EDEMA NOTED ON EXTREMITIES. REMOVED IV ACCESS, SECURED WITH TAPE AND GAUZE.DISCHARGE INSTRUCTIONS GIVEN TO PATIENT AND GAVE REPORT TO RN SHAJI. ENDORSED TO PARAMEDICS AND GAVE HOSPITAL DC PAPERS. DISCHARGE PACKET AND BELONGING LISTS SIGNED. PATIENT LEFT UNIT/ HOSPITAL STABLE . WITH IDENTIFICATION BAND ON.
== END 2022-01-24 20:02 | DRG 389 ==
LOC: ER 01-21 00:04 → TELE 01-21 07:04
PROVIDERS: ADMIT Nurse Practitioner Acute Care; ATTEND Student in an Organized Health Care Education/Training Program
DX: K56.609 Unspecified intestinal obstruction, unspecified as to partial versus complete obstruction (principal); E87.1 Hypo-osmolality and hyponatremia; M19.90 Unspecified osteoarthritis, unspecified site; I11.0 Hypertensive heart disease with heart failure; I50.9 Heart failure, unspecified; E86.0 Dehydration; Z20.822 Contact with and (suspected) exposure to COVID-19; E55.9 Vitamin D deficiency, unspecified; Z88.5 Allergy status to narcotic agent; Z88.2 Allergy status to sulfonamides; Z88.8 Allergy status to other drugs, medicaments and biological substances; Z91.041 Radiographic dye allergy status; Z79.82 Long term (current) use of aspirin; Z79.899 Other long term (current) drug therapy; R19.7 Diarrhea, unspecified; R79.89 Other specified abnormal findings of blood chemistry; M79.2 Neuralgia and neuritis, unspecified; F41.9 Anxiety disorder, unspecified; E66.9 Obesity, unspecified; Z90.49 Acquired absence of other specified parts of digestive tract; Z91.19 Patient's noncompliance with other medical treatment and regimen; G47.33 Obstructive sleep apnea (adult) (pediatric); K57.90 Diverticulosis of intestine, part unspecified, without perforation or abscess without bleeding; K76.0 Fatty (change of) liver, not elsewhere classified; Z98.891 History of uterine scar from previous surgery
CPT/HCPCS: 36415; 71045-TC; 74018; 74250-TC; 78582; 80048-TC; 80076-TC; 81001; 83735-TC; 83880; 84100-TC; 84484-TC; 85025-TC; 85378-TC; 87045-TC; 87081-TC; 93970-TC; 94799-TC; A9540; A9567; C9803; G0378; J1650; J3360; J3490; J7030; J7042; Q9963

== ENCOUNTER 2022-04-13 16:03 | Inpatient (IN) | payer MEDICARE, OTHER ==
[~2022-04-13] VITALS: Ht 149.9 cm; Wt 68.5 kg
[~2022-04-13 16:03] MED LIST changes: +ACET-2605 PO; +ACET-868 PO; +ALBU8.5H8 IH; +BENZ1LOZ58 MM; +DOCU-141 PO; +FAMO20TA8 PO; +HYDR-4076 PO; +IBUP-1953 PO; +LATA2.5D15 EACHEYE; +MAG30ORA PO; +POLY15DR40 EACHEYE
--- NOTE | 2022-04-13 16:10 | NUR ---
EMERALD FROM [facility] FOR RECURRENT HEADACHE WORST SINCE 1400, HEADACHE ON AND OFF X 2 WEEKS NO RELIEF FROM TYLENOL AND IBUPROFEN. TO ER BED 2, HOOKED TO MONITOR, CHANGED TO HOSP GOWN, WARM BLANKET PROVIDED. APTIENT AAOx4. BREATHING EVEN AND UNLABORED. EQUAL STRENGTH BLE BUE. AWAITING MD SORIANO.
--- NOTE | 2022-04-13 16:20 | NUR ---
DR BALDERAS AT BEDSIDE
[2022-04-13] MEDS ORDERED: diphenhydrAMINE HCL 50 MG/ML VIAL IV ONE (16:30)
--- NOTE | 2022-04-13 16:36 | NUR ---
UNABLE TO PROVIDE URINE SAMPLE. MADE AWARE
[2022-04-13] MEDS ORDERED: diphenhydrAMINE HCL 50 MG/ML VIAL ONE (16:39)
--- NOTE | 2022-04-13 16:43 | NUR ---
KITCHEN STEWARDESS AT BEDSIDE
--- NOTE | 2022-04-13 16:50 | NUR ---
RAPID COVID SWAB DONE AND SENT TO LAB
--- NOTE | 2022-04-13 16:55 | NUR ---
MOVE SHEET SUBMITTED.
[2022-04-13] MEDS ORDERED: NEPA3DRO EACHEYE (16:59)
[2022-04-13] MEDS ORDERED: IV NS 0.9% 500 ML BAG IV ONE (17:00)
--- NOTE | 2022-04-13 17:02 | NUR ---
PHARMACEUTICAL SERVICE REPRESENTATIVE AT BEDSIDE
[2022-04-13 17:10] LABS: BASOPHILS # (AUTO) 0.1 K/uL (0.0-0.2); BASOPHILS % (AUTO) 1.2 % (0.0-2.0); HEMATOCRIT 31 % (33-45); HEMOGLOBIN 10.2 g/dL (11.5-14.8); LYMPHOCYTES # (AUTO) 2.4 K/uL (0.8-4.8); LYMPHOCYTES % (AUTO) 29.6 % (20.0-44.0); MEAN CORPUSCULAR HGB CONC 33 g/dl (31.0-36.0); MEAN CORPUSCULAR VOLUME 97 fL (82-100); MONOCYTES # (AUTO) 0.5 K/uL (0.1-1.30); MONOCYTES % (AUTO) 6.3 % (2.0-12.0); NEUTROPHILS # (AUTO) 4.5 K/uL (1.8-8.9); NEUTROPHILS % (AUTO) 53.9 % (43.0-81.0); PLATELET COUNT (AUTO) 301 K/uL (150-450); WHITE BLOOD COUNT (AUTO) 8.3 K/uL (4.3-11.0)
[2022-04-13] MEDS ORDERED: ONDANSETRON HCL/PF 4 MG/2 ML VIAL IVP PRN (17:30)
[2022-04-13] MEDS ORDERED: MAG HYDROX/AL HYDROX/SIMETH 30 ML UDC PO PRN ×2 (17:30)
[2022-04-13] MEDS ORDERED: ENOXAPARIN SODIUM 40 MG/0.4 ML DISP.SYRIN SQ SCH (17:30)
[2022-04-13] MEDS ORDERED: MORPHINE SULFATE INJ 2 MG/ML DISP.SYRIN IV PRN (17:30)
[2022-04-13] MEDS ORDERED: Z GUARD REMEDY 4 OZ OINT TP PRN (17:30)
[2022-04-13] MEDS ORDERED: NITROGLYCERIN 0.4 MG/TAB BOTTLE SL ONE (17:30)
[2022-04-13 17:43] LABS: CALCIUM, SERUM 9.3 mg/dL (8.5-10.1); CARBON DIOXIDE 29 mmol/L (21-32); CHLORIDE 100 mmol/L (98-107); CREATININE 1.2 mg/dL (0.6-1.3); GLUCOSE 106 mg/dL (74-106); POTASSIUM 3.9 mmol/L (3.5-5.1); SODIUM SERUM 136 mmol/L (136-145); UREA NITROGEN, BLOOD 29 mg/dL (7-18)
[2022-04-13] MEDS ORDERED: ENOXAPARIN SODIUM 40 MG/0.4 ML DISP.SYRIN SQ ONE (18:00)
[2022-04-13] MEDS ORDERED: NITROGLYCERIN 0.4 MG/TAB BOTTLE ONE (18:01)
--- NOTE | 2022-04-13 18:14 | NUR ---
BRIE ADRIAN AT BEDSIDE
[2022-04-13 18:43] LABS: ALANINE AMINOTRANSFERASE 24 U/L (12-78); ALBUMIN 3.4 g/dL (3.4-5.0); ALKALINE PHOSPHATASE 59 U/L (46-116); ASPARTATE AMINOTRANSFERASE 13 U/L (15-37); BILIRUBIN,TOTAL 0.1 mg/dL (0.2-1.0)
--- NOTE | 2022-04-13 19:20 | NUR ---
PATIENT REFUSED CTA BRAIN, MADE DAVID OLIVEIRA NP AWARE
--- NOTE | 2022-04-13 19:34 | NUR ---
ENDORSEMENT GIVEN TO SANDI MCCANN FOR CONTINUITY OF CARE
[2022-04-13] MEDS ORDERED: NITROGLYCERIN 0.4 MG/TAB BOTTLE SL PRN (20:28)
[2022-04-13] MEDS: ENOXAPARIN SODIUM 30 MG/0.3 ML DISP.SYRIN SQ SCH (21:00)
[2022-04-13] MEDS ORDERED: DIAZEPAM 5 MG TABLET ONE (21:45)
[2022-04-13] MEDS ORDERED: ENOXAPARIN SODIUM 30 MG/0.3 ML DISP.SYRIN ONE (21:46)
[2022-04-13] MEDS: DIAZEPAM 5 MG TABLET PO SCH (21:50)
--- NOTE | 2022-04-13 21:51 | NUR ---
REPORT GIVEN TO ALFRED 3W FOR ABDULLAHI
--- NOTE | 2022-04-13 21:59 | NUR ---
PT TRANSPORTED TO ROOM 312-1 ON CARDIAC PER ACLS IN STABLE CONDITION.
[2022-04-13] MEDS: LATANOPROST EYE DROP 0.005% 2.5 ML BOTTLE EACHEYE SCH ×2 (22:00→23:05)
[2022-04-13] MEDS ORDERED: ZOLPIDEM TARTRATE 5 MG TABLET PO PRN (22:00)
[2022-04-13] MEDS ORDERED: MAGNESIUM HYDROXIDE 30 ML UDC PO PRN (22:00)
[2022-04-13 23:00] VITALS: BP 123/74
--- NOTE | 2022-04-13 23:00 | NUR ---
THREAD ROLLERPRESCHOOL TEACHER'S ASSISTANT NOTES RECEIVED FROM ER THIS 81 YO FEMALE,PER [place],A/O X3-4,BREATHING REGULAR, NOT I ANY FORM OF DISTRESS,CHIEF COMPLAINTS OF HEADACHE ON AND OFF X 2 WEEKS, DX,CHEST PAIN POSSIBLE ACS AND INTRACTABLE HEADACHE.O2 SAT 95% ON ROOM AIR,PATIENT REQUESTING TO HAVE OXYGEN AT LEAST 2L/NC.WITH SALINE LOCK LEFT AC INTACT AND PATENT.NO SKIN ISSUES,AMBULATE WITH ASSIST.FALL RISK,BED ON LOWEST POSITION AND LOCKED,BED ALARM TRIGGERED,CALL LIGHT IN REACH,NEEDS ANTICIPATED.
[2022-04-13] MEDS ORDERED: LATANOPROST EYE DROP 0.005% 2.5 ML BOTTLE ONE (23:01)
[2022-04-14] VITALS (7 sets, daily range): BP systolic 102–130; BP diastolic 54–69
[2022-04-14 06:28] LABS: BASOPHILS # (AUTO) 0.1 K/uL (0.0-0.2); BASOPHILS % (AUTO) 1.2 % (0.0-2.0); EOSINOPHILS % (AUTO) 11.5 % (0.0-6.0); HEMATOCRIT 30 % (33-45); HEMOGLOBIN 9.8 g/dL (11.5-14.8); LYMPHOCYTES # (AUTO) 2.5 K/uL (0.8-4.8); LYMPHOCYTES % (AUTO) 35.5 % (20.0-44.0); MEAN CORPUSCULAR HGB CONC 33 g/dl (31.0-36.0); MEAN CORPUSCULAR VOLUME 98 fL (82-100); MONOCYTES # (AUTO) 0.6 K/uL (0.1-1.30); MONOCYTES % (AUTO) 8.1 % (2.0-12.0); NEUTROPHILS % (AUTO) 43.7 % (43.0-81.0); PLATELET COUNT (AUTO) 286 K/uL (150-450); RED BLOOD CELL COUNT(AUTO) 3.03 MIL/uL (4.0-5.2); WHITE BLOOD COUNT (AUTO) 6.9 K/uL (4.3-11.0)
--- NOTE | 2022-04-14 06:58 | NUR ---
MERCHANDISE HANDLER NOTES SB-59 ON TELE MONITOR,WITH PERIODS OF ANXIETY REGARDING HER BLOOD PRESSURE READING.REQUESTING CEPACOL THIS MORNING FOR SORE THROAT.O2 SAT WITH IN NORMAL LIMITS.CALL LIGHT IN REACH,NEEDS ATTENDED.
[2022-04-14 07:06] LABS: THYROID STIMULATING HORMONE 2.339 uIU/mL (0.358-3.74)
--- NOTE | 2022-04-14 07:10 | NUR ---
RN OPENING NOTE RECEIVED PT IN BED ASLEEP. NO SIGNS OF RESPIRATORY DISTRESS OR SOB AT THIS TIME. RESTING COMFORTABLY. TELE MONITOR READING SB AT 59. IV IN LAC 20G INTACT AND PATENT. SAFETY CHECKS IN PLACE: BED LOCKED IN LOWEST POSITION, CALL LIGHT WITHIN REACH, SIDE RAILS X2. WILL CONTINUE TO MONITOR.
[2022-04-14 07:17] LABS: CALCIUM, SERUM 8.7 mg/dL (8.5-10.1); CREATININE 0.9 mg/dL (0.6-1.3); MAGNESIUM 2.1 mg/dL (1.8-2.4); PHOSPHORUS 3.8 mg/dL (2.5-4.9); POTASSIUM 4.1 mmol/L (3.5-5.1)
[2022-04-14] MEDS: HYDROCHLOROTHIAZIDE 25 MG TABLET PO SCH (09:00)
[2022-04-14] MEDS: PANTOPRAZOLE 40 MG VIAL IV SCH (09:00)
[2022-04-14] MEDS: LISINOPRIL (20MG) 20 MG TABLET PO SCH ×2 (09:00→17:00)
[2022-04-14] MEDS: ATORVASTATIN 10 MG TABLET PO SCH (09:00)
[2022-04-14] MEDS: DOCUSATE SODIUM 100 MG CAPSULE PO SCH ×2 (09:41→17:28)
[2022-04-14] MEDS: IBUPROFEN 400 MG TABLET PO PRN ×2 (09:41→20:38)
[2022-04-14] MEDS: ASPIRIN 81 MG TAB.CHEW PO SCH (09:41)
[2022-04-14] MEDS: DIAZEPAM 5 MG TABLET PO SCH ×4 (09:41→22:20)
[2022-04-14] MEDS: FOLIC ACID 1 MG TABLET PO SCH (13:39)
[2022-04-14] MEDS: ACETAMINOPHEN 325 MG TABLET PO PRN (13:46)
--- NOTE | 2022-04-14 18:57 | NUR ---
RN CLOSING NOTE PT IN BED AWAKE, A/OX4. RESTING COMFORTABLY. NO C/O OF PAIN AT THIS TIME. NO RESPIRATORY DISTRESS OR SOB NOTED. ON NC 2L AT 96%. TELE MONITOR READING SR 60. IV LAC 20G INTACT AND PATENT. ALL NEEDS MET, ALL SCHEDULED MEDS GIVEN. SAFETY CHECKS IN PLACE: BED LOCKED, BED IN LOWEST POSITION, CALL LIGHT WITHIN REACH. WILL ENDORSE TO RESIDENTIAL MANAGER FOR ABDULLAHI.
--- NOTE | 2022-04-14 20:15 | NUR ---
DIRECTOR STRATEGY NOTES SR-63 ON TELE MONITOR.ON BED A/O X3,COMMENTED SHE'S HAVING HEADACHE SINCE 4PM, NOBODY CHECK ON HER.LISTENING PATIENTLY ON PATIENT CONCERN,SHE CALM DOWN,NICKI QURESHI CHECKED HER VITAL SIGNS AND ITS WITH IN NORMAL LIMITS.WILL MEDICATE.CALL LIGHT IN REACH,NEEDS ANTICIPATED.
--- NOTE | 2022-04-14 20:38 | NUR ---
PETROLEUM BLENDING PLANT OPERATOR NOTES C/O HEADACHE,IBUPROFEN 400MG PO GIVEN ORDERED.
[2022-04-14] MEDS: ENOXAPARIN SODIUM 30 MG/0.3 ML DISP.SYRIN SQ SCH (21:00)
[2022-04-15] VITALS: BP 136/80
[2022-04-15] MEDS: ACETAMINOPHEN 325 MG TABLET PO PRN ×2 (00:07→13:48)
[2022-04-15 04:00] VITALS: BP 126/73
[2022-04-15 06:26] LABS: BASOPHILS # (AUTO) 0.1 K/uL (0.0-0.2); BASOPHILS % (AUTO) 1.2 % (0.0-2.0); EOSINOPHILS % (AUTO) 11.1 % (0.0-6.0); HEMATOCRIT 30 % (33-45); HEMOGLOBIN 9.8 g/dL (11.5-14.8); LYMPHOCYTES # (AUTO) 2.9 K/uL (0.8-4.8); MEAN CORPUSCULAR HGB CONC 33 g/dl (31.0-36.0); MEAN CORPUSCULAR VOLUME 98 fL (82-100); MONOCYTES # (AUTO) 0.5 K/uL (0.1-1.30); MONOCYTES % (AUTO) 6.1 % (2.0-12.0); NEUTROPHILS # (AUTO) 3.6 K/uL (1.8-8.9); NEUTROPHILS % (AUTO) 45.6 % (43.0-81.0); PLATELET COUNT (AUTO) 283 K/uL (150-450); RED BLOOD CELL COUNT(AUTO) 3.05 MIL/uL (4.0-5.2); WHITE BLOOD COUNT (AUTO) 7.9 K/uL (4.3-11.0)
[2022-04-15 06:40] LABS: CALCIUM, SERUM 8.7 mg/dL (8.5-10.1); CREATININE 1.1 mg/dL (0.6-1.3); POTASSIUM 4.4 mmol/L (3.5-5.1)
--- NOTE | 2022-04-15 06:54 | NUR ---
MOTOR SETTER NOTES FAIRLY RESTED AT NIGHT,STILL WITH ON AND OFF HEADACHE,VERY NEEDY,NO DISTRESS.
--- NOTE | 2022-04-15 07:30 | NUR ---
SMOOTH AND BURR WORKER COMPOSITES OPENING NOTES: PATIENT IN BED AWAKE, ALERT AND ORIENTED X 4 AND ABLE TO VERBALIZED NEEDS. NO SOB OR CARDIAC DISTRESS NOTED ON O2 INHALATION @ 2LPM VIA NC AND TOLERATED WELL. DENIES PAIN AT THIS TIME. ON LIVE SOURCE OPERATOR WITH CURRENT READING OF SR @67BPM. IV ACCESS LAC G#20 PATENT AND INTACT AND SALINE LOCKED. KEPT RESTED AND COMFORTABLE. SAFETY PRECAUTIONS MAINTAINED: BED LOCKED AND IN LOWEST POSITION, SIDE RAILS UP X 2. CALL LIGHT IN EASY REACH FOR HELP. WILL MONITOR PT ACCORDINGLY.
[2022-04-15 08:00] VITALS: BP 116/72
[2022-04-15] MEDS: DIAZEPAM 5 MG TABLET PO SCH ×4 (08:27→21:20)
[2022-04-15] MEDS: DOCUSATE SODIUM 100 MG CAPSULE PO SCH ×2 (08:27→17:52)
[2022-04-15] MEDS: ASPIRIN 81 MG TAB.CHEW PO SCH (08:27)
[2022-04-15] MEDS: PANTOPRAZOLE 40 MG VIAL IV SCH (08:27)
[2022-04-15] MEDS: CHOLECALCIFEROL 1,000 UNIT TABLET (VIT D3) PO SCH (08:28)
[2022-04-15] MEDS: MULTIVITAMINS,THERAGRAN 1 UDTAB TABLET PO SCH (08:28)
[2022-04-15] MEDS: FOLIC ACID 1 MG TABLET PO SCH (08:28)
[2022-04-15] MEDS: ATORVASTATIN 10 MG TABLET PO SCH (08:29)
[2022-04-15] MEDS: HYDROCHLOROTHIAZIDE 25 MG TABLET PO SCH (08:35)
[2022-04-15] MEDS: LISINOPRIL (20MG) 20 MG TABLET PO SCH ×3 (08:36→18:08)
[2022-04-15] MEDS: IBUPROFEN 400 MG TABLET PO PRN (09:35)
[2022-04-15 12:00] VITALS: BP 126/70
--- NOTE | 2022-04-15 14:00 | NUR ---
RN NOTES: PATIENT WANTED TO CHECKED HER BP USING MANUAL BP [place]. PATIENT IS ANXIOUS THAT HER BP WILL SHOOT UP, BUT EARLY AM PT REFUSED BP MEDS BECAUSE PT AFRAID TO HAVE VERY LOW BP. AFTERNOON CDL SERVICE TECHNICIAN RECHECKED BP 145/75, 1300 SCHEDULED DIAZEPAM GIVEN AND BP WENT DOWN TO 120S. I EXPLAINED TO HER BP IS NORMALLY FLUCTUATING BUT IT WILL BE CONCERNING AND REPORTABLE TO MD IF ITS CRITICALLY LOW OR CRITICALLY HIGH.
--- NOTE | 2022-04-15 14:20 | NUR ---
STIPPLER NOTES: DC PATIENT HOME WITH . PATIENT ALERT AND ORIENTED X 4 AND ABLE TO VERBALIZED NEEDS. PATIENT DENIES ANY PAIN AT THIS TIME, NO SOB OR CARDIAC DISTRESS NOTED. DISCHARGE PACKET GIVEN TO PATIENT AND AT BED SIDE. VERBALIZED UNDERSTANDING. FOLLOW UP WITH PCP IN A WEEK AND IN CASE OF EMERGENCY CALL 911 OR GO TO NEAREST HOSPITAL. ALL BELONGINGS CARRIED WITH THE RESIDENT AND SIGNED THE FORM. ROLL FORMING SUPERVISOR GIVEN TO US FACUNDO. IV ACCESS REMOVED AND IDENTIFICATION BAND REMOVED. NICKI HENDERSONED HUMBERTO IN THE LOBBY. PATIENT LEFT THE UNIT STABLE. Addendum: 04/15/22 at 1457 by RAULITO LAMB RN ERROR DISREGARD Addendum: 04/15/22 at 1838 by RAULITO LAMB RN ERROR DISREGARD
[2022-04-15 16:00] VITALS: BP 129/79
--- NOTE | 2022-04-15 18:37 | NUR ---
MS RN CLOSING NOTES: PATIENT IN BED AWAKE, ALERT AND ORIENTED X 4 AND ABLE TO VERBALIZED NEEDS. NO SOB OR CARDIAC DISTRESS NOTED ON O2 INHALATION @ 2LPM VIA NC AND TOLERATED WELL (ON AND OFF). DENIES PAIN AT THIS TIME. IV ACCESS LAC G#20 PATENT AND INTACT AND SALINE LOCKED. KEPT RESTED AND COMFORTABLE. SAFETY PRECAUTIONS MAINTAINED: BED LOCKED AND IN LOWEST POSITION, SIDE RAILS UP X 2. CALL LIGHT IN EASY REACH FOR HELP. WILL MONITOR PT ACCORDINGLY.ENDORSED TO NOC SHIFT FOR ABDULLAHI.
--- NOTE | 2022-04-15 19:30 | NUR ---
MS RN OPENING NOTES RECEIVED PATIENT IN BED; AWAKE, ALERT AND ORIENTED X 4. BREATHING EVEN AND NONLABORED. ON O2 INHALATION @ 2 LPM VIA NASAL CANNULA; TOLERATING WELL. NOT IN ANY FORM OF RESPIRATORY DISTRESS. DENIES ANY PAIN OR DISCOMFORT AT THIS TIME. WITH IV ACCESS ON LEFT ANTECUBITAL 20g; PATENT, INTACT AND SALINE LOCKED. NO INFILTRATION NOTED. ABLE TO MAKE NEEDS KNOWN. SAFETY PRECAUTIONS IMPLEMENTED: CALL LIGHT AND TABLE WITHIN EASY REACH, SIDE RAILS UP X 2, BED IN LOWEST LOCKED POSITION. WILL CONTINUE PLAN OF CARE.
[2022-04-15 20:00] VITALS: BP 112/78
[2022-04-15] MEDS: ENOXAPARIN SODIUM 30 MG/0.3 ML DISP.SYRIN SQ SCH (21:00)
[2022-04-15] MEDS: LATANOPROST EYE DROP 0.005% 2.5 ML BOTTLE EACHEYE SCH (22:00)
[2022-04-16] MEDS: IBUPROFEN 400 MG TABLET PO PRN ×2 (00:18→15:45)
[2022-04-16 07:02] LABS: BASOPHILS # (AUTO) 0.1 K/uL (0.0-0.2); BASOPHILS % (AUTO) 1.1 % (0.0-2.0); EOSINOPHILS % (AUTO) 11.5 % (0.0-6.0); HEMATOCRIT 30 % (33-45); HEMOGLOBIN 9.8 g/dL (11.5-14.8); LYMPHOCYTES # (AUTO) 2.6 K/uL (0.8-4.8); LYMPHOCYTES % (AUTO) 33.5 % (20.0-44.0); MEAN CORPUSCULAR HGB CONC 33 g/dl (31.0-36.0); MEAN CORPUSCULAR VOLUME 98 fL (82-100); MONOCYTES # (AUTO) 0.4 K/uL (0.1-1.30); MONOCYTES % (AUTO) 5.6 % (2.0-12.0); NEUTROPHILS # (AUTO) 3.7 K/uL (1.8-8.9); NEUTROPHILS % (AUTO) 48.3 % (43.0-81.0); PLATELET COUNT (AUTO) 279 K/uL (150-450); RED BLOOD CELL COUNT(AUTO) 3.04 MIL/uL (4.0-5.2); WHITE BLOOD COUNT (AUTO) 7.7 K/uL (4.3-11.0)
--- NOTE | 2022-04-16 07:10 | NUR ---
MS RN CLOSING NOTES PATIENT IN BED; AWAKE, A/O X 4. RESPIRATION EVEN AND NONLABORED. ON O2 INHALATION @ 2 LPM VIA NC; WELL TOLERATED. IN NO APPARENT DISTRESS. NO C/O PAIN OR DISCOMFORT AT THIS TIME. IV ACCESS ON LEFT ANTECUBITAL 20g; PATENT, INTACT AND SALINE LOCKED. NO INFILTRATION NOTED. ALL NEEDS MET. SAFETY PRECAUTIONS MAINTAINED: CALL LIGHT AND TABLE WITHIN REACH, SIDE RAILS UP X 2, BED IN LOWEST LOCKED POSITION. ENDORSED TO KARLA MCCANN FOR ABDULLAHI.
[2022-04-16 07:28] LABS: CALCIUM, SERUM 8.5 mg/dL (8.5-10.1); POTASSIUM 4.6 mmol/L (3.5-5.1)
[2022-04-16] MEDS: ATORVASTATIN 10 MG TABLET PO SCH (09:00)
[2022-04-16] MEDS: PANTOPRAZOLE 40 MG VIAL IV SCH (09:00)
[2022-04-16] MEDS: DOCUSATE SODIUM 100 MG CAPSULE PO SCH ×2 (09:14→16:44)
[2022-04-16] MEDS: MULTIVITAMINS,THERAGRAN 1 UDTAB TABLET PO SCH (09:15)
[2022-04-16] MEDS: FOLIC ACID 1 MG TABLET PO SCH (09:15)
[2022-04-16] MEDS: CHOLECALCIFEROL 1,000 UNIT TABLET (VIT D3) PO SCH (09:15)
[2022-04-16] MEDS: LISINOPRIL (20MG) 20 MG TABLET PO SCH ×2 (09:15→16:45)
[2022-04-16] MEDS: ASPIRIN 81 MG TAB.CHEW PO SCH (09:17)
[2022-04-16] MEDS: HYDROCHLOROTHIAZIDE 25 MG TABLET PO SCH (09:17)
[2022-04-16] MEDS: DIAZEPAM 5 MG TABLET PO SCH ×3 (09:18→16:45)
[2022-04-16 10:08] VITALS: BP 129/67
[2022-04-16] MEDS: ACETAMINOPHEN 325 MG TABLET PO PRN (11:10)
--- NOTE | 2022-04-16 16:30 | NUR ---
RN NOTES CALLED [facility] BY PHONE NUMBER [phone] AND GAVE REPORT TO LORRIE AT 1633 PM.
[2022-04-16 16:45] VITALS: BP 144/78
--- NOTE | 2022-04-16 17:00 | NUR ---
RN NOTES DISCHARGE PATIENT IN STABLE CONDITION. WITH STABLE VITAL SIGNS. ALL THE BELONGINGS ACCOUNTED AND SIGNED FOR. IV ACCESS REMOVED , COVERED WITH DRY DRESSING. NO BLEEDING NOTED. ID BANS REMOVED. ALL THE DISCHARGE INSTRUCTIONS GIVEN TO THE PATIENT. PATIENT LEFT HOSPITAL IN STABLE CONDITION VIA AMBULANCE AT 1700 . MD AND CHARGE NURSE AWARE OF THE DISCHARGE.
== END 2022-04-16 17:30 | DRG 206 ==
LOC: ER 16:22 → TELE 20:16 → MED 04-15 11:53
PROVIDERS: ADMIT Nurse Practitioner Acute Care; ATTEND Nurse Practitioner Acute Care
DX: M94.0 Chondrocostal junction syndrome [Tietze] (principal); E44.0 Moderate protein-calorie malnutrition; D68.9 Coagulation defect, unspecified; E11.9 Type 2 diabetes mellitus without complications; I11.0 Hypertensive heart disease with heart failure; I50.9 Heart failure, unspecified; Z20.822 Contact with and (suspected) exposure to COVID-19; F25.9 Schizoaffective disorder, unspecified; E55.9 Vitamin D deficiency, unspecified; Z88.5 Allergy status to narcotic agent; Z88.2 Allergy status to sulfonamides; Z88.8 Allergy status to other drugs, medicaments and biological substances; Z91.041 Radiographic dye allergy status; Z79.82 Long term (current) use of aspirin; Z79.899 Other long term (current) drug therapy; H40.9 Unspecified glaucoma; D64.9 Anemia, unspecified; R79.89 Other specified abnormal findings of blood chemistry; M54.81 Occipital neuralgia; F41.9 Anxiety disorder, unspecified; M50.30 Other cervical disc degeneration, unspecified cervical region
CPT/HCPCS: 36415; 70450-TC; 71045-TC; 72050-TC; 72052-TC; 80048-TC; 80061-TC; 80076-TC; 83540-TC; 83735-TC; 84100-TC; 84443-TC; 84484-TC; 85025-TC; 85730-TC; 87081-TC; 93307-TC; 93971-TC; 97116-TC; 97530-TC; 97535-TC; C9113; C9803; G0378; J1200; J1650; J7030

== ENCOUNTER 2022-11-15 17:14 | Emergency (ER) | payer MEDICARE, OTHER ==
[~2022-11-15] VITALS: Ht 149.9 cm; Wt 68.0 kg
[~2022-11-15 17:14] MED LIST changes: -ALBU8.5H8 IH; -CYAN100096 PO; -FAMO20TA8 PO; -HYDR-4076 PO; +NEPA3DRO EACHEYE
[2022-11-15] MEDS ORDERED: IBUPROFEN 400 MG TABLET PO ONE (18:00)
[2022-11-15] MEDS ORDERED: IV NS 0.9% 1,000 ML IV ONE (18:00)
[2022-11-15] MEDS ORDERED: LOPE2CAP PO (18:02)
[2022-11-15] MEDS ORDERED: ASPI-1420 PO (18:02)
[2022-11-15] MEDS ORDERED: FAMO20TA8 PO (18:02)
[2022-11-15] MEDS ORDERED: ZINC50TA69 PO (18:02)
[2022-11-15] MEDS ORDERED: NA P133E RC (18:02)
[2022-11-15] MEDS ORDERED: IBUPROFEN 400 MG TABLET ONE (18:44)
--- NOTE | 2022-11-15 19:05 | NUR ---
PT IN BED 7 COMPLAINING FO HEADACHE 04/14. MANY ALLERGIES NOTED. VITAL STABLE 90% ON ROOM AIR PUT ON 2L.
--- NOTE | 2022-11-15 20:50 | NUR ---
STACY CLLED FOR BLS GOING BACK TO SNF [facility] 30 MIN
--- NOTE | 2022-11-15 20:57 | NUR ---
PT STARTED IV NS @ 762 STOP TIME FOR NS DRIP 1956
[2022-11-15 21:53] VITALS: BP 119/71
== END 2022-11-15 21:53 | disposition home or self-care (01) ==
LOC: ER 17:22
DX: R51.9 Headache, unspecified (principal); I10 Essential (primary) hypertension; M19.90 Unspecified osteoarthritis, unspecified site; F41.9 Anxiety disorder, unspecified; Z88.2 Allergy status to sulfonamides; Z88.8 Allergy status to other drugs, medicaments and biological substances; Z79.899 Other long term (current) drug therapy
CPT/HCPCS: 99284; 96360; 70450; J7030

== ENCOUNTER 2023-04-20 16:06 | Inpatient (IN) | payer MEDICARE, OTHER ==
[~2023-04-20] VITALS: Ht 149.9 cm; Wt 73.9 kg
[~2023-04-20 16:06] MED LIST changes: -ASPI-1169 PO; +ASPI-1420 PO; +FAMO20TA8 PO; +LOPE2CAP PO; +NA P133E RC; +ZINC50TA69 PO
[2023-04-20 17:31] LABS: BASOPHILS # (AUTO) 0.1 K/uL (0.0-0.2); BASOPHILS % (AUTO) 1.2 % (0.0-2.0); EOSINOPHILS # (AUTO) 0.4 K/uL (0.0-0.7); EOSINOPHILS % (AUTO) 5.1 % (0.0-6.0); HEMATOCRIT 34 % (33-45); HEMOGLOBIN 11.3 g/dL (11.5-14.8); LYMPHOCYTES # (AUTO) 1.7 K/uL (0.8-4.8); LYMPHOCYTES % (AUTO) 20.7 % (20.0-44.0); MEAN CORPUSCULAR HEMOGLOBIN 33 PG (26.0-33.0); MEAN CORPUSCULAR HGB CONC 34 g/dl (31.0-36.0); MEAN CORPUSCULAR VOLUME 97 fL (82-100); MONOCYTES # (AUTO) 0.5 K/uL (0.1-1.30); MONOCYTES % (AUTO) 6.1 % (2.0-12.0); NEUTROPHILS # (AUTO) 5.6 K/uL (1.8-8.9); NEUTROPHILS % (AUTO) 66.9 % (43.0-81.0); PLATELET COUNT (AUTO) 357 K/uL (150-450); RED BLOOD CELL COUNT(AUTO) 3.46 MIL/uL (4.0-5.2); RED CELL DISTRIBUTION WIDTH 13.8 % (11.5-15.0); WHITE BLOOD COUNT (AUTO) 8.4 K/uL (4.3-11.0)
[2023-04-20 17:47] LABS: ALANINE AMINOTRANSFERASE 26 U/L (12-78); ALBUMIN 3.6 g/dL (3.4-5.0); ALKALINE PHOSPHATASE 65 U/L (46-116); ASPARTATE AMINOTRANSFERASE 13 U/L (15-37); BILIRUBIN,DIRECT 0.1 mg/dL (0.0-0.2); BILIRUBIN,TOTAL 0.2 mg/dL (0.2-1.0); TOTAL PROTEIN, SERUM 7.3 g/dL (6.4-8.2)
[2023-04-20 17:52] LABS: CALCIUM, SERUM 9.6 mg/dL (8.5-10.1); CARBON DIOXIDE 28 mmol/L (21-32); CHLORIDE 102 mmol/L (98-107); CREATININE 0.9 mg/dL (0.6-1.3); GLUCOSE 99 mg/dL (74-106); POTASSIUM 4.1 mmol/L (3.5-5.1); SODIUM SERUM 139 mmol/L (136-145); UREA NITROGEN, BLOOD 19 mg/dL (7-18)
[2023-04-20 18:04] LABS: INR 1.04 (0.91-1.10); PARTIAL THROMBOPLASTIN TIME 28.8 SEC (24.3-34.3); PROTHROMBIN TIME 10.9 SECS (9.2-11.1)
[2023-04-20 21:45] VITALS: BP 156/83; TEMP 97.9; O2SAT 97
[2023-04-20] MEDS ORDERED: MAG HYDROX/AL HYDROX/SIMETH 30 ML UDC PO PRN (23:30)
[2023-04-20] MEDS ORDERED: NA PHOS,M-B/NA PHOS,DI-BA 1 EA ENEMA RC PRN (23:30)
[2023-04-20] MEDS ORDERED: ONDANSETRON HCL/PF 4 MG/2 ML VIAL IVP PRN (23:30)
[2023-04-21] VITALS (7 sets, daily range): BP systolic 130–156; BP diastolic 69–90; TEMP 97.6–98.8; O2SAT 94–97
[2023-04-21] MEDS: ACETAMINOPHEN 325 MG TABLET PO PRN (05:24)
[2023-04-21 06:23] LABS: BASOPHILS # (AUTO) 0.1 K/uL (0.0-0.2); BASOPHILS % (AUTO) 1.2 % (0.0-2.0); EOSINOPHILS # (AUTO) 0.6 K/uL (0.0-0.7); EOSINOPHILS % (AUTO) 6.9 % (0.0-6.0); HEMATOCRIT 36 % (33-45); HEMOGLOBIN 11.7 g/dL (11.5-14.8); LYMPHOCYTES # (AUTO) 1.9 K/uL (0.8-4.8); LYMPHOCYTES % (AUTO) 23.6 % (20.0-44.0); MEAN CORPUSCULAR HEMOGLOBIN 32 PG (26.0-33.0); MEAN CORPUSCULAR HGB CONC 33 g/dl (31.0-36.0); MEAN CORPUSCULAR VOLUME 97 fL (82-100); MONOCYTES # (AUTO) 0.4 K/uL (0.1-1.30); MONOCYTES % (AUTO) 4.9 % (2.0-12.0); NEUTROPHILS # (AUTO) 5.1 K/uL (1.8-8.9); NEUTROPHILS % (AUTO) 63.4 % (43.0-81.0); PLATELET COUNT (AUTO) 385 K/uL (150-450); RED BLOOD CELL COUNT(AUTO) 3.68 MIL/uL (4.0-5.2); RED CELL DISTRIBUTION WIDTH 13.8 % (11.5-15.0); WHITE BLOOD COUNT (AUTO) 8.1 K/uL (4.3-11.0)
[2023-04-21 06:44] LABS: ALBUMIN 3.7 g/dL (3.4-5.0); BILIRUBIN,TOTAL 0.3 mg/dL (0.2-1.0); CALCIUM, SERUM 9.6 mg/dL (8.5-10.1); CREATININE 0.9 mg/dL (0.6-1.3); MAGNESIUM 2.1 mg/dL (1.8-2.4); PHOSPHORUS 4.2 mg/dL (2.5-4.9); POTASSIUM 3.8 mmol/L (3.5-5.1); TOTAL PROTEIN, SERUM 7.9 g/dL (6.4-8.2)
[2023-04-21 06:50] LABS: THYROID STIMULATING HORMONE 1.587 uIU/mL (0.358-3.74)
[2023-04-21] MEDS ORDERED: ASCO-340 PO (07:58)
[2023-04-21] MEDS: IBUPROFEN 400 MG TABLET PO PRN (08:11)
[2023-04-21] MEDS: ENOXAPARIN SODIUM 40 MG/0.4 ML DISP.SYRIN SQ SCH ×2 (09:00→09:58)
[2023-04-21] MEDS: KETOROLAC EYE 0.5% 3 ML BOTTLE EACHEYE SCH (09:00)
[2023-04-21] MEDS ORDERED: Medication Not On Formulary EA (Nepafenac (Nevanac) 1 DROP) EACHEYE SCH (09:00)
[2023-04-21] MEDS: HYDROCHLOROTHIAZIDE 25 MG TABLET PO SCH (10:02)
[2023-04-21] MEDS: LISINOPRIL (20MG) 20 MG TABLET PO SCH ×2 (10:03→20:16)
[2023-04-21] MEDS: MULTIVITAMINS,THERAGRAN 1 UDTAB TABLET PO SCH (10:06)
[2023-04-21] MEDS: DOCUSATE SODIUM 100 MG CAPSULE PO SCH ×2 (10:06→10:08)
[2023-04-21] MEDS: FAMOTIDINE (20 MG) 20 MG TABLET PO SCH (10:06)
[2023-04-21] MEDS: CHOLECALCIFEROL 1,000 UNIT TABLET (VIT D3) PO SCH (10:07)
[2023-04-21] MEDS: ASPIRIN EC 81 MG TABLET.DR PO SCH (10:08)
[2023-04-21] MEDS: ZINC SULFATE 220 MG CAPSULE PO SCH (10:11)
[2023-04-21] MEDS: POLYVINYL ALCOHOL 15 ML BOTTLE EACHEYE SCH ×4 (10:15→20:17)
[2023-04-21] MEDS: DIAZEPAM 5 MG TABLET PO PRN (13:32)
[2023-04-21] MEDS: LATANOPROST EYE DROP 0.005% 2.5 ML BOTTLE EACHEYE SCH ×3 (21:11→21:18)
[2023-04-21] MEDS: ATORVASTATIN 10 MG TABLET PO SCH ×3 (21:11→21:18)
[2023-04-22] MEDS: DIAZEPAM 5 MG TABLET PO PRN ×4 (01:48→19:57)
[2023-04-22 05:50] VITALS: BP 118/60; TEMP 97.6; O2SAT 96
[2023-04-22] MEDS ORDERED: ATOR10TA PO (08:24)
[2023-04-22 08:29] VITALS: BP 127/67; TEMP 97.9; O2SAT 97
[2023-04-22] MEDS: FAMOTIDINE (20 MG) 20 MG TABLET PO SCH (08:54)
[2023-04-22] MEDS: CHOLECALCIFEROL 1,000 UNIT TABLET (VIT D3) PO SCH (08:55)
[2023-04-22] MEDS: ASPIRIN EC 81 MG TABLET.DR PO SCH (08:55)
[2023-04-22] MEDS: MULTIVITAMINS,THERAGRAN 1 UDTAB TABLET PO SCH (08:55)
[2023-04-22] MEDS: DOCUSATE SODIUM 100 MG CAPSULE PO SCH ×2 (08:55→17:00)
[2023-04-22] MEDS: HYDROCHLOROTHIAZIDE 25 MG TABLET PO SCH (08:55)
[2023-04-22] MEDS: LISINOPRIL (20MG) 20 MG TABLET PO SCH ×2 (08:56→20:30)
[2023-04-22] MEDS: KETOROLAC EYE 0.5% 3 ML BOTTLE EACHEYE SCH (09:00)
[2023-04-22] MEDS: ZINC SULFATE 220 MG CAPSULE PO SCH (09:00)
[2023-04-22] MEDS: ENOXAPARIN SODIUM 40 MG/0.4 ML DISP.SYRIN SQ SCH (09:00)
[2023-04-22] MEDS: POLYVINYL ALCOHOL 15 ML BOTTLE EACHEYE SCH ×4 (09:00→20:32)
[2023-04-22 10:27] VITALS: BP 127/67; TEMP 97.9; O2SAT 97
[2023-04-22] MEDS: IBUPROFEN 400 MG TABLET PO PRN (14:25)
[2023-04-22] MEDS: ACETAMINOPHEN 325 MG TABLET PO PRN (15:35)
[2023-04-22 16:06] VITALS: BP 128/75; TEMP 99; O2SAT 95
[2023-04-22 20:00] VITALS: BP 132/77; TEMP 98.2; O2SAT 96
[2023-04-22] MEDS: ATORVASTATIN 10 MG TABLET PO SCH ×3 (21:41→21:48)
[2023-04-22] MEDS: LATANOPROST EYE DROP 0.005% 2.5 ML BOTTLE EACHEYE SCH (21:41)
[2023-04-23] VITALS: BP 118/67; TEMP 97.5; O2SAT 97
[2023-04-23 08:00] VITALS: BP 133/69; TEMP 98.2; O2SAT 97
[2023-04-23] MEDS: POLYVINYL ALCOHOL 15 ML BOTTLE EACHEYE SCH ×4 (09:00→20:56)
[2023-04-23] MEDS: ENOXAPARIN SODIUM 40 MG/0.4 ML DISP.SYRIN SQ SCH (09:00)
[2023-04-23] MEDS: KETOROLAC EYE 0.5% 3 ML BOTTLE EACHEYE SCH (09:00)
[2023-04-23] MEDS: ASPIRIN EC 81 MG TABLET.DR PO SCH (09:07)
[2023-04-23] MEDS: HYDROCHLOROTHIAZIDE 25 MG TABLET PO SCH (09:08)
[2023-04-23] MEDS: MULTIVITAMINS,THERAGRAN 1 UDTAB TABLET PO SCH (09:08)
[2023-04-23] MEDS: DOCUSATE SODIUM 100 MG CAPSULE PO SCH ×2 (09:08→17:00)
[2023-04-23] MEDS: FAMOTIDINE (20 MG) 20 MG TABLET PO SCH (09:09)
[2023-04-23] MEDS: LISINOPRIL (20MG) 20 MG TABLET PO SCH ×2 (09:09→20:57)
[2023-04-23] MEDS: ZINC SULFATE 220 MG CAPSULE PO SCH (09:09)
[2023-04-23] MEDS: CHOLECALCIFEROL 1,000 UNIT TABLET (VIT D3) PO SCH (09:09)
[2023-04-23] MEDS: DIAZEPAM 5 MG TABLET PO PRN ×4 (09:10→21:39)
[2023-04-23] MEDS: IBUPROFEN 400 MG TABLET PO PRN ×2 (09:22→20:28)
[2023-04-23 15:58] VITALS: BP 141/63; TEMP 98.6; O2SAT 94
[2023-04-23 20:47] VITALS: BP 130/75
[2023-04-23] MEDS: LATANOPROST EYE DROP 0.005% 2.5 ML BOTTLE EACHEYE SCH (21:01)
[2023-04-23] MEDS: ATORVASTATIN 10 MG TABLET PO SCH (21:02)
[2023-04-24 08:00] VITALS: BP 110/68; TEMP 97.2; O2SAT 98
[2023-04-24] MEDS: HYDROCHLOROTHIAZIDE 25 MG TABLET PO SCH (09:00)
[2023-04-24] MEDS: KETOROLAC EYE 0.5% 3 ML BOTTLE EACHEYE SCH (09:00)
[2023-04-24] MEDS: ENOXAPARIN SODIUM 40 MG/0.4 ML DISP.SYRIN SQ SCH (09:00)
[2023-04-24] MEDS: LISINOPRIL (20MG) 20 MG TABLET PO SCH ×4 (09:00→20:26)
[2023-04-24] MEDS: CHOLECALCIFEROL 1,000 UNIT TABLET (VIT D3) PO SCH (09:01)
[2023-04-24] MEDS: MULTIVITAMINS,THERAGRAN 1 UDTAB TABLET PO SCH (09:01)
[2023-04-24] MEDS: FAMOTIDINE (20 MG) 20 MG TABLET PO SCH (09:01)
[2023-04-24] MEDS: ASPIRIN EC 81 MG TABLET.DR PO SCH (09:01)
[2023-04-24] MEDS: ZINC SULFATE 220 MG CAPSULE PO SCH (09:01)
[2023-04-24] MEDS: DOCUSATE SODIUM 100 MG CAPSULE PO SCH ×3 (09:02→17:54)
[2023-04-24] MEDS: POLYVINYL ALCOHOL 15 ML BOTTLE EACHEYE SCH ×4 (11:01→21:03)
[2023-04-24 12:00] VITALS: BP 135/78; TEMP 98.6; O2SAT 98
[2023-04-24] MEDS ORDERED: IV NS 0.9% 500 ML IV ONE (13:00)
[2023-04-24] MEDS: DIAZEPAM 5 MG TABLET PO PRN ×3 (14:01→22:35)
[2023-04-24] MEDS: ACETAMINOPHEN 325 MG TABLET PO PRN (14:01)
[2023-04-24 16:43] VITALS: BP 144/72; TEMP 98.8; O2SAT 95
[2023-04-24 20:00] VITALS: BP_SYST 144; BP_SYST 156; BP_DIAS 120; BP_DIAS 79; TEMP 97.9; TEMP 98.2; O2SAT 97; O2SAT 99
[2023-04-24] MEDS: IBUPROFEN 400 MG TABLET PO PRN (20:30)
[2023-04-24] MEDS: ATORVASTATIN 10 MG TABLET PO SCH (21:43)
[2023-04-24] MEDS: LATANOPROST EYE DROP 0.005% 2.5 ML BOTTLE EACHEYE SCH (21:43)
[2023-04-25] VITALS: BP 130/64; TEMP 97.9; O2SAT 98
[2023-04-25] MEDS: ACETAMINOPHEN 325 MG TABLET PO PRN (01:14)
[2023-04-25 04:00] VITALS: BP 122/64; TEMP 97.6; O2SAT 98
[2023-04-25] MEDS: IBUPROFEN 400 MG TABLET PO PRN ×2 (05:26→11:12)
[2023-04-25] MEDS: DIAZEPAM 5 MG TABLET PO PRN (05:40)
[2023-04-25 08:31] VITALS: BP 114/68; TEMP 98.3; O2SAT 95
[2023-04-25] MEDS: DOCUSATE SODIUM 100 MG CAPSULE PO SCH (08:52)
[2023-04-25] MEDS: ZINC SULFATE 220 MG CAPSULE PO SCH (08:52)
[2023-04-25] MEDS: ASPIRIN EC 81 MG TABLET.DR PO SCH (08:52)
[2023-04-25] MEDS: FAMOTIDINE (20 MG) 20 MG TABLET PO SCH (08:52)
[2023-04-25] MEDS: CHOLECALCIFEROL 1,000 UNIT TABLET (VIT D3) PO SCH (08:52)
[2023-04-25 08:53] VITALS: BP 114/68
[2023-04-25] MEDS: LISINOPRIL (20MG) 20 MG TABLET PO SCH (08:53)
[2023-04-25] MEDS: MULTIVITAMINS,THERAGRAN 1 UDTAB TABLET PO SCH (08:53)
[2023-04-25] MEDS: POLYVINYL ALCOHOL 15 ML BOTTLE EACHEYE SCH (08:53)
[2023-04-25] MEDS: ENOXAPARIN SODIUM 40 MG/0.4 ML DISP.SYRIN SQ SCH (09:00)
[2023-04-25] MEDS: KETOROLAC EYE 0.5% 3 ML BOTTLE EACHEYE SCH (09:00)
[2023-04-25] MEDS ORDERED: EMPA10TA PO (11:16)
== END 2023-04-25 12:40 | DRG 206 ==
LOC: ER 16:32 → TELE 20:51
PROVIDERS: ADMIT Internal Medicine; ATTEND Nurse Practitioner Family
DX: M94.0 Chondrocostal junction syndrome [Tietze] (principal); D68.59 Other primary thrombophilia; I50.32 Chronic diastolic (congestive) heart failure; F13.239 Sedative, hypnotic or anxiolytic dependence with withdrawal, unspecified; F41.9 Anxiety disorder, unspecified; I11.0 Hypertensive heart disease with heart failure; M19.90 Unspecified osteoarthritis, unspecified site; R26.9 Unspecified abnormalities of gait and mobility; E78.5 Hyperlipidemia, unspecified; E55.9 Vitamin D deficiency, unspecified; G44.229 Chronic tension-type headache, not intractable; Z88.5 Allergy status to narcotic agent; Z88.2 Allergy status to sulfonamides; Z88.8 Allergy status to other drugs, medicaments and biological substances; Z91.041 Radiographic dye allergy status; Z79.899 Other long term (current) drug therapy; Z79.82 Long term (current) use of aspirin; G31.89 Other specified degenerative diseases of nervous system; D64.9 Anemia, unspecified; E11.9 Type 2 diabetes mellitus without complications; E66.9 Obesity, unspecified; Z68.32 Body mass index [BMI] 32.0-32.9, adult; Z74.09 Other reduced mobility; F32.A Depression, unspecified; Z90.710 Acquired absence of both cervix and uterus; Z90.49 Acquired absence of other specified parts of digestive tract
CPT/HCPCS: 36415; 71045-TC; 80048-TC; 80053-TC; 80061-TC; 80076-TC; 82607-TC; 83735-TC; 84100-TC; 84443-TC; 84484-TC; 85025-TC; 85652-TC; 85730-TC; 87081-TC; 93307-TC; 97110-TC; 97116-TC; 97530-TC; A4223; G0378; J1650; J7040

== ENCOUNTER 2024-05-02 17:12 | Inpatient (IN) | payer MEDICARE, OTHER ==
[~2024-05-02] VITALS: Ht 149.9 cm; Wt 77.3 kg
[~2024-05-02 17:12] MED LIST changes: -ACET-2605 PO; -ACET-868 PO; +ASCO-340 PO; +ATOR10TA PO; -BENZ1LOZ58 MM; +EMPA10TA PO; -HYDR25TA4 PO; -LOPE2CAP PO; -NA P133E RC
[2024-05-02] MEDS ORDERED: HYDR25TA4 PO (18:00)
[2024-05-02] MEDS ORDERED: AMLO-212 PO (18:00)
[2024-05-02 18:15] LABS: BASOPHILS # (AUTO) 0.1 K/uL (0.0-0.2); BASOPHILS % (AUTO) 0.9 % (0.0-2.0); EOSINOPHILS # (AUTO) 0.8 K/uL (0.0-0.7); EOSINOPHILS % (AUTO) 6.7 % (0.0-6.0); HEMATOCRIT 33 % (33-45); HEMOGLOBIN 10.6 g/dL (11.5-14.8); LYMPHOCYTES # (AUTO) 2.3 K/uL (0.8-4.8); LYMPHOCYTES % (AUTO) 19.9 % (20.0-44.0); MEAN CORPUSCULAR HEMOGLOBIN 31 PG (26.0-33.0); MEAN CORPUSCULAR HGB CONC 32 g/dl (31.0-36.0); MEAN CORPUSCULAR VOLUME 95 fL (82-100); MONOCYTES # (AUTO) 0.5 K/uL (0.1-1.30); MONOCYTES % (AUTO) 4.2 % (2.0-12.0); NEUTROPHILS # (AUTO) 7.8 K/uL (1.8-8.9); NEUTROPHILS % (AUTO) 68.3 % (43.0-81.0); PLATELET COUNT (AUTO) 417 K/uL (150-450); RED BLOOD CELL COUNT(AUTO) 3.43 MIL/uL (4.0-5.2); RED CELL DISTRIBUTION WIDTH 14.2 % (11.5-15.0); WHITE BLOOD COUNT (AUTO) 11.4 K/uL (4.3-11.0)
[2024-05-02 18:25] LABS: CALCIUM, SERUM 9.2 mg/dL (8.5-10.1); CARBON DIOXIDE 29 mmol/L (21-32); CHLORIDE 105 mmol/L (98-107); GLUCOSE 109 mg/dL (74-106); POTASSIUM 4.1 mmol/L (3.5-5.1); SODIUM SERUM 141 mmol/L (136-145); UREA NITROGEN, BLOOD 25 mg/dL (7-18)
[2024-05-02 18:35] LABS: NT-PRO BNP 51 pg/mL (0-125)
[2024-05-02] MEDS ORDERED: ACETAMINOPHEN 325 MG TABLET PO PRN (20:00)
[2024-05-02] MEDS ORDERED: Z GUARD REMEDY 4 OZ OINT TP PRN (20:00)
[2024-05-02] MEDS ORDERED: ONDANSETRON HCL/PF 4 MG/2 ML VIAL IVP PRN (20:00)
[2024-05-02] MEDS: AMLODIPINE BESYLATE 5 MG TABLET PO PRN (20:40)
[2024-05-02 21:00] VITALS: BP 156/79; TEMP 98.1; O2SAT 92
[2024-05-02] MEDS: ENOXAPARIN SODIUM 40 MG/0.4 ML DISP.SYRIN SQ SCH (21:09)
[2024-05-03] VITALS (9 sets, daily range): BP systolic 102–166; BP diastolic 55–88; TEMP 96.4–98.6; O2SAT 94–96
[2024-05-03 05:38] LABS: BASOPHILS # (AUTO) 0.1 K/uL (0.0-0.2); BASOPHILS % (AUTO) 1.3 % (0.0-2.0); EOSINOPHILS # (AUTO) 0.9 K/uL (0.0-0.7); EOSINOPHILS % (AUTO) 9.1 % (0.0-6.0); HEMATOCRIT 34 % (33-45); HEMOGLOBIN 10.8 g/dL (11.5-14.8); LYMPHOCYTES # (AUTO) 2.4 K/uL (0.8-4.8); LYMPHOCYTES % (AUTO) 25.3 % (20.0-44.0); MEAN CORPUSCULAR HEMOGLOBIN 31 PG (26.0-33.0); MEAN CORPUSCULAR HGB CONC 32 g/dl (31.0-36.0); MEAN CORPUSCULAR VOLUME 97 fL (82-100); MONOCYTES # (AUTO) 0.5 K/uL (0.1-1.30); MONOCYTES % (AUTO) 4.7 % (2.0-12.0); NEUTROPHILS # (AUTO) 5.8 K/uL (1.8-8.9); NEUTROPHILS % (AUTO) 59.6 % (43.0-81.0); PLATELET COUNT (AUTO) 398 K/uL (150-450); RED BLOOD CELL COUNT(AUTO) 3.47 MIL/uL (4.0-5.2); RED CELL DISTRIBUTION WIDTH 14.4 % (11.5-15.0); WHITE BLOOD COUNT (AUTO) 9.7 K/uL (4.3-11.0)
[2024-05-03 06:04] LABS: CALCIUM, SERUM 8.9 mg/dL (8.5-10.1); CARBON DIOXIDE 25 mmol/L (21-32); CHLORIDE 103 mmol/L (98-107); CREATININE 0.8 mg/dL (0.6-1.3); GLUCOSE 98 mg/dL (74-106); MAGNESIUM 2.3 mg/dL (1.8-2.4); PHOSPHORUS 4.7 mg/dL (2.5-4.9); POTASSIUM 4.1 mmol/L (3.5-5.1); SODIUM SERUM 138 mmol/L (136-145); UREA NITROGEN, BLOOD 21 mg/dL (7-18)
[2024-05-03] MEDS ORDERED: PANTOPRAZOLE 40 MG VIAL IV SCH (09:00)
[2024-05-03] MEDS: HYDROCHLOROTHIAZIDE 25 MG TABLET PO SCH (09:13)
[2024-05-03] MEDS: LISINOPRIL (20MG) 20 MG TABLET PO SCH (09:13)
[2024-05-03] MEDS: DIAZEPAM 5 MG TABLET PO SCH (09:14)
[2024-05-03] MEDS: ENOXAPARIN SODIUM 40 MG/0.4 ML DISP.SYRIN SQ SCH (09:15)
[2024-05-03] MEDS: MAG HYDROX/AL HYDROX/SIMETH 30 ML UDC PO PRN (09:45)
[2024-05-03] MEDS: METOPROLOL TARTRATE 50 MG TABLET PO SCH (12:00)
[2024-05-03] MEDS: MAGNESIUM HYDROXIDE 30 ML UDC PO PRN (15:17)
[2024-05-03] MEDS: IBUPROFEN 400 MG TABLET PO PRN (19:40)
[2024-05-04] VITALS (7 sets, daily range): BP systolic 102–132; BP diastolic 58–75; TEMP 97.7–98.8; O2SAT 94–99
[2024-05-04 07:06] LABS: BASOPHILS # (AUTO) 0.1 K/uL (0.0-0.2); BASOPHILS % (AUTO) 1.3 % (0.0-2.0); EOSINOPHILS # (AUTO) 0.9 K/uL (0.0-0.7); EOSINOPHILS % (AUTO) 8.6 % (0.0-6.0); HEMATOCRIT 34 % (33-45); HEMOGLOBIN 11.1 g/dL (11.5-14.8); LYMPHOCYTES # (AUTO) 2.4 K/uL (0.8-4.8); LYMPHOCYTES % (AUTO) 23.7 % (20.0-44.0); MEAN CORPUSCULAR HEMOGLOBIN 31 PG (26.0-33.0); MEAN CORPUSCULAR HGB CONC 33 g/dl (31.0-36.0); MEAN CORPUSCULAR VOLUME 96 fL (82-100); MONOCYTES # (AUTO) 0.4 K/uL (0.1-1.30); MONOCYTES % (AUTO) 4.1 % (2.0-12.0); NEUTROPHILS # (AUTO) 6.4 K/uL (1.8-8.9); NEUTROPHILS % (AUTO) 62.3 % (43.0-81.0); PLATELET COUNT (AUTO) 411 K/uL (150-450); RED BLOOD CELL COUNT(AUTO) 3.55 MIL/uL (4.0-5.2); RED CELL DISTRIBUTION WIDTH 14.5 % (11.5-15.0); WHITE BLOOD COUNT (AUTO) 10.2 K/uL (4.3-11.0)
[2024-05-04 07:21] LABS: CARBON DIOXIDE 29 mmol/L (21-32); CHLORIDE 101 mmol/L (98-107); CREATININE 0.8 mg/dL (0.6-1.3); GLUCOSE 99 mg/dL (74-106); POTASSIUM 4.6 mmol/L (3.5-5.1); SODIUM SERUM 137 mmol/L (136-145); UREA NITROGEN, BLOOD 27 mg/dL (7-18)
[2024-05-04] MEDS ORDERED: METO50TA16 PO (12:21)
[2024-05-05 06:48] LABS: BASOPHILS # (AUTO) 0.1 K/uL (0.0-0.2); BASOPHILS % (AUTO) 1.2 % (0.0-2.0); EOSINOPHILS % (AUTO) 9.3 % (0.0-6.0); HEMATOCRIT 34 % (33-45); HEMOGLOBIN 11.1 g/dL (11.5-14.8); LYMPHOCYTES # (AUTO) 2.7 K/uL (0.8-4.8); MEAN CORPUSCULAR HEMOGLOBIN 31 PG (26.0-33.0); MEAN CORPUSCULAR HGB CONC 33 g/dl (31.0-36.0); MEAN CORPUSCULAR VOLUME 96 fL (82-100); MONOCYTES # (AUTO) 0.5 K/uL (0.1-1.30); MONOCYTES % (AUTO) 4.4 % (2.0-12.0); NEUTROPHILS # (AUTO) 6.2 K/uL (1.8-8.9); NEUTROPHILS % (AUTO) 59.1 % (43.0-81.0); PLATELET COUNT (AUTO) 408 K/uL (150-450); RED BLOOD CELL COUNT(AUTO) 3.56 MIL/uL (4.0-5.2); RED CELL DISTRIBUTION WIDTH 14.6 % (11.5-15.0); WHITE BLOOD COUNT (AUTO) 10.5 K/uL (4.3-11.0)
[2024-05-05 07:21] LABS: CALCIUM, SERUM 8.8 mg/dL (8.5-10.1); CARBON DIOXIDE 26 mmol/L (21-32); CHLORIDE 100 mmol/L (98-107); CREATININE 0.9 mg/dL (0.6-1.3); GLUCOSE 101 mg/dL (74-106); POTASSIUM 4.3 mmol/L (3.5-5.1); SODIUM SERUM 136 mmol/L (136-145); UREA NITROGEN, BLOOD 31 mg/dL (7-18)
[2024-05-05 08:00] VITALS: BP 103/63; TEMP 98.6; O2SAT 95
[2024-05-05 08:27] VITALS: BP 120/69
== END 2024-05-05 17:32 | DRG 206 ==
LOC: ER 17:18 → TELE 19:24 → MED 05-04 12:20
PROVIDERS: ATTEND Internal Medicine
DX: M94.0 Chondrocostal junction syndrome [Tietze] (principal); D68.59 Other primary thrombophilia; I50.32 Chronic diastolic (congestive) heart failure; F41.9 Anxiety disorder, unspecified; I11.0 Hypertensive heart disease with heart failure; E11.9 Type 2 diabetes mellitus without complications; E78.5 Hyperlipidemia, unspecified; Z88.2 Allergy status to sulfonamides; Z90.710 Acquired absence of both cervix and uterus; G47.33 Obstructive sleep apnea (adult) (pediatric); D72.829 Elevated white blood cell count, unspecified; F41.0 Panic disorder [episodic paroxysmal anxiety]; F32.A Depression, unspecified; D63.8 Anemia in other chronic diseases classified elsewhere; Z74.09 Other reduced mobility; Z68.34 Body mass index [BMI] 34.0-34.9, adult; E66.01 Morbid (severe) obesity due to excess calories; Z91.041 Radiographic dye allergy status
CPT/HCPCS: 36415; 71045-TC; 80048-TC; 83735-TC; 83880; 84100-TC; 84484-TC; 85025-TC; 93307-TC; 93971-TC; 97116-TC; 97530-TC; G0378; J1650

== ENCOUNTER 2024-05-06 05:53 | Emergency (ER) | payer MEDICARE, OTHER ==
[~2024-05-06] VITALS: Ht 149.9 cm; Wt 74.8 kg
[~2024-05-06 05:53] MED LIST changes: +AMLO-212 PO; -ASCO-340 PO; -ATOR10TA PO; -CHOL100043 PO; -DOCU-141 PO; -EMPA10TA PO; -FAMO20TA8 PO; +HYDR25TA4 PO; -IBUP-1953 PO; -LATA2.5D15 EACHEYE; -MAG30ORA PO; +METO50TA16 PO; -MULT1TAB70 PO; -NEPA3DRO EACHEYE; -POLY15DR40 EACHEYE; -ZINC50TA69 PO
[2024-05-06 06:51] LABS: BASOPHILS # (AUTO) 0.1 K/uL (0.0-0.2); BASOPHILS % (AUTO) 0.8 % (0.0-2.0); EOSINOPHILS % (AUTO) 9.1 % (0.0-6.0); HEMATOCRIT 32 % (33-45); HEMOGLOBIN 10.6 g/dL (11.5-14.8); LYMPHOCYTES # (AUTO) 2.5 K/uL (0.8-4.8); LYMPHOCYTES % (AUTO) 24.1 % (20.0-44.0); MEAN CORPUSCULAR HEMOGLOBIN 32 PG (26.0-33.0); MEAN CORPUSCULAR HGB CONC 33 g/dl (31.0-36.0); MEAN CORPUSCULAR VOLUME 96 fL (82-100); MONOCYTES # (AUTO) 0.6 K/uL (0.1-1.30); MONOCYTES % (AUTO) 5.5 % (2.0-12.0); NEUTROPHILS # (AUTO) 6.4 K/uL (1.8-8.9); NEUTROPHILS % (AUTO) 60.5 % (43.0-81.0); PLATELET COUNT (AUTO) 415 K/uL (150-450); RED BLOOD CELL COUNT(AUTO) 3.36 MIL/uL (4.0-5.2); RED CELL DISTRIBUTION WIDTH 14.3 % (11.5-15.0); WHITE BLOOD COUNT (AUTO) 10.5 K/uL (4.3-11.0)
[2024-05-06 07:07] LABS: ALANINE AMINOTRANSFERASE 20 U/L (12-78); ALBUMIN 3.2 g/dL (3.4-5.0); ALKALINE PHOSPHATASE 72 U/L (46-116); ASPARTATE AMINOTRANSFERASE 5 U/L (15-37); BILIRUBIN,DIRECT 0.1 mg/dL (0.0-0.2); BILIRUBIN,TOTAL 0.2 mg/dL (0.2-1.0); CALCIUM, SERUM 9.1 mg/dL (8.5-10.1); CARBON DIOXIDE 30 mmol/L (21-32); CHLORIDE 103 mmol/L (98-107); CREATININE 1.1 mg/dL (0.6-1.3); GLUCOSE 99 mg/dL (74-106); POTASSIUM 3.8 mmol/L (3.5-5.1); SODIUM SERUM 138 mmol/L (136-145); UREA NITROGEN, BLOOD 33 mg/dL (7-18)
[2024-05-06 11:51] VITALS: BP 117/76; TEMP 98.4; O2SAT 98
== END 2024-05-06 11:51 | disposition home or self-care (01) ==
LOC: ER 06:10
DX: R51.9 Headache, unspecified (principal); I10 Essential (primary) hypertension; Z79.82 Long term (current) use of aspirin; Z88.5 Allergy status to narcotic agent; Z88.2 Allergy status to sulfonamides; Z98.890 Other specified postprocedural states
CPT/HCPCS: 36415; 70450-TC; 80048-TC; 80076-TC; 84484-TC; 85025-TC

== ENCOUNTER 2024-05-27 11:59 | Emergency (ER) | payer MEDICARE, OTHER ==
[~2024-05-27] VITALS: Ht 149.9 cm; Wt 72.6 kg
[2024-05-27] MEDS ORDERED: ACETAMINOPHEN ES 500 MG TABLET ONE (12:35)
[2024-05-27] MEDS ORDERED: diphenhydrAMINE HCL 50 MG/ML VIAL ONE (12:35)
[2024-05-27] MEDS: ACETAMINOPHEN ES 500 MG TABLET PO ONE (12:44)
[2024-05-27] MEDS: diphenhydrAMINE HCL 50 MG/ML VIAL IV ONE (12:44)
[2024-05-27 12:49] LABS: BASOPHILS # (AUTO) 0.1 K/uL (0.0-0.2); BASOPHILS % (AUTO) 0.9 % (0.0-2.0); EOSINOPHILS # (AUTO) 0.4 K/uL (0.0-0.7); EOSINOPHILS % (AUTO) 4.7 % (0.0-6.0); HEMATOCRIT 33 % (33-45); HEMOGLOBIN 10.9 g/dL (11.5-14.8); LYMPHOCYTES # (AUTO) 0.6 K/uL (0.8-4.8); LYMPHOCYTES % (AUTO) 6.8 % (20.0-44.0); MEAN CORPUSCULAR HEMOGLOBIN 32 PG (26.0-33.0); MEAN CORPUSCULAR HGB CONC 33 g/dl (31.0-36.0); MEAN CORPUSCULAR VOLUME 97 fL (82-100); MONOCYTES # (AUTO) 0.5 K/uL (0.1-1.30); MONOCYTES % (AUTO) 5.6 % (2.0-12.0); NEUTROPHILS # (AUTO) 7.3 K/uL (1.8-8.9); PLATELET COUNT (AUTO) 325 K/uL (150-450); RED BLOOD CELL COUNT(AUTO) 3.41 MIL/uL (4.0-5.2); RED CELL DISTRIBUTION WIDTH 14.2 % (11.5-15.0); WHITE BLOOD COUNT (AUTO) 8.9 K/uL (4.3-11.0)
[2024-05-27 12:52] LABS: CALCIUM, SERUM 9.2 mg/dL (8.5-10.1); CARBON DIOXIDE 29 mmol/L (21-32); CHLORIDE 103 mmol/L (98-107); CREATININE 0.9 mg/dL (0.6-1.3); GLUCOSE 131 mg/dL (74-106); POTASSIUM 3.9 mmol/L (3.5-5.1); SODIUM SERUM 140 mmol/L (136-145); UREA NITROGEN, BLOOD 19 mg/dL (7-18)
[2024-05-27 12:59] LABS: PROTHROMBIN TIME 10.6 SECS (9.2-11.1)
[2024-05-27 13:06] LABS: ALANINE AMINOTRANSFERASE 17 U/L (12-78); ALBUMIN 3.4 g/dL (3.4-5.0); ALKALINE PHOSPHATASE 71 U/L (46-116); ASPARTATE AMINOTRANSFERASE 5 U/L (15-37); BILIRUBIN,DIRECT 0.1 mg/dL (0.0-0.2); BILIRUBIN,TOTAL 0.1 mg/dL (0.2-1.0); NT-PRO BNP 27 pg/mL (0-125); TOTAL PROTEIN, SERUM 7.1 g/dL (6.4-8.2)
[2024-05-27 16:19] VITALS: BP 122/62; TEMP 98.8; O2SAT 99
== END 2024-05-27 16:20 ==
LOC: ER 12:03
DX: R51.9 Headache, unspecified (principal); I10 Essential (primary) hypertension; M19.90 Unspecified osteoarthritis, unspecified site; Z79.82 Long term (current) use of aspirin; Z79.899 Other long term (current) drug therapy; Z88.2 Allergy status to sulfonamides; Z88.5 Allergy status to narcotic agent; Z88.8 Allergy status to other drugs, medicaments and biological substances; Z91.041 Radiographic dye allergy status
CPT/HCPCS: 36415; 70450-TC; 71045-TC; 80048-TC; 80076-TC; 83880; 84484-TC; 85025-TC; 85730-TC; 86850-TC; J1200

== ENCOUNTER 2024-06-14 04:27 | Emergency (ER) | payer MEDICARE, OTHER ==
[~2024-06-14] VITALS: Ht 162.6 cm; Wt 68.0 kg
[2024-06-14 06:09] LABS: BASOPHILS # (AUTO) 0.1 K/uL (0.0-0.2); BASOPHILS % (AUTO) 1.1 % (0.0-2.0); EOSINOPHILS # (AUTO) 0.8 K/uL (0.0-0.7); EOSINOPHILS % (AUTO) 9.3 % (0.0-6.0); HEMATOCRIT 32 % (33-45); HEMOGLOBIN 10.4 g/dL (11.5-14.8); LYMPHOCYTES # (AUTO) 2.6 K/uL (0.8-4.8); LYMPHOCYTES % (AUTO) 28.2 % (20.0-44.0); MEAN CORPUSCULAR HEMOGLOBIN 32 PG (26.0-33.0); MEAN CORPUSCULAR HGB CONC 32 g/dl (31.0-36.0); MEAN CORPUSCULAR VOLUME 100 fL (82-100); MONOCYTES # (AUTO) 0.5 K/uL (0.1-1.30); MONOCYTES % (AUTO) 5.9 % (2.0-12.0); NEUTROPHILS % (AUTO) 55.5 % (43.0-81.0); PLATELET COUNT (AUTO) 334 K/uL (150-450); RED BLOOD CELL COUNT(AUTO) 3.24 MIL/uL (4.0-5.2); RED CELL DISTRIBUTION WIDTH 15.2 % (11.5-15.0); WHITE BLOOD COUNT (AUTO) 9.1 K/uL (4.3-11.0)
[2024-06-14 06:16] LABS: INR 1.02 (0.91-1.10); PROTHROMBIN TIME 10.8 SECS (9.2-11.1)
[2024-06-14 06:18] LABS: ALANINE AMINOTRANSFERASE 19 U/L (12-78); ALBUMIN 3.3 g/dL (3.4-5.0); ALKALINE PHOSPHATASE 67 U/L (46-116); ASPARTATE AMINOTRANSFERASE 11 U/L (15-37); BILIRUBIN,TOTAL 0.1 mg/dL (0.2-1.0); CALCIUM, SERUM 8.9 mg/dL (8.5-10.1); CARBON DIOXIDE 32 mmol/L (21-32); CHLORIDE 101 mmol/L (98-107); CREATININE 1.2 mg/dL (0.6-1.3); GLUCOSE 102 mg/dL (74-106); SODIUM SERUM 140 mmol/L (136-145); TOTAL PROTEIN, SERUM 6.9 g/dL (6.4-8.2); UREA NITROGEN, BLOOD 38 mg/dL (7-18)
[2024-06-14 06:43] LABS: APPEARANCE,URINE CLEAR (CLEAR); BILIRUBIN,URINE NEGATIVE (NEGATIVE); BLOOD, URINE NEGATIVE Ery/uL (NEGATIVE); COLOR,URINE YELLOW (YELLOW); KETONES,URINE NEGATIVE (NEGATIVE); LEUKOCYTE ESTERASE ,URINE TRACE (NEGATIVE); NITRITE, URINE NEGATIVE (NEGATIVE); PH,URINE 5.5 (5.0-8.0); PROTEIN,URINE NEGATIVE (NEGATIVE); UGLUCOSE NEGATIVE (NEGATIVE); UROBILINOGEN,URINE 0.2 EU/dL (0.2)
[2024-06-14] MEDS ORDERED: diphenhydrAMINE HCL ELIX 25 MG/10 ML UDC ONE (06:48)
[2024-06-14] MEDS ORDERED: ACETAMINOPHEN ES 500 MG TABLET ONE (06:49)
[2024-06-14 06:59] LABS: ADD URINE CULTURE NO; BACTERIA,URINE Few /HPF (None Seen); RBC,URINE 0-2 /HPF (0-2); SQUAMOUS EPITHELIAL CELL,UR Rare /HPF (None Seen)
[2024-06-14] MEDS ORDERED: ACET-2605 PO (07:12)
[2024-06-14] MEDS: ACETAMINOPHEN ES 500 MG TABLET PO ONE (07:19)
[2024-06-14] MEDS: DIPHENHYDRAMINE HCL 12.5 MG/5 ML UDC PO ONE (07:21)
[2024-06-14 11:18] VITALS: BP 116/64; TEMP 98; O2SAT 96
== END 2024-06-14 11:18 | disposition home or self-care (01) ==
LOC: ER 04:33
DX: S06.5XAA Traumatic subdural hemorrhage with loss of consciousness status unknown, initial encounter (principal); R51.9 Headache, unspecified; I10 Essential (primary) hypertension; M19.90 Unspecified osteoarthritis, unspecified site; Z79.82 Long term (current) use of aspirin; Z79.899 Other long term (current) drug therapy; Z88.2 Allergy status to sulfonamides; Z88.5 Allergy status to narcotic agent; Z88.8 Allergy status to other drugs, medicaments and biological substances; Z91.041 Radiographic dye allergy status
CPT/HCPCS: 99285; 85025; 85610; 81001; 36415; 80053; Q0163 ×2

== ENCOUNTER 2024-06-24 03:22 | Emergency (ER) | payer MEDICARE, OTHER ==
[~2024-06-24] VITALS: Ht 162.6 cm; Wt 68.0 kg
[~2024-06-24 03:22] MED LIST changes: +ACET-2605 PO
[2024-06-24 03:25] VITALS: BP 120/59; TEMP 98
[2024-06-24] MEDS ORDERED: SUMATRIPTAN SUCCINATE 6 MG/0.5 ML VIAL SQ ONE (04:48)
[2024-06-24] MEDS ORDERED: PROCHLORPERAZINE EDISYLATE 10 MG/2 ML VIAL ONE (04:48)
[2024-06-24] MEDS ORDERED: KETOROLAC TROMETHAMINE INJ 30 MG/ML VIAL ONE (04:48)
[2024-06-24] MEDS ORDERED: ACETAMINOPHEN ES 500 MG TABLET ONE (04:49)
[2024-06-24] MEDS: KETOROLAC TROMETHAMINE INJ 30 MG/ML VIAL IM ONE (05:04)
[2024-06-24] MEDS: PROCHLORPERAZINE EDISYLATE 10 MG/2 ML VIAL IM ONE (05:04)
[2024-06-24] MEDS: ACETAMINOPHEN ES 500 MG TABLET PO ONE (05:04)
[2024-06-24] MEDS: SUMATRIPTAN SUCCINATE 6 MG/0.5 ML VIAL SQ ONE (05:05)
[2024-06-24 09:28] VITALS: O2SAT 99
== END 2024-06-24 09:29 | disposition home or self-care (01) ==
LOC: ER 03:26
DX: R51.9 Headache, unspecified (principal); I10 Essential (primary) hypertension; M19.90 Unspecified osteoarthritis, unspecified site; Z79.82 Long term (current) use of aspirin; Z88.2 Allergy status to sulfonamides; Z88.5 Allergy status to narcotic agent; Z88.8 Allergy status to other drugs, medicaments and biological substances; Z91.041 Radiographic dye allergy status
CPT/HCPCS: J0780; J1885; J3030

== ENCOUNTER 2024-07-14 23:43 | Emergency (ER) | payer MEDICARE, OTHER ==
[~2024-07-14] VITALS: Ht 149.9 cm; Wt 117.9 kg
[2024-07-15 00:43] LABS: BASOPHILS # (AUTO) 0.1 K/uL (0.0-0.2); EOSINOPHILS # (AUTO) 0.7 K/uL (0.0-0.7); EOSINOPHILS % (AUTO) 8.2 % (0.0-6.0); HEMATOCRIT 31 % (33-45); HEMOGLOBIN 10.2 g/dL (11.5-14.8); LYMPHOCYTES # (AUTO) 2.5 K/uL (0.8-4.8); LYMPHOCYTES % (AUTO) 27.7 % (20.0-44.0); MEAN CORPUSCULAR HEMOGLOBIN 32 PG (26.0-33.0); MEAN CORPUSCULAR HGB CONC 33 g/dl (31.0-36.0); MEAN CORPUSCULAR VOLUME 96 fL (82-100); MONOCYTES # (AUTO) 0.6 K/uL (0.1-1.30); MONOCYTES % (AUTO) 6.7 % (2.0-12.0); NEUTROPHILS % (AUTO) 56.4 % (43.0-81.0); PLATELET COUNT (AUTO) 388 K/uL (150-450); RED BLOOD CELL COUNT(AUTO) 3.18 MIL/uL (4.0-5.2); RED CELL DISTRIBUTION WIDTH 14.5 % (11.5-15.0); WHITE BLOOD COUNT (AUTO) 8.9 K/uL (4.3-11.0)
[2024-07-15 00:52] LABS: CREATININE 1.4 mg/dL (0.6-1.3); POTASSIUM 4.1 mmol/L (3.5-5.1)
[2024-07-15 01:05] LABS: ALBUMIN 3.3 g/dL (3.4-5.0); BILIRUBIN,TOTAL 0.5 mg/dL (0.2-1.0); TOTAL PROTEIN, SERUM 6.9 g/dL (6.4-8.2)
[2024-07-15 02:22] LABS: APPEARANCE,URINE SLIGHTLY CLOUDY (CLEAR); BILIRUBIN,URINE NEGATIVE (NEGATIVE); BLOOD, URINE NEGATIVE Ery/uL (NEGATIVE); KETONES,URINE NEGATIVE (NEGATIVE); LEUKOCYTE ESTERASE ,URINE TRACE (NEGATIVE); NITRITE, URINE NEGATIVE (NEGATIVE); PROTEIN,URINE NEGATIVE (NEGATIVE); UGLUCOSE NEGATIVE (NEGATIVE); UROBILINOGEN,URINE 0.2 EU/dL (0.2)
[2024-07-15 02:23] LABS: COLOR,URINE LIGHT YELLOW (YELLOW)
[2024-07-15 02:48] LABS: RBC,URINE NONE SEEN /HPF (0-2)
[2024-07-15 02:49] LABS: ADD URINE CULTURE NO; BACTERIA,URINE Rare /HPF (None Seen)
[2024-07-15] MEDS ORDERED: KETOROLAC TROMETHAMINE 15 MG/ML VIAL ONE ×2 (02:50→03:20)
[2024-07-15] MEDS: KETOROLAC TROMETHAMINE 15 MG/ML VIAL IM ONE (02:57)
[2024-07-15 03:56] VITALS: BP 144/81; TEMP 98.7; O2SAT 96
== END 2024-07-15 03:56 | disposition home or self-care (01) ==
LOC: ER 23:43
DX: R51.9 Headache, unspecified (principal); I10 Essential (primary) hypertension; M19.90 Unspecified osteoarthritis, unspecified site; Z79.82 Long term (current) use of aspirin; Z79.899 Other long term (current) drug therapy; Z88.2 Allergy status to sulfonamides; Z88.5 Allergy status to narcotic agent; Z88.8 Allergy status to other drugs, medicaments and biological substances; Z91.041 Radiographic dye allergy status
CPT/HCPCS: 99285; 70450; 71045; 96372; 93005; 85025; 81001; 36415; 80053; 84484; 83880; J1885

== ENCOUNTER 2024-10-23 00:41 | Inpatient (IN) | payer MEDICARE, OTHER ==
[~2024-10-23] VITALS: Ht 149.9 cm; Wt 77.1 kg
[2024-10-23] MEDS ORDERED: NITROGLYCERIN 0.4 MG/TAB BOTTLE ONE (01:07)
[2024-10-23] MEDS ORDERED: ASPIRIN 325 MG TABLET ONE (01:07)
[2024-10-23] MEDS: ASPIRIN 325 MG TABLET PO ONE (01:08)
[2024-10-23] MEDS: NITROGLYCERIN 0.4 MG/TAB BOTTLE SL ONE (01:15)
[2024-10-23 01:22] LABS: BASOPHILS # (AUTO) 0.1 K/uL (0.0-0.2); BASOPHILS % (AUTO) 1.3 % (0.0-2.0); EOSINOPHILS # (AUTO) 0.9 K/uL (0.0-0.7); EOSINOPHILS % (AUTO) 10.4 % (0.0-6.0); HEMATOCRIT 35 % (33-45); HEMOGLOBIN 11.7 g/dL (11.5-14.8); LYMPHOCYTES % (AUTO) 23.9 % (20.0-44.0); MEAN CORPUSCULAR HEMOGLOBIN 32 PG (26.0-33.0); MEAN CORPUSCULAR HGB CONC 34 g/dl (31.0-36.0); MEAN CORPUSCULAR VOLUME 94 fL (82-100); MONOCYTES # (AUTO) 0.5 K/uL (0.1-1.30); MONOCYTES % (AUTO) 5.7 % (2.0-12.0); NEUTROPHILS # (AUTO) 4.8 K/uL (1.8-8.9); NEUTROPHILS % (AUTO) 58.7 % (43.0-81.0); PLATELET COUNT (AUTO) 365 K/uL (150-450); RED CELL DISTRIBUTION WIDTH 13.9 % (11.5-15.0); WHITE BLOOD COUNT (AUTO) 8.3 K/uL (4.3-11.0)
[2024-10-23 01:37] LABS: INR 1.02 (0.91-1.10); PARTIAL THROMBOPLASTIN TIME 29.6 SEC (24.3-34.3); PROTHROMBIN TIME 10.8 SECS (9.2-11.1)
[2024-10-23 01:45] LABS: CALCIUM, SERUM 9.8 mg/dL (8.5-10.1); CARBON DIOXIDE 27 mmol/L (21-32); CHLORIDE 92 mmol/L (98-107); CREATININE 1.3 mg/dL (0.6-1.3); GLUCOSE 84 mg/dL (74-106); POTASSIUM 3.9 mmol/L (3.5-5.1); SODIUM SERUM 129 mmol/L (136-145); UREA NITROGEN, BLOOD 33 mg/dL (7-18)
[2024-10-23 01:59] LABS: ALANINE AMINOTRANSFERASE 43 U/L (12-78); ALBUMIN 3.9 g/dL (3.4-5.0); ALKALINE PHOSPHATASE 69 U/L (46-116); ASPARTATE AMINOTRANSFERASE 23 U/L (15-37); BILIRUBIN,DIRECT 0.1 mg/dL (0.0-0.2); BILIRUBIN,TOTAL 0.3 mg/dL (0.2-1.0); NT-PRO BNP 22 pg/mL (0-125); TOTAL PROTEIN, SERUM 7.6 g/dL (6.4-8.2)
[2024-10-23] MEDS ORDERED: MAG HYDROX/AL HYDROX/SIMETH 30 ML UDC PO PRN (06:00)
[2024-10-23] MEDS ORDERED: AMLODIPINE BESYLATE 5 MG TABLET PO PRN (06:00)
[2024-10-23] MEDS: METOPROLOL TARTRATE 50 MG TABLET PO SCH (06:00)
[2024-10-23] MEDS ORDERED: ONDANSETRON HCL/PF 4 MG/2 ML VIAL IVP PRN (06:00)
[2024-10-23] MEDS ORDERED: ENOXAPARIN SODIUM 40 MG/0.4 ML DISP.SYRIN SQ ONE (06:13)
[2024-10-23] MEDS: ENOXAPARIN SODIUM 40 MG/0.4 ML DISP.SYRIN SQ SCH (06:24)
[2024-10-23 07:00] LABS: CHOLESTEROL 176 mg/dL (<200); HDL CHOLESTEROL 76 mg/dL (40-60); LDL 81 mg/dL (0-99); TRIGLYCERIDES 79 mg/dL (30-150)
[2024-10-23] MEDS ORDERED: ASPI-1169 PO (08:43)
[2024-10-23] MEDS ORDERED: METF-440 PO (08:43)
[2024-10-23] MEDS ORDERED: DEXTROSE 50%-WATER 50 ML DISP.SYRIN IV PRN (09:00)
[2024-10-23 10:32] VITALS: BP 112/63; TEMP 97.3; O2SAT 97
[2024-10-23] MEDS: ASPIRIN EC 81 MG TABLET.DR PO SCH (10:43)
[2024-10-23] MEDS: HYDROCHLOROTHIAZIDE 25 MG TABLET PO SCH (10:43)
[2024-10-23] MEDS: DIAZEPAM 5 MG TABLET PO SCH (10:44)
[2024-10-23] MEDS: ATORVASTATIN 10 MG TABLET PO SCH (10:44)
[2024-10-23] MEDS: CEPHALEXIN MONOHYDRATE 500 MG CAPSULE PO SCH (10:44)
[2024-10-23] MEDS: LISINOPRIL (20MG) 20 MG TABLET PO SCH (10:44)
[2024-10-23 12:00] VITALS: BP 122/64; TEMP 97.8; O2SAT 97
[2024-10-23] MEDS: BLOOD SUGAR DIAGNOSTIC 1 EACH STRIP IN SCH (12:55)
[2024-10-23 16:00] VITALS: BP 129/72; TEMP 97.7; O2SAT 97
[2024-10-23 20:00] VITALS: BP 132/66; TEMP 97.5; O2SAT 97
[2024-10-23] MEDS: INSULIN REGULAR, HUMAN 100 UNIT/ML 3 ML VIAL SQ PRN (21:07)
[2024-10-23] MEDS: ACETAMINOPHEN 325 MG TABLET PO PRN (21:28)
[2024-10-23] MEDS ORDERED: ATORVASTATIN 10 MG TABLET PO SCH (22:00)
[2024-10-23 22:51] VITALS: BP 132/66; TEMP 97.5; O2SAT 97
[2024-10-24] VITALS (8 sets, daily range): BP systolic 96–136; BP diastolic 54–65; TEMP 97.5–98.4; O2SAT 94–99
[2024-10-24 06:37] LABS: BASOPHILS # (AUTO) 0.1 K/uL (0.0-0.2); EOSINOPHILS # (AUTO) 0.8 K/uL (0.0-0.7); EOSINOPHILS % (AUTO) 11.4 % (0.0-6.0); HEMATOCRIT 33 % (33-45); HEMOGLOBIN 11.6 g/dL (11.5-14.8); LYMPHOCYTES # (AUTO) 1.8 K/uL (0.8-4.8); LYMPHOCYTES % (AUTO) 26.6 % (20.0-44.0); MEAN CORPUSCULAR HEMOGLOBIN 33 PG (26.0-33.0); MEAN CORPUSCULAR HGB CONC 35 g/dl (31.0-36.0); MEAN CORPUSCULAR VOLUME 95 fL (82-100); MONOCYTES # (AUTO) 0.4 K/uL (0.1-1.30); NEUTROPHILS # (AUTO) 3.8 K/uL (1.8-8.9); PLATELET COUNT (AUTO) 349 K/uL (150-450); RED BLOOD CELL COUNT(AUTO) 3.51 MIL/uL (4.0-5.2); WHITE BLOOD COUNT (AUTO) 6.8 K/uL (4.3-11.0)
[2024-10-24 07:03] LABS: CALCIUM, SERUM 9.3 mg/dL (8.5-10.1); CREATININE 0.9 mg/dL (0.6-1.3); PHOSPHORUS 3.9 mg/dL (2.5-4.9); POTASSIUM 3.7 mmol/L (3.5-5.1)
[2024-10-24] MEDS: IV NS 0.9% 1,000 ML IV PRN (11:41)
[2024-10-24 16:41] LABS: APPEARANCE,URINE CLEAR (CLEAR); BILIRUBIN,URINE NEGATIVE (NEGATIVE); BLOOD, URINE NEGATIVE Ery/uL (NEGATIVE); COLOR,URINE YELLOW (YELLOW); KETONES,URINE NEGATIVE (NEGATIVE); LEUKOCYTE ESTERASE ,URINE NEGATIVE (NEGATIVE); NITRITE, URINE NEGATIVE (NEGATIVE); PROTEIN,URINE NEGATIVE (NEGATIVE); UGLUCOSE NEGATIVE (NEGATIVE); UROBILINOGEN,URINE 0.2 EU/dL (0.2)
[2024-10-24 18:11] LABS: CREATININE, URINE 43.1 MG/DL (30.0-125.0); URINE TOTAL PROTEIN 9.8 mg/dL (0-11.9)
[2024-10-24 18:13] LABS: EOSINOPHIL,URINE None Seen
[2024-10-25 07:00] VITALS: BP 122/61; TEMP 97.5; O2SAT 98
[2024-10-25 16:00] VITALS: BP 126/71; TEMP 97.9; O2SAT 98
[2024-10-25 20:00] VITALS: BP 134/79; TEMP 97.5; O2SAT 99
[2024-10-26 06:40] LABS: BASOPHILS # (AUTO) 0.1 K/uL (0.0-0.2); EOSINOPHILS # (AUTO) 0.7 K/uL (0.0-0.7); EOSINOPHILS % (AUTO) 10.5 % (0.0-6.0); HEMATOCRIT 35 % (33-45); LYMPHOCYTES # (AUTO) 1.9 K/uL (0.8-4.8); LYMPHOCYTES % (AUTO) 28.5 % (20.0-44.0); MEAN CORPUSCULAR HEMOGLOBIN 33 PG (26.0-33.0); MEAN CORPUSCULAR HGB CONC 34 g/dl (31.0-36.0); MEAN CORPUSCULAR VOLUME 97 fL (82-100); MONOCYTES # (AUTO) 0.5 K/uL (0.1-1.30); NEUTROPHILS # (AUTO) 3.5 K/uL (1.8-8.9); PLATELET COUNT (AUTO) 333 K/uL (150-450); RED BLOOD CELL COUNT(AUTO) 3.65 MIL/uL (4.0-5.2); RED CELL DISTRIBUTION WIDTH 14.1 % (11.5-15.0); WHITE BLOOD COUNT (AUTO) 6.7 K/uL (4.3-11.0)
[2024-10-26 07:12] LABS: ALBUMIN 3.1 g/dL (3.4-5.0); BILIRUBIN,TOTAL 0.2 mg/dL (0.2-1.0); CALCIUM, SERUM 9.3 mg/dL (8.5-10.1); CREATININE 0.9 mg/dL (0.6-1.3); MAGNESIUM 2.2 mg/dL (1.8-2.4); PHOSPHORUS 3.6 mg/dL (2.5-4.9); POTASSIUM 4.2 mmol/L (3.5-5.1); TOTAL PROTEIN, SERUM 6.6 g/dL (6.4-8.2)
[2024-10-26 15:22] VITALS: BP 144/88
== END 2024-10-26 15:40 | DRG 205 ==
LOC: ER 00:53 → TELE 09:16 → MED 10-24 09:00
DX: M94.0 Chondrocostal junction syndrome [Tietze] (principal); N17.0 Acute kidney failure with tubular necrosis; N39.0 Urinary tract infection, site not specified; E87.1 Hypo-osmolality and hyponatremia; E86.0 Dehydration; M19.90 Unspecified osteoarthritis, unspecified site; R26.9 Unspecified abnormalities of gait and mobility; E55.9 Vitamin D deficiency, unspecified; G44.229 Chronic tension-type headache, not intractable; Z88.5 Allergy status to narcotic agent; Z88.2 Allergy status to sulfonamides; Z88.8 Allergy status to other drugs, medicaments and biological substances; Z91.041 Radiographic dye allergy status; Z79.899 Other long term (current) drug therapy; Z79.82 Long term (current) use of aspirin; B96.89 Other specified bacterial agents as the cause of diseases classified elsewhere; I50.9 Heart failure, unspecified; I11.0 Hypertensive heart disease with heart failure; K58.9 Irritable bowel syndrome, unspecified; T50.2X5A Adverse effect of carbonic-anhydrase inhibitors, benzothiadiazides and other diuretics, initial encounter; Y92.9 Unspecified place or not applicable; E78.5 Hyperlipidemia, unspecified; E11.9 Type 2 diabetes mellitus without complications; Z68.34 Body mass index [BMI] 34.0-34.9, adult; F32.9 Major depressive disorder, single episode, unspecified; F41.9 Anxiety disorder, unspecified; E66.9 Obesity, unspecified; F41.0 Panic disorder [episodic paroxysmal anxiety]; Z90.49 Acquired absence of other specified parts of digestive tract; Z90.710 Acquired absence of both cervix and uterus; Z98.891 History of uterine scar from previous surgery
CPT/HCPCS: 36415; 71045-TC; 80048-TC; 80053-TC; 80061-TC; 80076-TC; 82570-TC; 82962-TC; 83735-TC; 83880; 83935-TC; 84100-TC; 84300-TC; 84484-TC; 85025-TC; 85730-TC; 87086-TC; 93307-TC; 97116-TC; 97530-TC; A4223; G0378; J1650; J1815; J7030

== ENCOUNTER → 2024-11-11 | Emergency (ER) | payer MEDICARE, OTHER ==
[~2024-11-11] VITALS: Ht 144.8 cm; Wt 77.1 kg
[~2024-11-11] MED LIST changes: +ASPI-1169 PO; -ASPI-1420 PO; +IV NS 0.9% 1,000 ML IV ONE; +METF-440 PO; -METO50TA16 PO; +NITR100C6 PO
[2024-11-11 04:27] LABS: BASOPHILS # (AUTO) 0.1 K/uL (0.0-0.2); EOSINOPHILS # (AUTO) 0.5 K/uL (0.0-0.7); EOSINOPHILS % (AUTO) 6.2 % (0.0-6.0); HEMATOCRIT 33 % (33-45); LYMPHOCYTES # (AUTO) 1.7 K/uL (0.8-4.8); LYMPHOCYTES % (AUTO) 19.9 % (20.0-44.0); MEAN CORPUSCULAR HEMOGLOBIN 32 PG (26.0-33.0); MEAN CORPUSCULAR HGB CONC 34 g/dl (31.0-36.0); MEAN CORPUSCULAR VOLUME 94 fL (82-100); MONOCYTES # (AUTO) 0.6 K/uL (0.1-1.30); MONOCYTES % (AUTO) 7.1 % (2.0-12.0); NEUTROPHILS # (AUTO) 5.8 K/uL (1.8-8.9); NEUTROPHILS % (AUTO) 65.8 % (43.0-81.0); PLATELET COUNT (AUTO) 394 K/uL (150-450); RED BLOOD CELL COUNT(AUTO) 3.46 MIL/uL (4.0-5.2); WHITE BLOOD COUNT (AUTO) 8.8 K/uL (4.3-11.0)
[2024-11-11 04:41] LABS: CALCIUM, SERUM 9.4 mg/dL (8.5-10.1); POTASSIUM 3.8 mmol/L (3.5-5.1)
[2024-11-11 04:54] LABS: ALBUMIN 3.6 g/dL (3.4-5.0); BILIRUBIN,TOTAL 0.2 mg/dL (0.2-1.0); TOTAL PROTEIN, SERUM 7.1 g/dL (6.4-8.2)
[2024-11-11 04:56] LABS: ADD URINE CULTURE YES; APPEARANCE,URINE CLEAR (CLEAR); BACTERIA,URINE Rare /HPF (None Seen); BILIRUBIN,URINE NEGATIVE (NEGATIVE); BLOOD, URINE NEGATIVE Ery/uL (NEGATIVE); COLOR,URINE YELLOW (YELLOW); KETONES,URINE NEGATIVE (NEGATIVE); LEUKOCYTE ESTERASE ,URINE 1+ (NEGATIVE); NITRITE, URINE NEGATIVE (NEGATIVE); PROTEIN,URINE NEGATIVE (NEGATIVE); RBC,URINE 0-2 /HPF (0-2); SQUAMOUS EPITHELIAL CELL,UR Rare /HPF (None Seen); UGLUCOSE NEGATIVE (NEGATIVE); UROBILINOGEN,URINE 0.2 EU/dL (0.2)
[2024-11-11 06:15] VITALS: BP 110/65; TEMP 98; O2SAT 94
== END | disposition home or self-care (01) ==
LOC: ER 03:35
DX: N39.0 Urinary tract infection, site not specified (principal); E87.1 Hypo-osmolality and hyponatremia; I10 Essential (primary) hypertension; M19.90 Unspecified osteoarthritis, unspecified site; Z79.82 Long term (current) use of aspirin; Z79.84 Long term (current) use of oral hypoglycemic drugs; Z79.899 Other long term (current) drug therapy; Z88.2 Allergy status to sulfonamides; Z88.5 Allergy status to narcotic agent; Z88.8 Allergy status to other drugs, medicaments and biological substances; Z91.041 Radiographic dye allergy status; Z20.822 Contact with and (suspected) exposure to COVID-19
CPT/HCPCS: 36415; 71045-TC; 80053-TC; 81001; 82962-TC; 83880; 84484-TC; 85025-TC; 87086-TC

== ENCOUNTER 2024-11-20 10:00 | Inpatient (IN) | payer MEDICARE, OTHER ==
[~2024-11-20] VITALS: Ht 134.6 cm; Wt 67.6 kg
[~2024-11-20 10:00] MED LIST changes: -IV NS 0.9% 1,000 ML IV ONE
[2024-11-20 10:34] LABS: BASOPHILS # (AUTO) 0.1 K/uL (0.0-0.2); BASOPHILS % (AUTO) 0.8 % (0.0-2.0); EOSINOPHILS # (AUTO) 0.7 K/uL (0.0-0.7); EOSINOPHILS % (AUTO) 6.4 % (0.0-6.0); HEMATOCRIT 33 % (33-45); LYMPHOCYTES # (AUTO) 1.3 K/uL (0.8-4.8); LYMPHOCYTES % (AUTO) 11.1 % (20.0-44.0); MEAN CORPUSCULAR HEMOGLOBIN 31 PG (26.0-33.0); MEAN CORPUSCULAR HGB CONC 33 g/dl (31.0-36.0); MEAN CORPUSCULAR VOLUME 95 fL (82-100); MONOCYTES # (AUTO) 0.6 K/uL (0.1-1.30); MONOCYTES % (AUTO) 5.3 % (2.0-12.0); NEUTROPHILS # (AUTO) 8.7 K/uL (1.8-8.9); NEUTROPHILS % (AUTO) 76.4 % (43.0-81.0); PLATELET COUNT (AUTO) 417 K/uL (150-450); RED BLOOD CELL COUNT(AUTO) 3.51 MIL/uL (4.0-5.2); RED CELL DISTRIBUTION WIDTH 13.7 % (11.5-15.0); WHITE BLOOD COUNT (AUTO) 11.4 K/uL (4.3-11.0)
[2024-11-20 10:44] LABS: CALCIUM, SERUM 9.8 mg/dL (8.5-10.1); CARBON DIOXIDE 31 mmol/L (21-32); CHLORIDE 89 mmol/L (98-107); GLUCOSE 100 mg/dL (74-106); POTASSIUM 3.1 mmol/L (3.5-5.1); SODIUM SERUM 126 mmol/L (136-145); UREA NITROGEN, BLOOD 23 mg/dL (7-18)
[2024-11-20 10:57] LABS: NT-PRO BNP 33 pg/mL (0-125)
[2024-11-20] MEDS ORDERED: IBUP-23 PO (13:13)
[2024-11-20 13:17] VITALS: BP 122/71; TEMP 97.5; O2SAT 99
[2024-11-20] MEDS ORDERED: AMLODIPINE BESYLATE 5 MG TABLET PO PRN (15:30)
[2024-11-20] MEDS ORDERED: MAG HYDROX/AL HYDROX/SIMETH 30 ML UDC PO PRN (15:30)
[2024-11-20] MEDS ORDERED: DEXTROSE 50%-WATER 50 ML DISP.SYRIN IV PRN (15:30)
[2024-11-20] MEDS ORDERED: Z GUARD REMEDY 4 OZ OINT TP PRN (15:30)
[2024-11-20 16:00] VITALS: BP 111/63; TEMP 97.9; O2SAT 100
[2024-11-20] MEDS: AZITHROMYCIN 250 MG TABLET PO SCH (16:26)
[2024-11-20] MEDS: ENOXAPARIN SODIUM 40 MG/0.4 ML DISP.SYRIN SQ SCH (16:27)
[2024-11-20] MEDS: DIAZEPAM 5 MG TABLET PO SCH (16:27)
[2024-11-20] MEDS: LISINOPRIL (20MG) 20 MG TABLET PO SCH (16:29)
[2024-11-20] MEDS: BLOOD SUGAR DIAGNOSTIC 1 EACH STRIP VI SCH (16:50)
[2024-11-20] MEDS: IV NS 0.9% 1,000 ML IV PRN (17:10)
[2024-11-20 20:00] VITALS: BP 112/64; TEMP 98.1; O2SAT 99
[2024-11-20 21:10] VITALS: O2SAT 98
[2024-11-20] MEDS: ALBUTEROL FS 2.5 MG/3 ML VIAL.NEB NEB PRN (21:14)
[2024-11-20 21:15] VITALS: O2SAT 98
[2024-11-20 21:20] VITALS: O2SAT 100
[2024-11-20] MEDS: POTASSIUM CHLORIDE 20 MEQ TAB.PRT.SR PO ONE (22:16)
[2024-11-21] MEDS: IBUPROFEN 200 MG TABLET PO PRN (05:18)
[2024-11-21] MEDS: MAGNESIUM HYDROXIDE 30 ML UDC PO PRN (05:41)
[2024-11-21 06:35] LABS: BASOPHILS # (AUTO) 0.1 K/uL (0.0-0.2); BASOPHILS % (AUTO) 1.1 % (0.0-2.0); EOSINOPHILS # (AUTO) 0.9 K/uL (0.0-0.7); EOSINOPHILS % (AUTO) 9.5 % (0.0-6.0); HEMATOCRIT 33 % (33-45); LYMPHOCYTES # (AUTO) 1.7 K/uL (0.8-4.8); LYMPHOCYTES % (AUTO) 16.8 % (20.0-44.0); MEAN CORPUSCULAR HEMOGLOBIN 32 PG (26.0-33.0); MEAN CORPUSCULAR HGB CONC 34 g/dl (31.0-36.0); MEAN CORPUSCULAR VOLUME 95 fL (82-100); MONOCYTES # (AUTO) 0.6 K/uL (0.1-1.30); NEUTROPHILS # (AUTO) 6.6 K/uL (1.8-8.9); NEUTROPHILS % (AUTO) 66.6 % (43.0-81.0); PLATELET COUNT (AUTO) 411 K/uL (150-450); RED BLOOD CELL COUNT(AUTO) 3.42 MIL/uL (4.0-5.2); RED CELL DISTRIBUTION WIDTH 13.8 % (11.5-15.0)
[2024-11-21 07:30] LABS: CALCIUM, SERUM 9.6 mg/dL (8.5-10.1); CREATININE 0.9 mg/dL (0.6-1.3); MAGNESIUM 2.2 mg/dL (1.8-2.4); POTASSIUM 3.6 mmol/L (3.5-5.1)
[2024-11-21 08:00] VITALS: BP 102/58; TEMP 97.7; O2SAT 100
[2024-11-21] MEDS: ASPIRIN 81 MG TAB.CHEW PO SCH (08:34)
[2024-11-21] MEDS: HYDROCHLOROTHIAZIDE 25 MG TABLET PO SCH (08:34)
[2024-11-21] MEDS: METFORMIN 500 MG TABLET PO SCH (08:34)
[2024-11-21] MEDS: INSULIN REGULAR, HUMAN 100 UNIT/ML 3 ML VIAL SQ PRN (12:46)
[2024-11-21 16:00] VITALS: BP 115/61; TEMP 98.2; O2SAT 100
[2024-11-21 20:00] VITALS: BP 124/63; TEMP 98.2; O2SAT 100
[2024-11-21] MEDS: *INSULIN REGULAR(HUMULIN R)HUM 100 UNIT/ML VIAL SQ PRN (21:14)
[2024-11-21] MEDS: ACETAMINOPHEN 325 MG TABLET PO PRN (21:22)
[2024-11-22] VITALS: BP 105/56; TEMP 98.2; O2SAT 98
[2024-11-22 04:00] VITALS: BP 98/53; TEMP 98.6; O2SAT 97
[2024-11-22 06:22] LABS: BASOPHILS # (AUTO) 0.1 K/uL (0.0-0.2); BASOPHILS % (AUTO) 1.1 % (0.0-2.0); EOSINOPHILS # (AUTO) 0.9 K/uL (0.0-0.7); EOSINOPHILS % (AUTO) 10.6 % (0.0-6.0); HEMATOCRIT 30 % (33-45); HEMOGLOBIN 9.9 g/dL (11.5-14.8); LYMPHOCYTES # (AUTO) 2.1 K/uL (0.8-4.8); LYMPHOCYTES % (AUTO) 24.4 % (20.0-44.0); MEAN CORPUSCULAR HEMOGLOBIN 32 PG (26.0-33.0); MEAN CORPUSCULAR HGB CONC 33 g/dl (31.0-36.0); MEAN CORPUSCULAR VOLUME 96 fL (82-100); MONOCYTES # (AUTO) 0.5 K/uL (0.1-1.30); MONOCYTES % (AUTO) 5.3 % (2.0-12.0); NEUTROPHILS # (AUTO) 5.2 K/uL (1.8-8.9); NEUTROPHILS % (AUTO) 58.6 % (43.0-81.0); PLATELET COUNT (AUTO) 373 K/uL (150-450); RED BLOOD CELL COUNT(AUTO) 3.08 MIL/uL (4.0-5.2); RED CELL DISTRIBUTION WIDTH 13.9 % (11.5-15.0); WHITE BLOOD COUNT (AUTO) 8.8 K/uL (4.3-11.0)
[2024-11-22 06:42] LABS: CALCIUM, SERUM 8.9 mg/dL (8.5-10.1); MAGNESIUM 2.3 mg/dL (1.8-2.4); PHOSPHORUS 3.2 mg/dL (2.5-4.9); POTASSIUM 4.2 mmol/L (3.5-5.1)
[2024-11-22 08:00] VITALS: BP 111/64; TEMP 97.5; O2SAT 97
[2024-11-22 09:13] LABS: THYROID STIMULATING HORMONE 1.09 uIU/mL (0.358-3.74); URIC ACID 4.1 mg/dL (2.6-7.2)
[2024-11-22 12:00] VITALS: BP 112/60; TEMP 97.9; O2SAT 95
[2024-11-22 16:00] VITALS: BP 129/63; TEMP 97.6; O2SAT 96
[2024-11-23 07:00] VITALS: BP 124/61; TEMP 97.5; O2SAT 95
[2024-11-23 09:17] LABS: BASOPHILS # (AUTO) 0.1 K/uL (0.0-0.2); BASOPHILS % (AUTO) 1.2 % (0.0-2.0); EOSINOPHILS # (AUTO) 0.7 K/uL (0.0-0.7); EOSINOPHILS % (AUTO) 9.5 % (0.0-6.0); HEMATOCRIT 35 % (33-45); HEMOGLOBIN 11.4 g/dL (11.5-14.8); LYMPHOCYTES # (AUTO) 1.9 K/uL (0.8-4.8); LYMPHOCYTES % (AUTO) 26.5 % (20.0-44.0); MEAN CORPUSCULAR HEMOGLOBIN 32 PG (26.0-33.0); MEAN CORPUSCULAR HGB CONC 33 g/dl (31.0-36.0); MEAN CORPUSCULAR VOLUME 96 fL (82-100); MONOCYTES # (AUTO) 0.5 K/uL (0.1-1.30); MONOCYTES % (AUTO) 7.3 % (2.0-12.0); NEUTROPHILS # (AUTO) 4.1 K/uL (1.8-8.9); NEUTROPHILS % (AUTO) 55.5 % (43.0-81.0); PLATELET COUNT (AUTO) 389 K/uL (150-450); RED BLOOD CELL COUNT(AUTO) 3.63 MIL/uL (4.0-5.2); RED CELL DISTRIBUTION WIDTH 13.9 % (11.5-15.0); WHITE BLOOD COUNT (AUTO) 7.3 K/uL (4.3-11.0)
[2024-11-23 09:24] LABS: ALBUMIN 3.1 g/dL (3.4-5.0); BILIRUBIN,TOTAL 0.2 mg/dL (0.2-1.0); CALCIUM, SERUM 9.4 mg/dL (8.5-10.1); CREATININE 0.8 mg/dL (0.6-1.3); POTASSIUM 4.3 mmol/L (3.5-5.1); TOTAL PROTEIN, SERUM 6.7 g/dL (6.4-8.2)
[2024-11-23] MEDS ORDERED: AZIT250T PO (10:09)
[2024-11-23 11:30] VITALS: BP 145/70; TEMP 97.5; O2SAT 100
[2024-11-23] MEDS: ONDANSETRON HCL/PF 4 MG/2 ML VIAL IVP PRN (15:30)
[2024-11-23 16:00] VITALS: BP 142/73; TEMP 97.9; O2SAT 98
[2024-11-23 16:29] VITALS: TEMP 97.9
[2024-11-23 16:59] VITALS: BP 144/83
== END 2024-11-24 | DRG 202 ==
LOC: ER 10:05 → TELE 11:59
PROVIDERS: ADMIT Internal Medicine; ATTEND Internal Medicine
DX: J20.8 Acute bronchitis due to other specified organisms (principal); E87.1 Hypo-osmolality and hyponatremia; E86.1 Hypovolemia; E86.0 Dehydration; I11.0 Hypertensive heart disease with heart failure; I50.9 Heart failure, unspecified; Z79.82 Long term (current) use of aspirin; I10 Essential (primary) hypertension; M19.90 Unspecified osteoarthritis, unspecified site; R26.9 Unspecified abnormalities of gait and mobility; M89.8X9 Other specified disorders of bone, unspecified site; T50.2X5A Adverse effect of carbonic-anhydrase inhibitors, benzothiadiazides and other diuretics, initial encounter; G44.209 Tension-type headache, unspecified, not intractable; Y92.9 Unspecified place or not applicable; E55.9 Vitamin D deficiency, unspecified; Z88.5 Allergy status to narcotic agent; Z88.2 Allergy status to sulfonamides; Z88.8 Allergy status to other drugs, medicaments and biological substances; Z91.041 Radiographic dye allergy status; Z79.84 Long term (current) use of oral hypoglycemic drugs; Z79.899 Other long term (current) drug therapy; F32.A Depression, unspecified; E78.5 Hyperlipidemia, unspecified; E11.9 Type 2 diabetes mellitus without complications; Z90.710 Acquired absence of both cervix and uterus; Z90.49 Acquired absence of other specified parts of digestive tract; Z98.891 History of uterine scar from previous surgery; F41.9 Anxiety disorder, unspecified; E66.9 Obesity, unspecified; K58.9 Irritable bowel syndrome, unspecified; Z68.37 Body mass index [BMI] 37.0-37.9, adult; D64.9 Anemia, unspecified; E86.9 Volume depletion, unspecified; R79.89 Other specified abnormal findings of blood chemistry
CPT/HCPCS: 36415; 70450-TC; 71045-TC; 80048-TC; 80053-TC; 82962-TC; 83735-TC; 83880; 83921; 84100-TC; 84425; 84443-TC; 84484-TC; 84550-TC; 85025-TC; 87081-TC; 94799-TC; 97110-TC; 97116-TC; 97530-TC; A4223; G0378; J1650; J1815; J2405; J7030

== ENCOUNTER 2024-11-24 21:24 | Inpatient (IN) | payer MEDICARE, OTHER ==
[~2024-11-24] VITALS: Ht 160 cm; Wt 72.6 kg
[~2024-11-24 21:24] MED LIST changes: -ACET-2605 PO; +AZIT250T PO; -HYDR25TA4 PO; +IBUP-23 PO; -NITR100C6 PO
[2024-11-24 22:22] LABS: BASOPHILS # (AUTO) 0.1 K/uL (0.0-0.2); BASOPHILS % (AUTO) 1.4 % (0.0-2.0); EOSINOPHILS # (AUTO) 0.6 K/uL (0.0-0.7); EOSINOPHILS % (AUTO) 6.9 % (0.0-6.0); HEMATOCRIT 34 % (33-45); HEMOGLOBIN 11.4 g/dL (11.5-14.8); LYMPHOCYTES # (AUTO) 1.9 K/uL (0.8-4.8); LYMPHOCYTES % (AUTO) 20.3 % (20.0-44.0); MEAN CORPUSCULAR HEMOGLOBIN 32 PG (26.0-33.0); MEAN CORPUSCULAR HGB CONC 33 g/dl (31.0-36.0); MEAN CORPUSCULAR VOLUME 95 fL (82-100); MONOCYTES # (AUTO) 0.6 K/uL (0.1-1.30); MONOCYTES % (AUTO) 6.9 % (2.0-12.0); NEUTROPHILS % (AUTO) 64.5 % (43.0-81.0); PLATELET COUNT (AUTO) 405 K/uL (150-450); RED BLOOD CELL COUNT(AUTO) 3.57 MIL/uL (4.0-5.2); RED CELL DISTRIBUTION WIDTH 13.7 % (11.5-15.0); WHITE BLOOD COUNT (AUTO) 9.4 K/uL (4.3-11.0)
[2024-11-24 22:30] LABS: CALCIUM, SERUM 9.7 mg/dL (8.5-10.1); CREATININE 0.9 mg/dL (0.6-1.3); POTASSIUM 4.8 mmol/L (3.5-5.1)
[2024-11-24 23:04] LABS: APPEARANCE,URINE CLEAR (CLEAR); BILIRUBIN,URINE NEGATIVE (NEGATIVE); BLOOD, URINE NEGATIVE Ery/uL (NEGATIVE); COLOR,URINE YELLOW (YELLOW); KETONES,URINE TRACE mg/dL (NEGATIVE); LEUKOCYTE ESTERASE ,URINE NEGATIVE (NEGATIVE); NITRITE, URINE NEGATIVE (NEGATIVE); PROTEIN,URINE NEGATIVE (NEGATIVE); UGLUCOSE NEGATIVE (NEGATIVE); UROBILINOGEN,URINE 0.2 EU/dL (0.2)
[2024-11-24 23:43] LABS: ADD URINE CULTURE NO; RBC,URINE 0-2 /HPF (0-2); SQUAMOUS EPITHELIAL CELL,UR Few /HPF (None Seen)
[2024-11-24 23:44] LABS: BACTERIA,URINE Few /HPF (None Seen)
[2024-11-25] MEDS ORDERED: DEXTROSE 50%-WATER 50 ML DISP.SYRIN IV PRN (01:00)
[2024-11-25] MEDS ORDERED: ONDANSETRON HCL/PF 4 MG/2 ML VIAL IVP PRN (01:00)
[2024-11-25] MEDS ORDERED: Z GUARD REMEDY 4 OZ OINT TP PRN (01:00)
[2024-11-25] MEDS ORDERED: MAG HYDROX/AL HYDROX/SIMETH 30 ML UDC PO PRN (01:00)
[2024-11-25] MEDS ORDERED: MAGNESIUM HYDROXIDE 30 ML UDC PO PRN (01:00)
[2024-11-25 02:22] VITALS: BP 122/66; TEMP 97.7; O2SAT 99
[2024-11-25] MEDS: IV NS 0.9% 1,000 ML IV PRN (03:10)
[2024-11-25] MEDS: BLOOD SUGAR DIAGNOSTIC 1 EACH STRIP IN SCH (06:36)
[2024-11-25] MEDS: INSULIN REGULAR, HUMAN 100 UNIT/ML 3 ML VIAL SQ PRN (06:37)
[2024-11-25 08:00] VITALS: BP 95/53; TEMP 98.2; O2SAT 98
[2024-11-25 08:45] VITALS: BP_SYST 85; BP_SYST 93; BP_SYST 98; BP_DIAS 45; BP_DIAS 48; BP_DIAS 78
[2024-11-25] MEDS: LISINOPRIL (20MG) 20 MG TABLET PO SCH (08:58)
[2024-11-25 16:10] VITALS: BP 112/64; TEMP 97.9; O2SAT 99
[2024-11-25] MEDS: ACETAMINOPHEN 325 MG TABLET PO PRN (17:12)
[2024-11-25 20:00] VITALS: BP 97/55; TEMP 98.4; O2SAT 100
[2024-11-26 08:00] VITALS: BP 104/62; TEMP 98.2; O2SAT 97
[2024-11-26 10:06] LABS: BASOPHILS # (AUTO) 0.1 K/uL (0.0-0.2); BASOPHILS % (AUTO) 1.1 % (0.0-2.0); EOSINOPHILS # (AUTO) 0.7 K/uL (0.0-0.7); EOSINOPHILS % (AUTO) 9.5 % (0.0-6.0); HEMATOCRIT 31 % (33-45); HEMOGLOBIN 10.3 g/dL (11.5-14.8); LYMPHOCYTES # (AUTO) 1.7 K/uL (0.8-4.8); LYMPHOCYTES % (AUTO) 24.5 % (20.0-44.0); MEAN CORPUSCULAR HEMOGLOBIN 32 PG (26.0-33.0); MEAN CORPUSCULAR HGB CONC 33 g/dl (31.0-36.0); MEAN CORPUSCULAR VOLUME 97 fL (82-100); MONOCYTES # (AUTO) 0.5 K/uL (0.1-1.30); MONOCYTES % (AUTO) 7.2 % (2.0-12.0); NEUTROPHILS % (AUTO) 57.7 % (43.0-81.0); PLATELET COUNT (AUTO) 344 K/uL (150-450); RED CELL DISTRIBUTION WIDTH 13.9 % (11.5-15.0)
[2024-11-26] MEDS: DIAZEPAM 5 MG TABLET PO STA (12:10)
[2024-11-26 13:16] LABS: CREATININE 0.6 mg/dL (0.6-1.3); MAGNESIUM 2.6 mg/dL (1.8-2.4); PHOSPHORUS 3.5 mg/dL (2.5-4.9); POTASSIUM 4.8 mmol/L (3.5-5.1)
[2024-11-26 14:53] LABS: THYROID STIMULATING HORMONE 1.11 uIU/mL (0.358-3.74)
[2024-11-26 16:00] VITALS: BP 126/69; TEMP 98.4; O2SAT 99
[2024-11-26 20:00] VITALS: BP 133/87; TEMP 98.2; O2SAT 98
[2024-11-26] MEDS: IBUPROFEN 600 MG TABLET PO PRN (20:44)
[2024-11-26 21:56] VITALS: BP 133/87; TEMP 98.2; O2SAT 98
[2024-11-26] MEDS: ALPRAZOLAM 0.25 MG TABLET PO ONE (21:58)
[2024-11-26] MEDS: DIAZEPAM 2 MG TABLET PO ONE (22:52)
[2024-11-27] MEDS: ENOXAPARIN SODIUM 40 MG/0.4 ML DISP.SYRIN SQ SCH (00:40)
[2024-11-27 08:00] VITALS: BP 141/71; TEMP 97.5; O2SAT 100
[2024-11-27] MEDS: AMLODIPINE BESYLATE 5 MG TABLET PO PRN (12:38)
[2024-11-27] MEDS: DIAZEPAM 5 MG TABLET PO ONE ×3 (15:01→21:25)
[2024-11-27 16:06] VITALS: BP 142/76; TEMP 98.1; O2SAT 92
[2024-11-27 20:00] VITALS: BP 148/75; TEMP 98.2; O2SAT 98
[2024-11-28 06:39] VITALS: TEMP 98.1
[2024-11-28 14:30] VITALS: BP 155/65
[2024-12-01 09:07] LABS: VITAMIN B1 THIAMINE,WB 88.9 nmol/L (66.5-200.0)
== END 2024-11-28 15:15 | disposition home health service (06) | DRG 641 ==
LOC: ER 21:26 → TELE 23:16 → MED 11-25 05:44
PROVIDERS: ADMIT Nurse Practitioner Acute Care; ATTEND Nurse Practitioner Acute Care
DX: E86.0 Dehydration (principal); E11.9 Type 2 diabetes mellitus without complications; E78.5 Hyperlipidemia, unspecified; I11.0 Hypertensive heart disease with heart failure; E66.9 Obesity, unspecified; F32.A Depression, unspecified; F41.9 Anxiety disorder, unspecified; G43.909 Migraine, unspecified, not intractable, without status migrainosus; I25.10 Atherosclerotic heart disease of native coronary artery without angina pectoris; I50.9 Heart failure, unspecified; K58.9 Irritable bowel syndrome, unspecified; M19.90 Unspecified osteoarthritis, unspecified site; M81.0 Age-related osteoporosis without current pathological fracture; Z79.84 Long term (current) use of oral hypoglycemic drugs; Z88.2 Allergy status to sulfonamides; Z90.49 Acquired absence of other specified parts of digestive tract; Z90.710 Acquired absence of both cervix and uterus; Z68.28 Body mass index [BMI] 28.0-28.9, adult; Z20.822 Contact with and (suspected) exposure to COVID-19; R53.1 Weakness
CPT/HCPCS: 36415; 71045-TC; 80048-TC; 81001; 82607-TC; 82962-TC; 83735-TC; 83880; 83921; 84100-TC; 84425; 84443-TC; 84484-TC; 85025-TC; 92526; 92611-TC; 97110-TC; 97116-TC; 97530-TC; 97535-TC; A4223; G0378; J1650; J1815; J7030

== ENCOUNTER 2024-12-05 16:18 | Emergency (ER) | payer MEDICARE, OTHER ==
[~2024-12-05] VITALS: Ht 160 cm; Wt 68.0 kg
[2024-12-05 16:23] VITALS: TEMP 97.9
[2024-12-05] MEDS ORDERED: ACETAMINOPHEN ES 500 MG TABLET ONE (16:48)
[2024-12-05] MEDS ORDERED: diphenhydrAMINE HCL 50 MG/ML VIAL ONE (16:48)
[2024-12-05] MEDS: diphenhydrAMINE HCL 50 MG/ML VIAL IV ONE (17:08)
[2024-12-05 17:09] LABS: BASOPHILS # (AUTO) 0.1 K/uL (0.0-0.2); BASOPHILS % (AUTO) 1.1 % (0.0-2.0); EOSINOPHILS # (AUTO) 0.3 K/uL (0.0-0.7); HEMATOCRIT 31 % (33-45); HEMOGLOBIN 10.5 g/dL (11.5-14.8); LYMPHOCYTES # (AUTO) 1.5 K/uL (0.8-4.8); LYMPHOCYTES % (AUTO) 17.3 % (20.0-44.0); MEAN CORPUSCULAR HEMOGLOBIN 33 PG (26.0-33.0); MEAN CORPUSCULAR HGB CONC 35 g/dl (31.0-36.0); MEAN CORPUSCULAR VOLUME 95 fL (82-100); MONOCYTES # (AUTO) 0.5 K/uL (0.1-1.30); NEUTROPHILS # (AUTO) 6.1 K/uL (1.8-8.9); NEUTROPHILS % (AUTO) 71.6 % (43.0-81.0); PLATELET COUNT (AUTO) 358 K/uL (150-450); RED BLOOD CELL COUNT(AUTO) 3.21 MIL/uL (4.0-5.2); RED CELL DISTRIBUTION WIDTH 14.1 % (11.5-15.0); WHITE BLOOD COUNT (AUTO) 8.5 K/uL (4.3-11.0)
[2024-12-05] MEDS: ACETAMINOPHEN ES 500 MG TABLET PO ONE (17:09)
[2024-12-05] MEDS: METOCLOPRAMIDE HCL 10 MG/2 ML VIAL IV ONE (17:09)
[2024-12-05 17:19] LABS: CALCIUM, SERUM 9.6 mg/dL (8.5-10.1); CARBON DIOXIDE 26 mmol/L (21-32); CHLORIDE 95 mmol/L (98-107); GLUCOSE 95 mg/dL (74-106); SODIUM SERUM 130 mmol/L (136-145); UREA NITROGEN, BLOOD 24 mg/dL (7-18)
[2024-12-05 17:33] LABS: ALANINE AMINOTRANSFERASE 16 U/L (12-78); ALBUMIN 3.7 g/dL (3.4-5.0); ALKALINE PHOSPHATASE 60 U/L (46-116); ASPARTATE AMINOTRANSFERASE 12 U/L (15-37); BILIRUBIN,DIRECT 0.1 mg/dL (0.0-0.2); BILIRUBIN,TOTAL 0.2 mg/dL (0.2-1.0); NT-PRO BNP 34 pg/mL (0-125); TOTAL PROTEIN, SERUM 7.2 g/dL (6.4-8.2)
[2024-12-05 18:40] VITALS: BP 113/73; O2SAT 96
== END 2024-12-05 20:51 ==
LOC: ER 16:22
DX: R51.9 Headache, unspecified (principal); I10 Essential (primary) hypertension; E11.9 Type 2 diabetes mellitus without complications; M19.90 Unspecified osteoarthritis, unspecified site; Z79.82 Long term (current) use of aspirin; Z79.84 Long term (current) use of oral hypoglycemic drugs; Z79.899 Other long term (current) drug therapy; Z88.2 Allergy status to sulfonamides; Z88.5 Allergy status to narcotic agent; Z88.8 Allergy status to other drugs, medicaments and biological substances; Z90.49 Acquired absence of other specified parts of digestive tract; Z91.041 Radiographic dye allergy status
CPT/HCPCS: 99285; 96374; 70450; 71045; 93005; 85025; 80048; 80076; 36415; 84484; 83880; J1200

== ENCOUNTER 2024-12-16 19:18 | Emergency (ER) | payer MEDICARE, OTHER ==
[~2024-12-16] VITALS: Ht 154.9 cm; Wt 74.8 kg
[2024-12-16 20:01] LABS: BASOPHILS # (AUTO) 0.1 K/uL (0.0-0.2); BASOPHILS % (AUTO) 1.2 % (0.0-2.0); EOSINOPHILS # (AUTO) 0.8 K/uL (0.0-0.7); EOSINOPHILS % (AUTO) 7.7 % (0.0-6.0); HEMATOCRIT 32 % (33-45); HEMOGLOBIN 10.9 g/dL (11.5-14.8); LYMPHOCYTES # (AUTO) 2.1 K/uL (0.8-4.8); LYMPHOCYTES % (AUTO) 20.2 % (20.0-44.0); MEAN CORPUSCULAR HEMOGLOBIN 33 PG (26.0-33.0); MEAN CORPUSCULAR HGB CONC 34 g/dl (31.0-36.0); MEAN CORPUSCULAR VOLUME 97 fL (82-100); MONOCYTES # (AUTO) 0.5 K/uL (0.1-1.30); MONOCYTES % (AUTO) 5.2 % (2.0-12.0); NEUTROPHILS # (AUTO) 6.8 K/uL (1.8-8.9); NEUTROPHILS % (AUTO) 65.7 % (43.0-81.0); PLATELET COUNT (AUTO) 472 K/uL (150-450); RED BLOOD CELL COUNT(AUTO) 3.33 MIL/uL (4.0-5.2); RED CELL DISTRIBUTION WIDTH 14.7 % (11.5-15.0); WHITE BLOOD COUNT (AUTO) 10.4 K/uL (4.3-11.0)
[2024-12-16 20:12] LABS: CARBON DIOXIDE 28 mmol/L (21-32); CHLORIDE 96 mmol/L (98-107); CREATININE 0.8 mg/dL (0.6-1.3); GLUCOSE 102 mg/dL (74-106); POTASSIUM 4.6 mmol/L (3.5-5.1); SODIUM SERUM 131 mmol/L (136-145); UREA NITROGEN, BLOOD 20 mg/dL (7-18)
[2024-12-16 20:13] LABS: SERUM AMMONIA 15 umol/L (11-32)
[2024-12-16 20:17] LABS: ALANINE AMINOTRANSFERASE 18 U/L (12-78); ALBUMIN 3.7 g/dL (3.4-5.0); ALKALINE PHOSPHATASE 72 U/L (46-116); ASPARTATE AMINOTRANSFERASE 15 U/L (15-37); BILIRUBIN,TOTAL 0.2 mg/dL (0.2-1.0); SALICYLATE 7.3 mg/dL (2.8-20.0); TOTAL PROTEIN, SERUM 7.5 g/dL (6.4-8.2)
[2024-12-16 20:19] LABS: LACTIC ACID 0.7 mmol/L (0.4-2.0)
[2024-12-16 20:22] LABS: ACETAMINOPHEN <10 ug/ml (10-30); ALCOHOL, BLOOD < 3 mg/dL (0-10)
[2024-12-16 20:36] LABS: INR 1.01 (0.91-1.10); PARTIAL THROMBOPLASTIN TIME 28.5 SEC (24.3-34.3); PROTHROMBIN TIME 10.7 SECS (9.2-11.1)
[2024-12-16] MEDS ORDERED: METOCLOPRAMIDE HCL 10 MG/2 ML VIAL ONE (20:44)
[2024-12-16] MEDS ORDERED: diphenhydrAMINE HCL 50 MG/ML VIAL ONE (20:44)
[2024-12-16] MEDS ORDERED: ACETAMINOPHEN ES 500 MG TABLET ONE (20:45)
[2024-12-16] MEDS: diphenhydrAMINE HCL 50 MG/ML VIAL IV ONE (21:01)
[2024-12-16] MEDS: METOCLOPRAMIDE HCL 10 MG/2 ML VIAL IV ONE (21:02)
[2024-12-16] MEDS: ACETAMINOPHEN ES 500 MG TABLET PO ONE (21:02)
[2024-12-16 21:05] LABS: APPEARANCE,URINE CLEAR (CLEAR); BILIRUBIN,URINE NEGATIVE (NEGATIVE); BLOOD, URINE TRACE-INTA Ery/uL (NEGATIVE); COLOR,URINE YELLOW (YELLOW); KETONES,URINE NEGATIVE (NEGATIVE); LEUKOCYTE ESTERASE ,URINE 1+ (NEGATIVE); NITRITE, URINE NEGATIVE (NEGATIVE); PROTEIN,URINE NEGATIVE (NEGATIVE); UGLUCOSE NEGATIVE (NEGATIVE); UROBILINOGEN,URINE 0.2 EU/dL (0.2)
[2024-12-16 21:12] LABS: ADD URINE CULTURE YES; BACTERIA,URINE Few /HPF (None Seen); SQUAMOUS EPITHELIAL CELL,UR Few /HPF (None Seen)
[2024-12-16 21:14] LABS: AMPHETAMINE, URINE NEGATIVE (NEGATIVE); BARBITURATE, URINE NEGATIVE (NEGATIVE); CANNABINOID, URINE NEGATIVE (NEGATIVE); COCCAINE, URINE NEGATIVE (NEGATIVE); OPIATE, URINE NEGATIVE (NEGATIVE); PHENCYCLIDINE SCREEN,URINE NEGATIVE (NEGATIVE)
[2024-12-16 21:29] LABS: BENZODIAZEPINE, URINE POSITIVE (NEGATIVE)
[2024-12-16 23:04] VITALS: BP 138/70; TEMP 98.4; O2SAT 100
== END 2024-12-16 23:05 ==
LOC: ER 19:20
DX: R51.9 Headache, unspecified (principal); D18.1 Lymphangioma, any site; I10 Essential (primary) hypertension; E11.9 Type 2 diabetes mellitus without complications; M19.90 Unspecified osteoarthritis, unspecified site; Z79.82 Long term (current) use of aspirin; Z79.84 Long term (current) use of oral hypoglycemic drugs; Z79.899 Other long term (current) drug therapy; Z88.2 Allergy status to sulfonamides; Z88.5 Allergy status to narcotic agent; Z88.8 Allergy status to other drugs, medicaments and biological substances; Z90.49 Acquired absence of other specified parts of digestive tract; Z91.041 Radiographic dye allergy status; Z86.2 Personal history of diseases of the blood and blood-forming organs and certain disorders involving the immune mechanism
CPT/HCPCS: 36415; 70450-TC; 71045-TC; 80048-TC; 80076-TC; 81001; 82140-TC; 83605-TC; 84443-TC; 84484-TC; 85025-TC; 85730-TC; 87086-TC; G0480; J1200; J2765

== ENCOUNTER 2024-12-18 17:08 | Inpatient (IN) | payer MEDICARE, OTHER ==
[~2024-12-18] VITALS: Ht 149.9 cm; Wt 69.5 kg
[2024-12-18] MEDS ORDERED: ACETAMINOPHEN ES 500 MG TABLET ONE (17:57)
[2024-12-18] MEDS ORDERED: SUMATRIPTAN SUCCINATE 6 MG/0.5 ML VIAL SQ ONE (17:57)
[2024-12-18] MEDS ORDERED: PROCHLORPERAZINE EDISYLATE 10 MG/2 ML VIAL ONE (17:57)
[2024-12-18] MEDS: SUMATRIPTAN SUCCINATE 6 MG/0.5 ML VIAL SQ ONE (18:00)
[2024-12-18] MEDS: ACETAMINOPHEN ES 500 MG TABLET PO ONE (18:00)
[2024-12-18] MEDS: PROCHLORPERAZINE EDISYLATE 10 MG/2 ML VIAL IM ONE (18:18)
[2024-12-18 18:45] LABS: BASOPHILS # (AUTO) 0.1 K/uL (0.0-0.2); BASOPHILS % (AUTO) 0.9 % (0.0-2.0); EOSINOPHILS # (AUTO) 0.3 K/uL (0.0-0.7); EOSINOPHILS % (AUTO) 3.8 % (0.0-6.0); HEMATOCRIT 33 % (33-45); LYMPHOCYTES # (AUTO) 1.9 K/uL (0.8-4.8); LYMPHOCYTES % (AUTO) 20.7 % (20.0-44.0); MEAN CORPUSCULAR HEMOGLOBIN 32 PG (26.0-33.0); MEAN CORPUSCULAR HGB CONC 33 g/dl (31.0-36.0); MEAN CORPUSCULAR VOLUME 96 fL (82-100); MONOCYTES # (AUTO) 0.6 K/uL (0.1-1.30); MONOCYTES % (AUTO) 6.1 % (2.0-12.0); NEUTROPHILS # (AUTO) 6.2 K/uL (1.8-8.9); NEUTROPHILS % (AUTO) 68.5 % (43.0-81.0); PLATELET COUNT (AUTO) 452 K/uL (150-450); WHITE BLOOD COUNT (AUTO) 9.1 K/uL (4.3-11.0)
[2024-12-18 18:54] LABS: CALCIUM, SERUM 9.6 mg/dL (8.5-10.1); CHLORIDE 95 mmol/L (98-107); GLUCOSE 96 mg/dL (74-106); POTASSIUM 4.2 mmol/L (3.5-5.1); SODIUM SERUM 128 mmol/L (136-145); UREA NITROGEN, BLOOD 20 mg/dL (7-18)
[2024-12-18 19:11] LABS: CARBON DIOXIDE 27 mmol/L (21-32)
[2024-12-18] MEDS ORDERED: MAG HYDROX/AL HYDROX/SIMETH 30 ML UDC PO PRN (21:00)
[2024-12-18] MEDS ORDERED: ACETAMINOPHEN 325 MG TABLET PO PRN (21:00)
[2024-12-18] MEDS ORDERED: ONDANSETRON HCL/PF 4 MG/2 ML VIAL IVP PRN (21:00)
[2024-12-18] MEDS ORDERED: SUMATRIPTAN SUCCINATE 25 MG TABLET PO PRN (21:00)
[2024-12-18] MEDS ORDERED: MAGNESIUM HYDROXIDE 30 ML UDC PO PRN (21:00)
[2024-12-18 22:00] VITALS: BP 132/68; TEMP 97.5; O2SAT 96
[2024-12-19] MEDS: ZOLPIDEM TARTRATE 5 MG TABLET PO PRN (00:09)
[2024-12-19] MEDS ORDERED: SUMATRIPTAN SUCCINATE 25 MG TABLET ONE (00:29)
[2024-12-19] MEDS: IV NS 0.9% 1,000 ML IV PRN (02:56)
[2024-12-19 06:39] LABS: BASOPHILS # (AUTO) 0.1 K/uL (0.0-0.2); EOSINOPHILS # (AUTO) 0.6 K/uL (0.0-0.7); EOSINOPHILS % (AUTO) 8.4 % (0.0-6.0); HEMATOCRIT 33 % (33-45); HEMOGLOBIN 10.8 g/dL (11.5-14.8); LYMPHOCYTES # (AUTO) 1.7 K/uL (0.8-4.8); LYMPHOCYTES % (AUTO) 23.9 % (20.0-44.0); MEAN CORPUSCULAR HEMOGLOBIN 32 PG (26.0-33.0); MEAN CORPUSCULAR HGB CONC 33 g/dl (31.0-36.0); MEAN CORPUSCULAR VOLUME 96 fL (82-100); MONOCYTES # (AUTO) 0.5 K/uL (0.1-1.30); MONOCYTES % (AUTO) 6.8 % (2.0-12.0); NEUTROPHILS # (AUTO) 4.1 K/uL (1.8-8.9); NEUTROPHILS % (AUTO) 59.9 % (43.0-81.0); PLATELET COUNT (AUTO) 442 K/uL (150-450); RED BLOOD CELL COUNT(AUTO) 3.38 MIL/uL (4.0-5.2); RED CELL DISTRIBUTION WIDTH 14.3 % (11.5-15.0); WHITE BLOOD COUNT (AUTO) 6.9 K/uL (4.3-11.0)
[2024-12-19 06:59] LABS: CALCIUM, SERUM 9.4 mg/dL (8.5-10.1); MAGNESIUM 2.1 mg/dL (1.8-2.4); PHOSPHORUS 4.3 mg/dL (2.5-4.9); POTASSIUM 3.7 mmol/L (3.5-5.1)
[2024-12-19 07:02] LABS: THYROID STIMULATING HORMONE 0.92 uIU/mL (0.358-3.74)
[2024-12-19 08:00] VITALS: BP 114/67; TEMP 98.2; O2SAT 96
[2024-12-19] MEDS ORDERED: HYDR25TA4 PO (08:22)
[2024-12-19 10:25] LABS: C-REACTIVE PROTEIN 1.09 mg/dL (0.0-0.30)
[2024-12-19] MEDS ORDERED: Magnesium 1 GM/2 ML VIAL IV ONE (11:00)
[2024-12-19] MEDS: VALPROATE 250 MG in IV D5W 100 ML IV ONE (11:00)
[2024-12-19] MEDS: Magnesium 1GM/D5W 100ML PREMIX 100 ML IV SCH (12:00)
[2024-12-19] MEDS: SUMATRIPTAN SUCCINATE 25 MG TABLET PO PRN (12:02)
[2024-12-19] MEDS ORDERED: METFORMIN 500 MG TABLET PO SCH (13:30)
[2024-12-19] MEDS: LISINOPRIL (20MG) 20 MG TABLET PO SCH ×2 (13:41→20:11)
[2024-12-19] MEDS: DIAZEPAM 5 MG TABLET PO SCH ×2 (13:41→20:11)
[2024-12-19] MEDS: ASPIRIN 81 MG TAB.CHEW PO SCH (13:41)
[2024-12-19] MEDS: HYDROCHLOROTHIAZIDE 25 MG TABLET PO SCH (13:41)
[2024-12-19 16:00] VITALS: BP 146/76; TEMP 98.1; O2SAT 96
[2024-12-19] MEDS: IBUPROFEN 200 MG TABLET PO PRN (16:35)
[2024-12-19 20:00] VITALS: BP 163/83; TEMP 98
[2024-12-19] MEDS: ACETAMINOPHEN ES 500 MG TABLET PO PRN (22:17)
[2024-12-19 22:30] VITALS: BP 154/67
[2024-12-19 22:45] VITALS: BP 145/87
[2024-12-20 02:25] VITALS: BP 144/83; O2SAT 98
[2024-12-20 06:57] LABS: APPEARANCE,URINE CLEAR (CLEAR); BILIRUBIN,URINE NEGATIVE (NEGATIVE); BLOOD, URINE NEGATIVE Ery/uL (NEGATIVE); COLOR,URINE YELLOW (YELLOW); KETONES,URINE NEGATIVE (NEGATIVE); LEUKOCYTE ESTERASE ,URINE TRACE (NEGATIVE); NITRITE, URINE NEGATIVE (NEGATIVE); PH,URINE 7.5 (5.0-8.0); PROTEIN,URINE NEGATIVE (NEGATIVE); UGLUCOSE NEGATIVE (NEGATIVE); UROBILINOGEN,URINE 0.2 EU/dL (0.2)
[2024-12-20 07:30] VITALS: BP 128/75; TEMP 97.9; O2SAT 99
[2024-12-20 07:31] LABS: ADD URINE CULTURE NO; BACTERIA,URINE Rare /HPF (None Seen); RBC,URINE 0-2 /HPF (0-2); WBC,URINE 0-2 /HPF (0-3)
[2024-12-20] MEDS: Z GUARD REMEDY 4 OZ OINT TP PRN (11:37)
[2024-12-20 16:14] VITALS: BP 156/85; TEMP 97.9; O2SAT 96
[2024-12-20] MEDS: AMLODIPINE BESYLATE 5 MG TABLET PO PRN (16:35)
[2024-12-20 20:00] VITALS: BP 125/75; TEMP 97.6; O2SAT 96
[2024-12-21 07:30] VITALS: BP 119/72; TEMP 97.3; O2SAT 95
[2024-12-21 08:49] VITALS: BP 119/72
[2024-12-21 14:15] VITALS: TEMP 98
== END 2024-12-21 14:35 | disposition home health service (06) | DRG 102 ==
LOC: ER 17:12 → MED 20:46
PROVIDERS: ADMIT Nurse Practitioner Family; ATTEND Internal Medicine
DX: G44.209 Tension-type headache, unspecified, not intractable (principal); I62.03 Nontraumatic chronic subdural hemorrhage; G96.08 Other cranial cerebrospinal fluid leak; E87.1 Hypo-osmolality and hyponatremia; E86.0 Dehydration; I11.0 Hypertensive heart disease with heart failure; E11.9 Type 2 diabetes mellitus without complications; M19.90 Unspecified osteoarthritis, unspecified site; R26.9 Unspecified abnormalities of gait and mobility; Z90.49 Acquired absence of other specified parts of digestive tract; E55.9 Vitamin D deficiency, unspecified; Z90.710 Acquired absence of both cervix and uterus; Z98.890 Other specified postprocedural states; Z88.5 Allergy status to narcotic agent; Z88.2 Allergy status to sulfonamides; Z91.041 Radiographic dye allergy status; Z88.8 Allergy status to other drugs, medicaments and biological substances; Z79.82 Long term (current) use of aspirin; Z79.84 Long term (current) use of oral hypoglycemic drugs; Z79.899 Other long term (current) drug therapy; H40.9 Unspecified glaucoma; E78.5 Hyperlipidemia, unspecified; F41.9 Anxiety disorder, unspecified; G43.909 Migraine, unspecified, not intractable, without status migrainosus; I50.9 Heart failure, unspecified; Z68.31 Body mass index [BMI] 31.0-31.9, adult; E66.9 Obesity, unspecified; Z87.820 Personal history of traumatic brain injury; D64.9 Anemia, unspecified; E86.9 Volume depletion, unspecified; T50.2X5A Adverse effect of carbonic-anhydrase inhibitors, benzothiadiazides and other diuretics, initial encounter; Y92.9 Unspecified place or not applicable
CPT/HCPCS: 36415; 70450-TC; 70551-TC; 71045-TC; 80048-TC; 80076-TC; 81001; 82140-TC; 82607-TC; 83605-TC; 83735-TC; 84100-TC; 84443-TC; 84484-TC; 85025-TC; 85652-TC; 85730-TC; 86140-TC; 87081-TC; 87086-TC; A4223; G0378; G0480; J0780; J3030; J3490; J7030; J7060

== ENCOUNTER 2025-01-07 02:35 | Emergency (ER) | payer MEDICARE, OTHER ==
[~2025-01-07] VITALS: Ht 149.9 cm; Wt 65.8 kg
[~2025-01-07 02:35] MED LIST changes: -AZIT250T PO; +HYDR25TA4 PO
[2025-01-07 02:36] VITALS: BP 132/73; TEMP 97.3; O2SAT 96
[2025-01-07 03:12] LABS: BASOPHILS # (AUTO) 0.1 K/uL (0.0-0.2); BASOPHILS % (AUTO) 1.1 % (0.0-2.0); EOSINOPHILS # (AUTO) 0.8 K/uL (0.0-0.7); EOSINOPHILS % (AUTO) 9.2 % (0.0-6.0); HEMATOCRIT 34 % (33-45); HEMOGLOBIN 11.2 g/dL (11.5-14.8); LYMPHOCYTES # (AUTO) 2.2 K/uL (0.8-4.8); LYMPHOCYTES % (AUTO) 24.5 % (20.0-44.0); MEAN CORPUSCULAR HEMOGLOBIN 33 PG (26.0-33.0); MEAN CORPUSCULAR HGB CONC 33 g/dl (31.0-36.0); MEAN CORPUSCULAR VOLUME 97 fL (82-100); MONOCYTES # (AUTO) 0.5 K/uL (0.1-1.30); MONOCYTES % (AUTO) 5.9 % (2.0-12.0); NEUTROPHILS # (AUTO) 5.3 K/uL (1.8-8.9); NEUTROPHILS % (AUTO) 59.3 % (43.0-81.0); PLATELET COUNT (AUTO) 429 K/uL (150-450); RED BLOOD CELL COUNT(AUTO) 3.45 MIL/uL (4.0-5.2); RED CELL DISTRIBUTION WIDTH 14.7 % (11.5-15.0)
[2025-01-07 03:21] LABS: CALCIUM, SERUM 10.1 mg/dL (8.5-10.1); CARBON DIOXIDE 28 mmol/L (21-32); CHLORIDE 101 mmol/L (98-107); CREATININE 0.8 mg/dL (0.6-1.3); GLUCOSE 88 mg/dL (74-106); SODIUM SERUM 132 mmol/L (136-145); UREA NITROGEN, BLOOD 23 mg/dL (7-18)
[2025-01-07 03:27] LABS: APPEARANCE,URINE CLEAR (CLEAR); BILIRUBIN,URINE NEGATIVE (NEGATIVE); BLOOD, URINE TRACE Ery/uL (NEGATIVE); COLOR,URINE YELLOW (YELLOW); KETONES,URINE NEGATIVE (NEGATIVE); LEUKOCYTE ESTERASE ,URINE 1+ (NEGATIVE); NITRITE, URINE NEGATIVE (NEGATIVE); PROTEIN,URINE NEGATIVE (NEGATIVE); UGLUCOSE NEGATIVE (NEGATIVE); UROBILINOGEN,URINE 0.2 EU/dL (0.2)
[2025-01-07 03:36] LABS: ALANINE AMINOTRANSFERASE 21 U/L (12-78); ALBUMIN 3.6 g/dL (3.4-5.0); ALKALINE PHOSPHATASE 71 U/L (46-116); ASPARTATE AMINOTRANSFERASE 17 U/L (15-37); BILIRUBIN,TOTAL 0.4 mg/dL (0.2-1.0); TOTAL PROTEIN, SERUM 7.9 g/dL (6.4-8.2)
[2025-01-07 03:40] LABS: BILIRUBIN,DIRECT 0.1 mg/dL (0.0-0.2)
[2025-01-07 03:48] LABS: ADD URINE CULTURE YES; BACTERIA,URINE Rare /HPF (None Seen); RBC,URINE 0-2 /HPF (0-2)
== END 2025-01-07 06:14 | disposition home or self-care (01) ==
LOC: ER 02:36
DX: F41.9 Anxiety disorder, unspecified (principal); I10 Essential (primary) hypertension; E11.9 Type 2 diabetes mellitus without complications; M19.90 Unspecified osteoarthritis, unspecified site; Z79.82 Long term (current) use of aspirin; Z79.84 Long term (current) use of oral hypoglycemic drugs; Z79.899 Other long term (current) drug therapy; Z88.2 Allergy status to sulfonamides; Z88.5 Allergy status to narcotic agent; Z88.8 Allergy status to other drugs, medicaments and biological substances; Z90.49 Acquired absence of other specified parts of digestive tract; Z91.041 Radiographic dye allergy status
CPT/HCPCS: 36415; 71045-TC; 80048-TC; 80076-TC; 81001; 84484-TC; 85025-TC; 87086-TC

== ENCOUNTER 2025-01-18 22:22 | Emergency (ER) | payer MEDICARE, OTHER ==
[~2025-01-18] VITALS: Ht 144.8 cm; Wt 65.8 kg
[2025-01-19 00:07] LABS: BASOPHILS # (AUTO) 0.1 K/uL (0.0-0.2); BASOPHILS % (AUTO) 1.5 % (0.0-2.0); EOSINOPHILS # (AUTO) 0.6 K/uL (0.0-0.7); EOSINOPHILS % (AUTO) 6.4 % (0.0-6.0); HEMATOCRIT 32 % (33-45); HEMOGLOBIN 10.7 g/dL (11.5-14.8); LYMPHOCYTES # (AUTO) 2.3 K/uL (0.8-4.8); MEAN CORPUSCULAR HEMOGLOBIN 32 PG (26.0-33.0); MEAN CORPUSCULAR HGB CONC 33 g/dl (31.0-36.0); MEAN CORPUSCULAR VOLUME 96 fL (82-100); MONOCYTES # (AUTO) 0.5 K/uL (0.1-1.30); MONOCYTES % (AUTO) 6.1 % (2.0-12.0); NEUTROPHILS # (AUTO) 5.3 K/uL (1.8-8.9); PLATELET COUNT (AUTO) 450 K/uL (150-450); RED BLOOD CELL COUNT(AUTO) 3.35 MIL/uL (4.0-5.2); RED CELL DISTRIBUTION WIDTH 14.1 % (11.5-15.0); WHITE BLOOD COUNT (AUTO) 8.8 K/uL (4.3-11.0)
[2025-01-19 00:15] LABS: CALCIUM, SERUM 9.2 mg/dL (8.5-10.1); CREATININE 0.8 mg/dL (0.6-1.3); POTASSIUM 4.8 mmol/L (3.5-5.1)
[2025-01-19 00:28] LABS: ALBUMIN 3.6 g/dL (3.4-5.0); BILIRUBIN,TOTAL 0.4 mg/dL (0.2-1.0); TOTAL PROTEIN, SERUM 7.1 g/dL (6.4-8.2)
[2025-01-19 05:46] VITALS: BP 137/72; TEMP 97.9; O2SAT 100
== END 2025-01-19 05:46 ==
LOC: ER 22:24
DX: F41.9 Anxiety disorder, unspecified (principal); R06.02 Shortness of breath; R51.9 Headache, unspecified; E11.9 Type 2 diabetes mellitus without complications; I10 Essential (primary) hypertension; M19.90 Unspecified osteoarthritis, unspecified site; Z79.82 Long term (current) use of aspirin; Z79.84 Long term (current) use of oral hypoglycemic drugs; Z79.899 Other long term (current) drug therapy; Z88.2 Allergy status to sulfonamides; Z88.5 Allergy status to narcotic agent; Z88.8 Allergy status to other drugs, medicaments and biological substances; Z90.49 Acquired absence of other specified parts of digestive tract; Z91.041 Radiographic dye allergy status; Z86.79 Personal history of other diseases of the circulatory system; Z87.19 Personal history of other diseases of the digestive system
CPT/HCPCS: 36415; 71045-TC; 80053-TC; 83880; 84484-TC; 85025-TC

== ENCOUNTER 2025-01-24 15:54 | Inpatient (IN) | payer MEDICARE, MEDICAID ==
[~2025-01-24] VITALS: Ht 152.4 cm; Wt 64.4 kg
[2025-01-24 17:08] LABS: BASOPHILS # (AUTO) 0.1 K/uL (0.0-0.2); BASOPHILS % (AUTO) 1.4 % (0.0-2.0); EOSINOPHILS # (AUTO) 0.6 K/uL (0.0-0.7); EOSINOPHILS % (AUTO) 5.6 % (0.0-6.0); HEMATOCRIT 32 % (33-45); HEMOGLOBIN 10.8 g/dL (11.5-14.8); LYMPHOCYTES # (AUTO) 1.6 K/uL (0.8-4.8); MEAN CORPUSCULAR HEMOGLOBIN 33 PG (26.0-33.0); MEAN CORPUSCULAR HGB CONC 34 g/dl (31.0-36.0); MEAN CORPUSCULAR VOLUME 96 fL (82-100); MONOCYTES # (AUTO) 0.4 K/uL (0.1-1.30); MONOCYTES % (AUTO) 4.4 % (2.0-12.0); NEUTROPHILS # (AUTO) 7.2 K/uL (1.8-8.9); NEUTROPHILS % (AUTO) 72.6 % (43.0-81.0); PLATELET COUNT (AUTO) 426 K/uL (150-450); RED BLOOD CELL COUNT(AUTO) 3.31 MIL/uL (4.0-5.2); WHITE BLOOD COUNT (AUTO) 9.9 K/uL (4.3-11.0)
[2025-01-24 17:21] LABS: CALCIUM, SERUM 9.3 mg/dL (8.5-10.1); CARBON DIOXIDE 25 mmol/L (21-32); CHLORIDE 93 mmol/L (98-107); CREATININE 0.9 mg/dL (0.6-1.3); GLUCOSE 98 mg/dL (74-106); POTASSIUM 3.5 mmol/L (3.5-5.1); SODIUM SERUM 129 mmol/L (136-145); UREA NITROGEN, BLOOD 23 mg/dL (7-18)
[2025-01-24 17:23] LABS: INR 0.96 (0.91-1.10); PARTIAL THROMBOPLASTIN TIME 28.2 SEC (24.3-34.3); PROTHROMBIN TIME 10.2 SECS (9.2-11.1)
[2025-01-24 17:27] LABS: ALANINE AMINOTRANSFERASE 16 U/L (12-78); ALBUMIN 3.8 g/dL (3.4-5.0); ALKALINE PHOSPHATASE 62 U/L (46-116); ASPARTATE AMINOTRANSFERASE 9 U/L (15-37); BILIRUBIN,DIRECT 0.1 mg/dL (0.0-0.2); BILIRUBIN,TOTAL 0.2 mg/dL (0.2-1.0); TOTAL PROTEIN, SERUM 7.7 g/dL (6.4-8.2)
[2025-01-24 18:13] LABS: APPEARANCE,URINE CLEAR (CLEAR); BILIRUBIN,URINE NEGATIVE (NEGATIVE); BLOOD, URINE NEGATIVE Ery/uL (NEGATIVE); COLOR,URINE YELLOW (YELLOW); KETONES,URINE NEGATIVE (NEGATIVE); LEUKOCYTE ESTERASE ,URINE NEGATIVE (NEGATIVE); NITRITE, URINE POSITIVE (NEGATIVE); PROTEIN,URINE NEGATIVE (NEGATIVE); UGLUCOSE NEGATIVE (NEGATIVE); UROBILINOGEN,URINE 0.2 EU/dL (0.2)
[2025-01-24 18:21] LABS: ADD URINE CULTURE YES; BACTERIA,URINE 1+ /HPF (None Seen); RBC,URINE 0-2 /HPF (0-2); WBC,URINE 0-2 /HPF (0-3)
[2025-01-24] MEDS: CEFTRIAXONE 1GM BAG (ER ONLY) 1 GM/50 ML PIGGYBACK IV ONE (18:45)
[2025-01-24] MEDS ORDERED: IV NS 0.9% 1,000 ML IV SCH (20:00)
[2025-01-24] MEDS ORDERED: MAGNESIUM HYDROXIDE 30 ML UDC PO PRN (20:00)
[2025-01-24] MEDS ORDERED: MAG HYDROX/AL HYDROX/SIMETH 30 ML UDC PO PRN (20:00)
[2025-01-24] MEDS ORDERED: DEXTROSE 50%-WATER 50 ML DISP.SYRIN IV PRN (20:00)
[2025-01-24] MEDS ORDERED: ONDANSETRON HCL/PF 4 MG/2 ML VIAL IVP PRN (20:00)
[2025-01-24] MEDS ORDERED: AMLODIPINE BESYLATE 5 MG TABLET PO PRN (20:00)
[2025-01-24 20:20] VITALS: BP 141/65; TEMP 97.5; O2SAT 99
[2025-01-24] MEDS: IV NS 0.9% 1,000 ML IV ONE (21:37)
[2025-01-24] MEDS: DIAZEPAM 5 MG TABLET PO SCH (21:37)
[2025-01-24] MEDS: ENOXAPARIN SODIUM 40 MG/0.4 ML DISP.SYRIN SQ SCH (21:43)
[2025-01-24] MEDS: BLOOD SUGAR DIAGNOSTIC 1 EACH STRIP IN SCH (22:29)
[2025-01-24] MEDS: INSULIN REGULAR, HUMAN 100 UNIT/ML 3 ML VIAL SQ PRN (22:29)
[2025-01-25] MEDS: ACETAMINOPHEN 325 MG TABLET PO PRN (04:40)
[2025-01-25 07:02] LABS: BASOPHILS # (AUTO) 0.1 K/uL (0.0-0.2); EOSINOPHILS # (AUTO) 0.5 K/uL (0.0-0.7); HEMATOCRIT 29 % (33-45); HEMOGLOBIN 9.8 g/dL (11.5-14.8); LYMPHOCYTES # (AUTO) 1.5 K/uL (0.8-4.8); LYMPHOCYTES % (AUTO) 19.3 % (20.0-44.0); MEAN CORPUSCULAR HEMOGLOBIN 32 PG (26.0-33.0); MEAN CORPUSCULAR HGB CONC 34 g/dl (31.0-36.0); MEAN CORPUSCULAR VOLUME 96 fL (82-100); MONOCYTES # (AUTO) 0.5 K/uL (0.1-1.30); MONOCYTES % (AUTO) 6.4 % (2.0-12.0); NEUTROPHILS # (AUTO) 5.3 K/uL (1.8-8.9); NEUTROPHILS % (AUTO) 67.3 % (43.0-81.0); PLATELET COUNT (AUTO) 398 K/uL (150-450); RED BLOOD CELL COUNT(AUTO) 3.05 MIL/uL (4.0-5.2); RED CELL DISTRIBUTION WIDTH 13.5 % (11.5-15.0); WHITE BLOOD COUNT (AUTO) 7.9 K/uL (4.3-11.0)
[2025-01-25 07:27] LABS: CREATININE 0.8 mg/dL (0.6-1.3); PHOSPHORUS 3.6 mg/dL (2.5-4.9); POTASSIUM 3.5 mmol/L (3.5-5.1)
[2025-01-25] MEDS: PANTOPRAZOLE 40 MG TABLET.DR PO SCH (07:30)
[2025-01-25 08:00] VITALS: BP 120/65; TEMP 98.2; O2SAT 96
[2025-01-25] MEDS: LISINOPRIL (20MG) 20 MG TABLET PO SCH (08:32)
[2025-01-25] MEDS: ASPIRIN 81 MG TAB.CHEW PO SCH (08:32)
[2025-01-25 16:12] VITALS: BP 135/70; TEMP 98.1; O2SAT 95
[2025-01-25] MEDS: CEFTRIAXONE 1 G in IV D5W 50 ML IV SCH (17:15)
[2025-01-25] MEDS: IBUPROFEN 200 MG TABLET PO PRN (17:45)
[2025-01-25] MEDS ORDERED: CEFTRIAXONE 1 G in IV D5W 50 ML IV SCH (18:30)
[2025-01-25] MEDS: IBUPROFEN 200 MG TABLET PO ONE (19:41)
[2025-01-25 20:00] VITALS: BP 129/70; TEMP 98.4; O2SAT 97
[2025-01-26 06:36] LABS: BASOPHILS # (AUTO) 0.1 K/uL (0.0-0.2); BASOPHILS % (AUTO) 1.2 % (0.0-2.0); EOSINOPHILS # (AUTO) 0.7 K/uL (0.0-0.7); EOSINOPHILS % (AUTO) 9.8 % (0.0-6.0); HEMATOCRIT 29 % (33-45); HEMOGLOBIN 9.7 g/dL (11.5-14.8); LYMPHOCYTES % (AUTO) 26.7 % (20.0-44.0); MEAN CORPUSCULAR HEMOGLOBIN 33 PG (26.0-33.0); MEAN CORPUSCULAR HGB CONC 34 g/dl (31.0-36.0); MEAN CORPUSCULAR VOLUME 97 fL (82-100); MONOCYTES # (AUTO) 0.5 K/uL (0.1-1.30); MONOCYTES % (AUTO) 6.5 % (2.0-12.0); NEUTROPHILS # (AUTO) 4.2 K/uL (1.8-8.9); NEUTROPHILS % (AUTO) 55.8 % (43.0-81.0); PLATELET COUNT (AUTO) 367 K/uL (150-450); RED BLOOD CELL COUNT(AUTO) 2.98 MIL/uL (4.0-5.2); RED CELL DISTRIBUTION WIDTH 14.1 % (11.5-15.0); WHITE BLOOD COUNT (AUTO) 7.5 K/uL (4.3-11.0)
[2025-01-26 07:08] LABS: BILIRUBIN,TOTAL 0.2 mg/dL (0.2-1.0); CALCIUM, SERUM 8.8 mg/dL (8.5-10.1); CREATININE 0.9 mg/dL (0.6-1.3); MAGNESIUM 2.1 mg/dL (1.8-2.4); PHOSPHORUS 3.8 mg/dL (2.5-4.9); POTASSIUM 3.8 mmol/L (3.5-5.1); TOTAL PROTEIN, SERUM 6.4 g/dL (6.4-8.2)
[2025-01-26 07:30] VITALS: BP 134/74; TEMP 98.1; O2SAT 96
[2025-01-26 16:00] VITALS: BP 138/69; TEMP 97.9; O2SAT 96
[2025-01-26 20:00] VITALS: BP 133/69; TEMP 97.9; O2SAT 96
[2025-01-27 04:08] VITALS: TEMP 97.9
[2025-01-27] MEDS ORDERED: LISI40TA13 PO (09:37)
[2025-01-27 10:22] LABS: BASOPHILS # (AUTO) 0.1 K/uL (0.0-0.2); EOSINOPHILS # (AUTO) 0.7 K/uL (0.0-0.7); EOSINOPHILS % (AUTO) 9.4 % (0.0-6.0); HEMATOCRIT 32 % (33-45); HEMOGLOBIN 10.7 g/dL (11.5-14.8); LYMPHOCYTES # (AUTO) 1.6 K/uL (0.8-4.8); LYMPHOCYTES % (AUTO) 23.3 % (20.0-44.0); MEAN CORPUSCULAR HEMOGLOBIN 32 PG (26.0-33.0); MEAN CORPUSCULAR HGB CONC 33 g/dl (31.0-36.0); MEAN CORPUSCULAR VOLUME 97 fL (82-100); MONOCYTES # (AUTO) 0.4 K/uL (0.1-1.30); MONOCYTES % (AUTO) 5.2 % (2.0-12.0); NEUTROPHILS # (AUTO) 4.3 K/uL (1.8-8.9); NEUTROPHILS % (AUTO) 61.1 % (43.0-81.0); PLATELET COUNT (AUTO) 428 K/uL (150-450); RED CELL DISTRIBUTION WIDTH 14.2 % (11.5-15.0)
[2025-01-27] MEDS: LISINOPRIL (20MG) 20 MG TABLET PO ONE ×2 (10:26→12:04)
[2025-01-27 10:34] LABS: ALANINE AMINOTRANSFERASE 13 U/L (12-78); ALKALINE PHOSPHATASE 55 U/L (46-116); ASPARTATE AMINOTRANSFERASE < 5 U/L (15-37); BILIRUBIN,TOTAL 0.2 mg/dL (0.2-1.0); CALCIUM, SERUM 8.8 mg/dL (8.5-10.1); CARBON DIOXIDE 25 mmol/L (21-32); CHLORIDE 103 mmol/L (98-107); CREATININE 0.9 mg/dL (0.6-1.3); GLUCOSE 131 mg/dL (74-106); PHOSPHORUS 3.3 mg/dL (2.5-4.9); POTASSIUM 3.7 mmol/L (3.5-5.1); SODIUM SERUM 138 mmol/L (136-145); TOTAL PROTEIN, SERUM 6.7 g/dL (6.4-8.2); UREA NITROGEN, BLOOD 19 mg/dL (7-18)
[2025-01-27 12:04] VITALS: BP 174/84
== END 2025-01-27 12:30 | disposition home health service (06) | DRG 641 ==
LOC: ER 16:03 → MED 19:34
DX: E87.1 Hypo-osmolality and hyponatremia (principal); N39.0 Urinary tract infection, site not specified; T50.2X5A Adverse effect of carbonic-anhydrase inhibitors, benzothiadiazides and other diuretics, initial encounter; Y92.89 Other specified places as the place of occurrence of the external cause; F32.9 Major depressive disorder, single episode, unspecified; E11.9 Type 2 diabetes mellitus without complications; E66.9 Obesity, unspecified; I27.20 Pulmonary hypertension, unspecified; B96.89 Other specified bacterial agents as the cause of diseases classified elsewhere; E78.5 Hyperlipidemia, unspecified; Z90.49 Acquired absence of other specified parts of digestive tract; Z90.710 Acquired absence of both cervix and uterus; Z88.5 Allergy status to narcotic agent; Z88.2 Allergy status to sulfonamides; D64.9 Anemia, unspecified; F41.9 Anxiety disorder, unspecified; E86.9 Volume depletion, unspecified; Z79.84 Long term (current) use of oral hypoglycemic drugs; Z79.899 Other long term (current) drug therapy; Z79.82 Long term (current) use of aspirin; I11.0 Hypertensive heart disease with heart failure; I50.9 Heart failure, unspecified
CPT/HCPCS: 36415; 71045-TC; 80048-TC; 80053-TC; 80076-TC; 81001; 82962-TC; 83735-TC; 84100-TC; 84484-TC; 85025-TC; 85730-TC; 87081-TC; 87086-TC; 97110-TC; 97116-TC; 97530-TC; A4223; G0378; J0696; J1650; J1815; J7030; J7050; J7060

== ENCOUNTER 2025-01-27 20:00 | Inpatient (IN) | payer MEDICARE, OTHER ==
[~2025-01-27] VITALS: Ht 149.9 cm; Wt 62.6 kg
[~2025-01-27 20:00] MED LIST changes: +LISI40TA13 PO
[2025-01-27 21:59] LABS: BASOPHILS # (AUTO) 0.1 K/uL (0.0-0.2); BASOPHILS % (AUTO) 1.1 % (0.0-2.0); EOSINOPHILS # (AUTO) 0.5 K/uL (0.0-0.7); EOSINOPHILS % (AUTO) 5.4 % (0.0-6.0); HEMATOCRIT 34 % (33-45); HEMOGLOBIN 11.3 g/dL (11.5-14.8); LYMPHOCYTES # (AUTO) 1.5 K/uL (0.8-4.8); LYMPHOCYTES % (AUTO) 15.9 % (20.0-44.0); MEAN CORPUSCULAR HEMOGLOBIN 32 PG (26.0-33.0); MEAN CORPUSCULAR HGB CONC 33 g/dl (31.0-36.0); MEAN CORPUSCULAR VOLUME 97 fL (82-100); MONOCYTES # (AUTO) 0.5 K/uL (0.1-1.30); MONOCYTES % (AUTO) 4.7 % (2.0-12.0); NEUTROPHILS # (AUTO) 7.1 K/uL (1.8-8.9); NEUTROPHILS % (AUTO) 72.9 % (43.0-81.0); PLATELET COUNT (AUTO) 475 K/uL (150-450); RED BLOOD CELL COUNT(AUTO) 3.49 MIL/uL (4.0-5.2); RED CELL DISTRIBUTION WIDTH 14.2 % (11.5-15.0); WHITE BLOOD COUNT (AUTO) 9.7 K/uL (4.3-11.0)
[2025-01-27 22:06] LABS: CALCIUM, SERUM 9.6 mg/dL (8.5-10.1); CARBON DIOXIDE 27 mmol/L (21-32); CHLORIDE 104 mmol/L (98-107); CREATININE 0.7 mg/dL (0.6-1.3); GLUCOSE 101 mg/dL (74-106); POTASSIUM 4.4 mmol/L (3.5-5.1); SODIUM SERUM 140 mmol/L (136-145); UREA NITROGEN, BLOOD 17 mg/dL (7-18)
[2025-01-27 22:19] LABS: NT-PRO BNP 90 pg/mL (0-125)
[2025-01-27] MEDS ORDERED: MAG HYDROX/AL HYDROX/SIMETH 30 ML UDC PO PRN (23:00)
[2025-01-27] MEDS ORDERED: AMLODIPINE BESYLATE 5 MG TABLET PO PRN (23:00)
[2025-01-27] MEDS ORDERED: Z GUARD REMEDY 4 OZ OINT TP PRN (23:00)
[2025-01-27] MEDS ORDERED: IV NS 0.9% 1,000 ML IV SCH (23:00)
[2025-01-27] MEDS ORDERED: DEXTROSE 50%-WATER 50 ML DISP.SYRIN IV PRN (23:00)
[2025-01-27] MEDS ORDERED: ONDANSETRON HCL/PF 4 MG/2 ML VIAL IVP PRN (23:00)
[2025-01-27] MEDS ORDERED: MAGNESIUM HYDROXIDE 30 ML UDC PO PRN (23:00)
[2025-01-28 00:30] VITALS: BP_SYST 134; BP_SYST 140; BP_DIAS 82; BP_DIAS 83; BP_DIAS 85; TEMP 97.5; O2SAT 96; O2SAT 98
[2025-01-28 04:00] VITALS: BP 138/64; TEMP 98.2; O2SAT 97
[2025-01-28] MEDS: BLOOD SUGAR DIAGNOSTIC 1 EACH STRIP IN SCH (06:31)
[2025-01-28] MEDS: INSULIN REGULAR, HUMAN 100 UNIT/ML 3 ML VIAL SQ PRN (06:31)
[2025-01-28] MEDS ORDERED: PANTOPRAZOLE 40 MG TABLET.DR PO SCH (07:30)
[2025-01-28 07:40] LABS: BASOPHILS # (AUTO) 0.1 K/uL (0.0-0.2); EOSINOPHILS # (AUTO) 0.6 K/uL (0.0-0.7); EOSINOPHILS % (AUTO) 6.4 % (0.0-6.0); HEMATOCRIT 29 % (33-45); LYMPHOCYTES # (AUTO) 1.7 K/uL (0.8-4.8); LYMPHOCYTES % (AUTO) 16.9 % (20.0-44.0); MEAN CORPUSCULAR HEMOGLOBIN 33 PG (26.0-33.0); MEAN CORPUSCULAR HGB CONC 34 g/dl (31.0-36.0); MEAN CORPUSCULAR VOLUME 97 fL (82-100); MONOCYTES # (AUTO) 0.6 K/uL (0.1-1.30); MONOCYTES % (AUTO) 5.8 % (2.0-12.0); NEUTROPHILS # (AUTO) 6.8 K/uL (1.8-8.9); NEUTROPHILS % (AUTO) 69.9 % (43.0-81.0); PLATELET COUNT (AUTO) 391 K/uL (150-450); RED BLOOD CELL COUNT(AUTO) 3.01 MIL/uL (4.0-5.2); RED CELL DISTRIBUTION WIDTH 14.3 % (11.5-15.0); WHITE BLOOD COUNT (AUTO) 9.8 K/uL (4.3-11.0)
[2025-01-28 08:00] VITALS: BP 148/76; TEMP 98.1; O2SAT 97
[2025-01-28 08:56] LABS: CARBON DIOXIDE 25 mmol/L (21-32); CHLORIDE 105 mmol/L (98-107); CREATININE 0.7 mg/dL (0.6-1.3); GLUCOSE 97 mg/dL (74-106); MAGNESIUM 2.1 mg/dL (1.8-2.4); PHOSPHORUS 3.3 mg/dL (2.5-4.9); POTASSIUM 3.7 mmol/L (3.5-5.1); SODIUM SERUM 139 mmol/L (136-145); UREA NITROGEN, BLOOD 16 mg/dL (7-18)
[2025-01-28] MEDS: DIAZEPAM 5 MG TABLET PO SCH (09:11)
[2025-01-28] MEDS: ASPIRIN 81 MG TAB.CHEW PO SCH (09:11)
[2025-01-28] MEDS: ENOXAPARIN SODIUM 40 MG/0.4 ML DISP.SYRIN SQ SCH (09:15)
[2025-01-28] MEDS: LISINOPRIL (20MG) 20 MG TABLET PO SCH (09:31)
[2025-01-28] MEDS: ACETAMINOPHEN 325 MG TABLET PO PRN (13:20)
[2025-01-28 16:46] VITALS: BP 155/76; TEMP 98; O2SAT 97
== END 2025-01-28 17:50 | DRG 74 ==
LOC: ER 20:06 → TELE 23:42
PROVIDERS: ATTEND Nurse Practitioner Family
DX: G90.89 Other disorders of autonomic nervous system (principal); R07.9 Chest pain, unspecified; R55 Syncope and collapse; D75.839 Thrombocytosis, unspecified; Z79.84 Long term (current) use of oral hypoglycemic drugs; E11.9 Type 2 diabetes mellitus without complications; D63.8 Anemia in other chronic diseases classified elsewhere; E66.9 Obesity, unspecified; E78.5 Hyperlipidemia, unspecified; F41.9 Anxiety disorder, unspecified; I11.0 Hypertensive heart disease with heart failure; I50.9 Heart failure, unspecified; Z79.82 Long term (current) use of aspirin; Z88.2 Allergy status to sulfonamides; F32.9 Major depressive disorder, single episode, unspecified
CPT/HCPCS: 36415; 71045-TC; 80048-TC; 82962-TC; 83735-TC; 83880; 84100-TC; 84484-TC; 85025-TC; 93880-TC; 97110-TC; 97116-TC; 97530-TC; G0378; J1650; J1815

== ENCOUNTER 2025-02-19 15:48 | Emergency (ER) | payer MEDICARE, OTHER ==
[~2025-02-19] VITALS: Ht 152.4 cm; Wt 83.5 kg
[~2025-02-19 15:48] MED LIST changes: -HYDR25TA4 PO; -LISI20TA30 PO
[2025-02-19 16:54] LABS: PLATELET COUNT (AUTO) 394 K/uL (150-450); RED BLOOD CELL COUNT(AUTO) 3.32 MIL/uL (4.0-5.2); RED CELL DISTRIBUTION WIDTH 14.4 % (11.5-15.0); WHITE BLOOD COUNT (AUTO) 7.6 K/uL (4.3-11.0)
[2025-02-19 17:01] LABS: CALCIUM, SERUM 9.1 mg/dL (8.5-10.1); CREATININE 0.9 mg/dL (0.6-1.3); SODIUM SERUM 137 mmol/L (136-145); UREA NITROGEN, BLOOD 18 mg/dL (7-18)
[2025-02-19] MEDS ORDERED: ONDANSETRON HCL/PF 4 MG/2 ML VIAL ONE (17:05)
[2025-02-19] MEDS ORDERED: ACETAMINOPHEN ES 500 MG TABLET ONE (17:05)
[2025-02-19 17:06] LABS: ASPARTATE AMINOTRANSFERASE 11 U/L (15-37); TOTAL PROTEIN, SERUM 6.9 g/dL (6.4-8.2)
[2025-02-19] MEDS: ONDANSETRON HCL/PF 4 MG/2 ML VIAL IVP ONE (17:24)
[2025-02-19] MEDS: ACETAMINOPHEN ES 500 MG TABLET PO ONE ×2 (17:25→20:19)
[2025-02-19 18:13] LABS: APPEARANCE,URINE CLEAR (CLEAR); BLOOD, URINE Moderate Ery/uL (NEGATIVE); LEUKOCYTE ESTERASE ,URINE Small (NEGATIVE); NITRITE, URINE NEGATIVE (NEGATIVE); UGLUCOSE Negative (NEGATIVE)
[2025-02-19 18:14] LABS: ADD URINE CULTURE YES; SQUAMOUS EPITHELIAL CELL,UR Few /HPF (None Seen)
[2025-02-19] MEDS: LISINOPRIL (20MG) 20 MG TABLET PO ONE (19:30)
[2025-02-19] MEDS ORDERED: CEPH500C2 PO (19:35)
[2025-02-19] MEDS: LISINOPRIL (20MG) 20 MG TABLET PO SCH (19:49)
[2025-02-19] MEDS: CEPHALEXIN MONOHYDRATE 500 MG CAPSULE PO ONE (19:59)
[2025-02-19 23:30] VITALS: BP 140/75; TEMP 98; O2SAT 99
== END 2025-02-19 23:31 ==
LOC: ER 15:51
DX: N39.0 Urinary tract infection, site not specified (principal); R10.32 Left lower quadrant pain; I10 Essential (primary) hypertension; E11.9 Type 2 diabetes mellitus without complications; K58.9 Irritable bowel syndrome, unspecified; M19.90 Unspecified osteoarthritis, unspecified site; Z79.82 Long term (current) use of aspirin; Z79.84 Long term (current) use of oral hypoglycemic drugs; Z79.899 Other long term (current) drug therapy; Z88.2 Allergy status to sulfonamides; Z88.5 Allergy status to narcotic agent; Z88.8 Allergy status to other drugs, medicaments and biological substances; Z90.49 Acquired absence of other specified parts of digestive tract
CPT/HCPCS: 99285; 74176; 73503; 85025; 80048; 87086; 83690; 80076; 81001; 36415; J2405; 73502

== ENCOUNTER 2025-03-02 18:17 | Emergency (ER) | payer MEDICARE, OTHER ==
[~2025-03-02] VITALS: Ht 149.9 cm; Wt 68.0 kg
[~2025-03-02 18:17] MED LIST changes: +CEPH500C2 PO
[2025-03-02 18:40] VITALS: TEMP 97.9; O2SAT 97
[2025-03-02 19:22] LABS: PLATELET COUNT (AUTO) 318 K/uL (150-450); RED BLOOD CELL COUNT(AUTO) 3.19 MIL/uL (4.0-5.2); RED CELL DISTRIBUTION WIDTH 14.3 % (11.5-15.0); WHITE BLOOD COUNT (AUTO) 8.3 K/uL (4.3-11.0)
[2025-03-02 19:35] LABS: CALCIUM, SERUM 9.2 mg/dL (8.5-10.1); CREATININE 1.0 mg/dL (0.6-1.3); SODIUM SERUM 138.0 mmol/L (136-145); UREA NITROGEN, BLOOD 21.0 mg/dL (7-18)
[2025-03-02] MEDS ORDERED: KETOROLAC TROMETHAMINE 15 MG/ML VIAL ONE (20:36)
[2025-03-02] MEDS: KETOROLAC TROMETHAMINE 15 MG/ML VIAL IV ONE (20:37)
[2025-03-02] MEDS: DIAZEPAM 5 MG TABLET PO ONE (21:23)
[2025-03-02] MEDS ORDERED: DIAZEPAM 5 MG TABLET ONE (21:23)
[2025-03-02 22:56] VITALS: BP 155/78
== END 2025-03-03 00:36 ==
LOC: ER 18:24
DX: I10 Essential (primary) hypertension (principal); R51.9 Headache, unspecified; E11.9 Type 2 diabetes mellitus without complications; M19.90 Unspecified osteoarthritis, unspecified site; Z79.82 Long term (current) use of aspirin; Z79.84 Long term (current) use of oral hypoglycemic drugs; Z79.899 Other long term (current) drug therapy; Z88.2 Allergy status to sulfonamides; Z88.5 Allergy status to narcotic agent; Z88.8 Allergy status to other drugs, medicaments and biological substances; Z90.49 Acquired absence of other specified parts of digestive tract; Z86.79 Personal history of other diseases of the circulatory system; Z87.19 Personal history of other diseases of the digestive system; Z86.59 Personal history of other mental and behavioral disorders
CPT/HCPCS: 99284; 96374; 93005; 85025; 80048; 36415; J1885

== ENCOUNTER 2025-03-16 09:47 | Emergency (ER) | payer MEDICARE, OTHER ==
[~2025-03-16] VITALS: Ht 149.9 cm; Wt 67.1 kg
[2025-03-16 09:48] VITALS: TEMP 98.3
[2025-03-16] MEDS ORDERED: ACETAMINOPHEN ES 500 MG TABLET ONE (10:37)
[2025-03-16] MEDS: ACETAMINOPHEN ES 500 MG TABLET PO ONE (10:46)
[2025-03-16 14:23] VITALS: BP 136/64; O2SAT 98
== END 2025-03-16 14:29 | disposition home or self-care (01) ==
LOC: ER 09:50
DX: S22.42XA Multiple fractures of ribs, left side, initial encounter for closed fracture (principal); M19.90 Unspecified osteoarthritis, unspecified site; I10 Essential (primary) hypertension; E11.9 Type 2 diabetes mellitus without complications; Z79.82 Long term (current) use of aspirin; Z79.84 Long term (current) use of oral hypoglycemic drugs; Z79.899 Other long term (current) drug therapy; Z88.2 Allergy status to sulfonamides; Z88.5 Allergy status to narcotic agent; Z88.8 Allergy status to other drugs, medicaments and biological substances; Z90.49 Acquired absence of other specified parts of digestive tract; W18.39XA Other fall on same level, initial encounter; Y93.89 Activity, other specified; Y92.89 Other specified places as the place of occurrence of the external cause; Y99.8 Other external cause status
CPT/HCPCS: 71100-TC

== ENCOUNTER 2025-03-17 03:06 | Emergency (ER) | payer MEDICARE, OTHER ==
[~2025-03-17] VITALS: Ht 149.9 cm; Wt 68.0 kg
[2025-03-17 04:22] LABS: RED BLOOD CELL COUNT(AUTO) 3.42 MIL/uL (4.0-5.2); RED CELL DISTRIBUTION WIDTH 14.3 % (11.5-15.0); WHITE BLOOD COUNT (AUTO) 11.3 K/uL (4.3-11.0)
[2025-03-17 04:23] LABS: PLATELET COUNT (AUTO) 339 K/uL (150-450)
[2025-03-17 04:36] LABS: CALCIUM, SERUM 9.0 mg/dL (8.5-10.1); CREATININE 0.8 mg/dL (0.6-1.3); SODIUM SERUM 136 mmol/L (136-145); UREA NITROGEN, BLOOD 25 mg/dL (7-18)
[2025-03-17] MEDS ORDERED: LISINOPRIL (20MG) 20 MG TABLET ONE (07:01)
[2025-03-17] MEDS ORDERED: DIAZEPAM 5 MG TABLET ONE (07:01)
[2025-03-17] MEDS ORDERED: ASPIRIN 81 MG TAB.CHEW ONE (07:02)
[2025-03-17] MEDS ORDERED: ATORVASTATIN 40 MG TABLET ONE (07:04)
[2025-03-17] MEDS: ASPIRIN 81 MG TAB.CHEW PO ONE (07:13)
[2025-03-17] MEDS: DIAZEPAM 5 MG TABLET PO ONE (07:13)
[2025-03-17] MEDS: VALSARTAN 40 MG TABLET PO SCH (07:22)
[2025-03-17 07:28] VITALS: BP 166/88; TEMP 97.8; O2SAT 99
[2025-03-17] MEDS ORDERED: LISINOPRIL (20MG) 20 MG TABLET PO SCH (09:00)
== END 2025-03-17 07:28 ==
LOC: ER 03:09
DX: R00.1 Bradycardia, unspecified (principal); R07.81 Pleurodynia; R53.1 Weakness; E11.9 Type 2 diabetes mellitus without complications; F41.9 Anxiety disorder, unspecified; I10 Essential (primary) hypertension; M19.90 Unspecified osteoarthritis, unspecified site; Z79.82 Long term (current) use of aspirin; Z79.84 Long term (current) use of oral hypoglycemic drugs; Z79.899 Other long term (current) drug therapy; Z88.2 Allergy status to sulfonamides; Z88.5 Allergy status to narcotic agent; Z88.8 Allergy status to other drugs, medicaments and biological substances; Z90.49 Acquired absence of other specified parts of digestive tract; Z86.79 Personal history of other diseases of the circulatory system; Z87.19 Personal history of other diseases of the digestive system
CPT/HCPCS: 36415; 80048-TC; 84484-TC; 85025-TC

== ENCOUNTER 2025-04-17 14:27 | Inpatient (IN) | payer MEDICARE, OTHER ==
[~2025-04-17] VITALS: Ht 144.8 cm; Wt 66.7 kg
[2025-04-17] MEDS ORDERED: Magnesium 1GM/D5W 100ML PREMIX 100 ML IV ONE (15:31)
[2025-04-17 15:35] LABS: PLATELET COUNT (AUTO) 325 K/uL (150-450); RED BLOOD CELL COUNT(AUTO) 3.40 MIL/uL (4.0-5.2); RED CELL DISTRIBUTION WIDTH 14.1 % (11.5-15.0); WHITE BLOOD COUNT (AUTO) 7.8 K/uL (4.3-11.0)
[2025-04-17] MEDS: Magnesium 1GM/D5W 100ML PREMIX 100 ML IV ONE (15:36)
[2025-04-17 15:43] LABS: CALCIUM, SERUM 9.0 mg/dL (8.5-10.1); CREATININE 0.9 mg/dL (0.6-1.3); SODIUM SERUM 135 mmol/L (136-145); UREA NITROGEN, BLOOD 21 mg/dL (7-18)
[2025-04-17] MEDS ORDERED: DIAZEPAM 5 MG TABLET ONE (17:32)
[2025-04-17] MEDS: DIAZEPAM 5 MG TABLET PO ONE (17:54)
[2025-04-17] MEDS: VALSARTAN 40 MG TABLET PO ONE (17:56)
[2025-04-17] MEDS: VALSARTAN 80 MG TABLET PO ONE (17:58)
[2025-04-17] MEDS ORDERED: KETOROLAC TROMETHAMINE 15 MG/ML VIAL ONE (18:11)
[2025-04-17] MEDS: KETOROLAC TROMETHAMINE 15 MG/ML VIAL IV ONE (18:16)
[2025-04-17] MEDS ORDERED: Z GUARD REMEDY 4 OZ OINT TP PRN (21:30)
[2025-04-17] MEDS ORDERED: ONDANSETRON HCL/PF 4 MG/2 ML VIAL IVP PRN (21:30)
[2025-04-17] MEDS ORDERED: MAG HYDROX/AL HYDROX/SIMETH 30 ML UDC PO PRN (21:30)
[2025-04-17] MEDS ORDERED: ACETAMINOPHEN 325 MG TABLET PO PRN (21:30)
[2025-04-17] MEDS ORDERED: ZOLPIDEM TARTRATE 5 MG TABLET PO PRN (21:30)
[2025-04-17 21:35] VITALS: BP 166/86; TEMP 97.5; O2SAT 94
[2025-04-17] MEDS: ENOXAPARIN SODIUM 40 MG/0.4 ML DISP.SYRIN SQ SCH (23:23)
[2025-04-17 23:33] VITALS: BP 166/86; TEMP 97.5; O2SAT 94
[2025-04-17 23:34] VITALS: BP 136/76; TEMP 97.5; O2SAT 96
[2025-04-18 01:00] VITALS: BP 145/92; TEMP 97.5; O2SAT 96
[2025-04-18] MEDS ORDERED: IBUPROFEN 200 MG TABLET PO PRN (01:00)
[2025-04-18] MEDS ORDERED: DEXTROSE 50%-WATER 50 ML DISP.SYRIN IV PRN (01:00)
[2025-04-18 06:00] VITALS: BP 150/76; TEMP 97.5; O2SAT 96
[2025-04-18 06:50] VITALS: BP 139/77; TEMP 97.5; O2SAT 97
[2025-04-18] MEDS: BLOOD SUGAR DIAGNOSTIC 1 EACH STRIP VI SCH (06:54)
[2025-04-18 07:30] VITALS: BP 133/79; TEMP 97.5; O2SAT 96
[2025-04-18] MEDS ORDERED: PANTOPRAZOLE 40 MG TABLET.DR PO SCH (07:30)
[2025-04-18 07:38] LABS: PLATELET COUNT (AUTO) 333 K/uL (150-450); RED BLOOD CELL COUNT(AUTO) 3.54 MIL/uL (4.0-5.2); RED CELL DISTRIBUTION WIDTH 14.1 % (11.5-15.0); WHITE BLOOD COUNT (AUTO) 7.2 K/uL (4.3-11.0)
[2025-04-18 07:55] LABS: CREATININE 0.9 mg/dL (0.6-1.3); PHOSPHORUS 4.1 mg/dL (2.5-4.9); SODIUM SERUM 142.0 mmol/L (136-145); UREA NITROGEN, BLOOD 21.0 mg/dL (7-18)
[2025-04-18 08:23] LABS: CALCIUM, SERUM 9.3 mg/dL (8.5-10.1)
[2025-04-18] MEDS: DIAZEPAM 5 MG TABLET PO SCH (09:01)
[2025-04-18] MEDS: ASPIRIN 81 MG TAB.CHEW PO SCH (09:02)
[2025-04-18] MEDS: LISINOPRIL (20MG) 20 MG TABLET PO SCH (09:07)
[2025-04-18] MEDS ORDERED: MAGN400T52 PO (10:02)
[2025-04-18] MEDS ORDERED: PARO10TA4 PO (10:02)
[2025-04-18] MEDS ORDERED: GABA-532 PO (10:02)
[2025-04-18] MEDS ORDERED: PROP10TA68 PO (10:02)
[2025-04-18] MEDS ORDERED: VALS40TA12 PO (10:02)
[2025-04-18] MEDS: METFORMIN 500 MG TABLET PO SCH (11:48)
[2025-04-18] MEDS: GABAPENTIN 100 MG CAPSULE PO SCH (11:49)
[2025-04-18] MEDS: PROPRANOLOL HCL 10 MG TABLET PO SCH (11:49)
[2025-04-18] MEDS: PAROXETINE HCL 10 MG TABLET PO SCH (13:03)
[2025-04-18] MEDS: *INSULIN REGULAR(HUMULIN R)HUM 100 UNIT/ML VIAL SQ PRN (13:07)
[2025-04-18] MEDS: IBUPROFEN 400 MG TABLET PO PRN (15:44)
[2025-04-18 16:00] VITALS: BP 157/74; TEMP 97.5; O2SAT 97
[2025-04-18] MEDS: VALSARTAN 80 MG TABLET PO SCH (16:11)
[2025-04-18 20:10] VITALS: BP 150/77; TEMP 97.2; O2SAT 98
[2025-04-18] MEDS ORDERED: MAGNESIUM OXIDE 400 MG TABLET PO SCH (22:00)
[2025-04-19] MEDS: *INSULIN REGULAR(HUMULIN R)HUM 100 UNIT/ML VIAL SQ PRN (06:31)
[2025-04-19 08:00] VITALS: BP 117/66; TEMP 97.5; O2SAT 99
[2025-04-19 12:00] VITALS: BP 149/69; TEMP 97.5; O2SAT 98
[2025-04-19] MEDS: BUTALB/APAP/CAFFEINE 1 EACH TABLET PO PRN (13:59)
[2025-04-19 16:00] VITALS: BP 136/66; TEMP 98.1; O2SAT 97
[2025-04-19 20:00] VITALS: BP 128/70; TEMP 97.5; O2SAT 96
[2025-04-20] VITALS: BP 148/66; TEMP 97.9; O2SAT 96
[2025-04-20 02:47] LABS: APPEARANCE,URINE CLEAR (CLEAR); BLOOD, URINE NEGATIVE Ery/uL (NEGATIVE); LEUKOCYTE ESTERASE ,URINE 1+ (NEGATIVE); NITRITE, URINE NEGATIVE (NEGATIVE); UGLUCOSE NEGATIVE (NEGATIVE)
[2025-04-20 02:54] LABS: ADD URINE CULTURE YES; SQUAMOUS EPITHELIAL CELL,UR Moderate /HPF (None Seen)
[2025-04-20 04:00] VITALS: BP 163/70; TEMP 97.3; O2SAT 97
[2025-04-20] MEDS: AMLODIPINE BESYLATE 5 MG TABLET PO PRN (04:18)
[2025-04-20 05:08] VITALS: BP 119/71; O2SAT 98
[2025-04-20 08:00] VITALS: BP 104/63; TEMP 98.5; O2SAT 96
[2025-04-20 16:38] VITALS: BP 124/73; TEMP 97.5; O2SAT 96
[2025-04-20 20:00] VITALS: BP 130/71; TEMP 97.2; O2SAT 95
[2025-04-21 01:31] VITALS: BP 124/71; TEMP 97.3; O2SAT 96
[2025-04-21] MEDS: MAGNESIUM HYDROXIDE 30 ML UDC PO PRN (05:42)
[2025-04-21 08:00] VITALS: BP 101/63; TEMP 97.5; O2SAT 99
[2025-04-21 10:00] VITALS: BP 122/63; TEMP 97.1; O2SAT 96
[2025-04-21 16:56] VITALS: BP 124/66; TEMP 97.7; O2SAT 96
[2025-04-21 20:00] VITALS: BP 132/65; TEMP 98.2; O2SAT 96
[2025-04-22] VITALS: BP 139/73; TEMP 98.2; O2SAT 96
[2025-04-22 02:36] VITALS: BP 125/65; TEMP 98.2; O2SAT 97
[2025-04-22 06:51] VITALS: BP 129/69; TEMP 97.5; O2SAT 96
[2025-04-22 07:30] VITALS: BP 135/72; TEMP 97.3; O2SAT 97
[2025-04-22 16:00] VITALS: BP 130/64; TEMP 97.5; O2SAT 96
[2025-04-22 20:00] VITALS: BP 112/59; TEMP 99; O2SAT 95
[2025-04-23 04:11] VITALS: BP 112/57; O2SAT 96
[2025-04-23 08:00] VITALS: BP 123/70; TEMP 98.1; O2SAT 97
[2025-04-23 16:00] VITALS: BP 126/68; TEMP 97.9; O2SAT 99
[2025-04-23 20:00] VITALS: BP 121/72; TEMP 98.1; O2SAT 95
[2025-04-24 09:03] VITALS: BP 119/62; TEMP 97.5; O2SAT 95
[2025-04-24 10:03] VITALS: BP 114/60
[2025-04-24] MEDS ORDERED: LISI20TA30 PO (21:50)
[2025-04-24] MEDS ORDERED: LISINOPRIL (20MG) 20 MG TABLET PO SCH (22:00)
== END 2025-04-24 15:12 | DRG 103 ==
LOC: ER 14:28 → MED 21:08 → TELE 04-19 05:45 → MED 04-20 09:22
PROVIDERS: ADMIT Student in an Organized Health Care Education/Training Program
DX: G43.909 Migraine, unspecified, not intractable, without status migrainosus (principal); D68.59 Other primary thrombophilia; E87.1 Hypo-osmolality and hyponatremia; M54.81 Occipital neuralgia; E86.0 Dehydration; E66.9 Obesity, unspecified; F32.9 Major depressive disorder, single episode, unspecified; I11.0 Hypertensive heart disease with heart failure; I50.9 Heart failure, unspecified; E11.9 Type 2 diabetes mellitus without complications; E78.5 Hyperlipidemia, unspecified; M19.90 Unspecified osteoarthritis, unspecified site; R26.9 Unspecified abnormalities of gait and mobility; E55.9 Vitamin D deficiency, unspecified; Z90.710 Acquired absence of both cervix and uterus; Z90.49 Acquired absence of other specified parts of digestive tract; Z98.890 Other specified postprocedural states; Z88.2 Allergy status to sulfonamides; Z88.5 Allergy status to narcotic agent; Z79.899 Other long term (current) drug therapy; Z79.84 Long term (current) use of oral hypoglycemic drugs; Z79.82 Long term (current) use of aspirin; Z88.8 Allergy status to other drugs, medicaments and biological substances; Z91.041 Radiographic dye allergy status; F41.9 Anxiety disorder, unspecified; D64.9 Anemia, unspecified; R79.89 Other specified abnormal findings of blood chemistry; Z68.31 Body mass index [BMI] 31.0-31.9, adult; H40.9 Unspecified glaucoma
CPT/HCPCS: 36415; 70450-TC; 80048-TC; 81001; 82962-TC; 83735-TC; 84100-TC; 84484-TC; 85025-TC; 87086-TC; 97110-TC; 97116-TC; 97530-TC; A4223; G0378; J1650; J1815; J1885; J3475; J7030

== ENCOUNTER 2025-04-24 16:12 | Emergency (ER) | payer MEDICARE, OTHER ==
[~2025-04-24] VITALS: Ht 144.8 cm; Wt 66.7 kg
[~2025-04-24 16:12] MED LIST changes: +GABA-532 PO; +MAGN400T52 PO; +PARO10TA4 PO; +PROP10TA68 PO; +VALS40TA12 PO
[2025-04-24 16:18] VITALS: TEMP 97.9
[2025-04-24] MEDS: IV NS 0.9% 1,000 ML BAG IV ONE (16:55)
[2025-04-24 17:00] LABS: PLATELET COUNT (AUTO) 327 K/uL (150-450); RED BLOOD CELL COUNT(AUTO) 3.56 MIL/uL (4.0-5.2); RED CELL DISTRIBUTION WIDTH 14.2 % (11.5-15.0); WHITE BLOOD COUNT (AUTO) 8.9 K/uL (4.3-11.0)
[2025-04-24 17:08] LABS: CALCIUM, SERUM 9.5 mg/dL (8.5-10.1); CREATININE 1.1 mg/dL (0.6-1.3); SODIUM SERUM 138 mmol/L (136-145); UREA NITROGEN, BLOOD 26 mg/dL (7-18)
[2025-04-24 17:15] LABS: ASPARTATE AMINOTRANSFERASE 12 U/L (15-37); TOTAL PROTEIN, SERUM 7.3 g/dL (6.4-8.2)
[2025-04-24 17:26] LABS: LACTIC ACID 1.2 mmol/L (0.4-2.0)
[2025-04-24 19:00] VITALS: O2SAT 95
[2025-04-24 19:21] LABS: APPEARANCE,URINE CLEAR (CLEAR); BLOOD, URINE NEGATIVE Ery/uL (NEGATIVE); LEUKOCYTE ESTERASE ,URINE 1+ (NEGATIVE); NITRITE, URINE NEGATIVE (NEGATIVE); UGLUCOSE NEGATIVE (NEGATIVE)
[2025-04-24 19:58] LABS: ADD URINE CULTURE YES
[2025-04-24 19:59] LABS: SQUAMOUS EPITHELIAL CELL,UR 0-2 /HPF (None Seen)
[2025-04-24] MEDS ORDERED: LISINOPRIL (20MG) 20 MG TABLET ONE (21:49)
[2025-04-24] MEDS ORDERED: LISI20TA30 PO (21:50)
[2025-04-24 22:00] VITALS: BP 157/86
[2025-04-24] MEDS: LISINOPRIL (20MG) 20 MG TABLET PO SCH (22:00)
[2025-04-24] MEDS ORDERED: DIAZEPAM 5 MG TABLET ONE (22:04)
[2025-04-24] MEDS: DIAZEPAM 5 MG TABLET PO ONE (22:07)
== END 2025-04-24 22:10 ==
LOC: ER 16:13
DX: F41.9 Anxiety disorder, unspecified (principal); R42 Dizziness and giddiness; R07.9 Chest pain, unspecified; R53.1 Weakness; R51.9 Headache, unspecified; E11.9 Type 2 diabetes mellitus without complications; E78.5 Hyperlipidemia, unspecified; I10 Essential (primary) hypertension; M19.90 Unspecified osteoarthritis, unspecified site; Z79.82 Long term (current) use of aspirin; Z79.84 Long term (current) use of oral hypoglycemic drugs; Z79.899 Other long term (current) drug therapy; Z88.2 Allergy status to sulfonamides; Z88.5 Allergy status to narcotic agent; Z88.8 Allergy status to other drugs, medicaments and biological substances; Z90.49 Acquired absence of other specified parts of digestive tract; Z91.013 Allergy to seafood; Z86.79 Personal history of other diseases of the circulatory system; Z87.19 Personal history of other diseases of the digestive system
CPT/HCPCS: 99285; 96360; 71045; 93005; 85025; 80048; 87040 ×2; 87086; 83605; 83690; 80076; 81001; 36415; 84484 ×2; J7030

== ENCOUNTER 2025-04-29 00:40 | Inpatient (IN) | payer MEDICARE, OTHER ==
[~2025-04-29] VITALS: Ht 157.5 cm; Wt 62.6 kg
[2025-04-29] VITALS (7 sets, daily range): BP systolic 98–150; BP diastolic 62–85; TEMP 97.5–97.9; O2SAT 97–99
[~2025-04-29 00:40] MED LIST changes: -CEPH500C2 PO; +LISI20TA30 PO; -LISI40TA13 PO
[2025-04-29 02:58] LABS: PLATELET COUNT (AUTO) 306 K/uL (150-450); RED BLOOD CELL COUNT(AUTO) 3.42 MIL/uL (4.0-5.2); RED CELL DISTRIBUTION WIDTH 14.2 % (11.5-15.0); WHITE BLOOD COUNT (AUTO) 7.4 K/uL (4.3-11.0)
[2025-04-29 03:06] LABS: CALCIUM, SERUM 9.1 mg/dL (8.5-10.1); CREATININE 0.9 mg/dL (0.6-1.3); SODIUM SERUM 137.0 mmol/L (136-145); UREA NITROGEN, BLOOD 21.0 mg/dL (7-18)
[2025-04-29 03:19] LABS: ASPARTATE AMINOTRANSFERASE 12.0 U/L (15-37); NT-PRO BNP 139.0 pg/mL (0-125); TOTAL PROTEIN, SERUM 6.8 g/dL (6.4-8.2)
[2025-04-29] MEDS ORDERED: Z GUARD REMEDY 4 OZ OINT TP PRN (05:00)
[2025-04-29] MEDS ORDERED: ONDANSETRON HCL/PF 4 MG/2 ML VIAL IVP PRN (05:00)
[2025-04-29] MEDS ORDERED: ACETAMINOPHEN 325 MG TABLET PO PRN (05:00)
[2025-04-29] MEDS ORDERED: DEXTROSE 50%-WATER 50 ML DISP.SYRIN IV PRN (05:00)
[2025-04-29] MEDS ORDERED: MAG HYDROX/AL HYDROX/SIMETH 30 ML UDC PO PRN (05:00)
[2025-04-29] MEDS ORDERED: MAGNESIUM HYDROXIDE 30 ML UDC PO PRN (05:00)
[2025-04-29] MEDS: BLOOD SUGAR DIAGNOSTIC 1 EACH STRIP IN SCH (07:48)
[2025-04-29] MEDS ORDERED: ACET-868 PO (08:08)
[2025-04-29] MEDS ORDERED: ONDA4TAB5 PO (08:08)
[2025-04-29] MEDS: VALSARTAN 40 MG TABLET PO SCH (09:00)
[2025-04-29] MEDS: AMLODIPINE BESYLATE 5 MG TABLET PO SCH (09:00)
[2025-04-29] MEDS: GABAPENTIN 100 MG CAPSULE PO SCH (09:00)
[2025-04-29] MEDS: DIAZEPAM 5 MG TABLET PO SCH ×2 (09:00→22:29)
[2025-04-29] MEDS: LISINOPRIL (20MG) 20 MG TABLET PO SCH (09:00)
[2025-04-29] MEDS ORDERED: ONDANSETRON 4 MG TAB.RAPDIS PO PRN (09:00)
[2025-04-29] MEDS: METFORMIN 500 MG TABLET PO SCH (10:25)
[2025-04-29] MEDS: ASPIRIN 81 MG TAB.CHEW PO SCH (10:25)
[2025-04-29] MEDS: ENOXAPARIN SODIUM 40 MG/0.4 ML DISP.SYRIN SQ SCH (10:27)
[2025-04-29] MEDS: PAROXETINE HCL 10 MG TABLET PO SCH (10:28)
[2025-04-29] MEDS: IV NS 0.9% 500 ML IV ONE (11:23)
[2025-04-29] MEDS: MAGNESIUM OXIDE 400 MG TABLET PO SCH (21:31)
[2025-04-30] VITALS (7 sets, daily range): BP systolic 103–147; BP diastolic 68–83; TEMP 97.3–97.7; O2SAT 97–98
[2025-04-30 07:30] LABS: PLATELET COUNT (AUTO) 287 K/uL (150-450); RED BLOOD CELL COUNT(AUTO) 3.39 MIL/uL (4.0-5.2); RED CELL DISTRIBUTION WIDTH 13.9 % (11.5-15.0); WHITE BLOOD COUNT (AUTO) 6.4 K/uL (4.3-11.0)
[2025-04-30 07:41] LABS: CALCIUM, SERUM 9.0 mg/dL (8.5-10.1); CREATININE 0.8 mg/dL (0.6-1.3); PHOSPHORUS 4.2 mg/dL (2.5-4.9); SODIUM SERUM 141.0 mmol/L (136-145); UREA NITROGEN, BLOOD 23.0 mg/dL (7-18)
[2025-04-30] MEDS: VALSARTAN 80 MG TABLET PO SCH (08:41)
[2025-04-30] MEDS: IBUPROFEN 200 MG TABLET PO PRN (09:32)
[2025-04-30] MEDS: VALSARTAN 40 MG TABLET PO SCH (17:33)
[2025-04-30] MEDS: INSULIN REGULAR, HUMAN 100 UNIT/ML 3 ML VIAL SQ PRN (22:46)
[2025-04-30] MEDS: hydrALAZINE HCL IV 20 MG VIAL IV ONE (23:30)
[2025-05-01] VITALS: BP 138/80; TEMP 97.6; O2SAT 97
[2025-05-01] MEDS: ACETAMINOPHEN 325 MG TABLET PO PRN (00:11)
[2025-05-01] MEDS: hydrALAZINE HCL IV 20 MG VIAL IV ONE (03:52)
[2025-05-01 04:00] VITALS: BP 134/76; TEMP 97.8; O2SAT 97
[2025-05-01 08:00] VITALS: BP 151/76; TEMP 97.7; O2SAT 100
[2025-05-01] MEDS: IBUPROFEN 400 MG TABLET PO PRN (11:02)
[2025-05-01 12:00] VITALS: BP 155/92; TEMP 97.7; O2SAT 100
[2025-05-01] MEDS: AMLODIPINE BESYLATE 5 MG TABLET PO SCH (13:42)
[2025-05-01 16:00] VITALS: BP 134/81; TEMP 97.1; O2SAT 99
[2025-05-01] MEDS ORDERED: DIAZEPAM 5 MG TABLET PO SCH (16:00)
[2025-05-01] MEDS: DIAZEPAM 5 MG TABLET PO SCH (16:35)
[2025-05-01 20:00] VITALS: BP 147/83; TEMP 97.9; O2SAT 98
[2025-05-02] VITALS: BP 133/75
[2025-05-02 02:40] VITALS: BP 123/77
[2025-05-02 04:09] VITALS: BP 152/90; TEMP 97.6; O2SAT 97
[2025-05-02 08:00] VITALS: BP 144/72; TEMP 97.3; O2SAT 96
[2025-05-02 12:00] VITALS: BP 144/72; TEMP 97.3; O2SAT 96
[2025-05-02 16:00] VITALS: BP 125/70; TEMP 97.3; O2SAT 96
[2025-05-03] MEDS ORDERED: AMLODIPINE BESYLATE 5 MG TABLET PO SCH (09:00)
== END 2025-05-02 17:30 | DRG 641 ==
LOC: ER 00:46 → MEDSG1 04:10 → TELE1 08:23 → MEDSG1 04-30 09:40
PROVIDERS: ADMIT Internal Medicine; ATTEND Internal Medicine
DX: E86.0 Dehydration (principal); D68.59 Other primary thrombophilia; G43.909 Migraine, unspecified, not intractable, without status migrainosus; E87.1 Hypo-osmolality and hyponatremia; I27.20 Pulmonary hypertension, unspecified; F41.9 Anxiety disorder, unspecified; E11.9 Type 2 diabetes mellitus without complications; E78.5 Hyperlipidemia, unspecified; I11.0 Hypertensive heart disease with heart failure; I50.9 Heart failure, unspecified; M19.90 Unspecified osteoarthritis, unspecified site; R26.9 Unspecified abnormalities of gait and mobility; E55.9 Vitamin D deficiency, unspecified; Z88.5 Allergy status to narcotic agent; Z88.2 Allergy status to sulfonamides; Z88.8 Allergy status to other drugs, medicaments and biological substances; Z91.041 Radiographic dye allergy status; Z79.84 Long term (current) use of oral hypoglycemic drugs; Z79.82 Long term (current) use of aspirin; Z79.899 Other long term (current) drug therapy; Z90.710 Acquired absence of both cervix and uterus; Z90.49 Acquired absence of other specified parts of digestive tract; R79.89 Other specified abnormal findings of blood chemistry; D64.9 Anemia, unspecified; E66.9 Obesity, unspecified; F32.9 Major depressive disorder, single episode, unspecified; Z68.25 Body mass index [BMI] 25.0-25.9, adult; Z91.81 History of falling
CPT/HCPCS: 36415; 71045-TC; 80048-TC; 80053-TC; 82962-TC; 83735-TC; 83880; 84100-TC; 84484-TC; 85025-TC; 85378-TC; A4223; G0378; J0360; J1650; J1815; J7030

== ENCOUNTER 2025-06-30 01:17 | Emergency (ER) | payer MEDICARE, OTHER ==
[~2025-06-30] VITALS: Ht 152.4 cm; Wt 49.9 kg
[~2025-06-30 01:17] MED LIST changes: +ACET-868 PO; -IBUP-23 PO; -LISI20TA30 PO; +ONDA4TAB5 PO
[2025-06-30 01:37] VITALS: TEMP 98.2
[2025-06-30 02:01] LABS: PLATELET COUNT (AUTO) 273 K/uL (150-450); RED BLOOD CELL COUNT(AUTO) 3.30 MIL/uL (4.0-5.2); RED CELL DISTRIBUTION WIDTH 14.8 % (11.5-15.0); WHITE BLOOD COUNT (AUTO) 6.8 K/uL (4.3-11.0)
[2025-06-30 02:07] LABS: CALCIUM, SERUM 8.7 mg/dL (8.5-10.1); CREATININE 0.9 mg/dL (0.6-1.3); SODIUM SERUM 139 mmol/L (136-145); UREA NITROGEN, BLOOD 25 mg/dL (7-18)
[2025-06-30 02:20] LABS: ASPARTATE AMINOTRANSFERASE 11 U/L (15-37); NT-PRO BNP 22 pg/mL (0-125); TOTAL PROTEIN, SERUM 6.6 g/dL (6.4-8.2)
[2025-06-30 02:21] LABS: INR 1.02 (0.91-1.10)
[2025-06-30 03:32] VITALS: BP 128/74; O2SAT 94
== END 2025-06-30 03:56 ==
LOC: ER 01:24
DX: R07.89 Other chest pain (principal); E11.9 Type 2 diabetes mellitus without complications; D64.9 Anemia, unspecified; E66.9 Obesity, unspecified; F41.9 Anxiety disorder, unspecified; I11.9 Hypertensive heart disease without heart failure; I25.2 Old myocardial infarction; R06.02 Shortness of breath; M19.90 Unspecified osteoarthritis, unspecified site; Z79.82 Long term (current) use of aspirin; Z79.84 Long term (current) use of oral hypoglycemic drugs; Z79.899 Other long term (current) drug therapy; Z88.2 Allergy status to sulfonamides; Z88.5 Allergy status to narcotic agent; Z88.8 Allergy status to other drugs, medicaments and biological substances; Z90.49 Acquired absence of other specified parts of digestive tract
CPT/HCPCS: 36415; 71045-TC; 80048-TC; 80076-TC; 83880; 84484-TC; 85025-TC; 85730-TC